=== PATIENT | male | born 1930 | race Caucasian/White ===

== ENCOUNTER 2020-09-17 17:59 | Inpatient (IN) ==
--- NOTE | 2020-09-17 18:24 | Emergency Department Note ---
History of Present Illness General Chief complaint: Fall Stated complaint: hip dislocation Time Seen by Provider: 09/17/20 18:06 Source: patient, EMS, RN notes reviewed and old records reviewed Mode of arrival: ambulatory Limitations: no limitations History of Present Illness Maximum Pain Intensity: 2 This patient is an 89-year-old male who was brought in by EMS after apparently falling. He tells me he said he thinks he slipped on slippery floor as he turned too fast. He hit his head and his left hip pain he denies any syncope or loss of conscious. He has mild headache only. No change in vision. Denies ne ck pain chest pain shortness of breath or abdominal pain. He does not believe he is on any blood thinners. His left hip hurts with any movement. He has not had any surgery in the left hip before. No focal numbness or weakness besides limitation of the left leg/hip secondary to pain/deformity. No recent illness. Home Medications Medication Instructions Recorded Confirmed Type acetaminophen 500 mg tablet 1,000 mg PO Q6H PRN MDD 4g 09/17/20 09/17/20 History aspirin 81 mg tablet,delayed 81 mg PO DAILY 09/17/20 09/17/20 History release (Aspirin Low Dose) atorvastatin 20 mg tablet 20 mg PO DAILY 09/17/20 09/17/20 History cholecalciferol (vitamin D3) 25 25 mcg PO DAILY 09/17/20 09/17/20 History mcg (1,000 unit) tablet (Vitamin D3) docusate sodium 100 mg capsule 100 mg PO BID 09/17/20 09/17/20 History famotidine 20 mg tablet 20 mg PO BID 09/17/20 09/17/20 History melatonin 1 mg tablet 1 mg PO HS 09/17/20 09/17/20 History Allergies Allergy/AdvReac Type Severity Reaction Status Date / Time No Known Allergies Allergy Mild Verified 09/17/20 19:28 Past Med/Surg History Social History Smoking Status: Never smoker Preferred Language: Yoruba Feels Safe at Home: Yes Immunizations: Past medical historyhe denies. I did review the medication list is sent from [place] and he is on very few medications given his age Social historyhe lives at [place] Review of Systems A total of 10 systems reviewed and were otherwise negative Physical Exam Vital Signs Vital Signs - 24 hr 09/17/20 18:07 09/17/20 18:10 09/17/20 18:16 Temperature 36.8 C Temperature Source Oral Pulse Rate 90 84 Pulse Rate from SpO2 Sensor 86 Pulse Rhythm Regular Pulse Strength Normal Respiratory Rate 23 20 Respiratory Effort / Characteristics Non-Labored Spontaneous Respiratory Depth Normal Respiratory Pattern Regular Blood Pressure 195/112 H 195/112 H Blood Pressure Mean 139 139 Blood Pressure Position Sitting Pulse Oximetry 94 97 100 Oxygen Delivery Method Room Air Room Air Sepsis Recent Fever Within 48 Hours No Sepsis New/Unexplained Change in Mental Status No Sepsis Action Taken by Nursing No Action Required 09/17/20 18:30 09/17/20 19:00 Temperature Temperature Source Pulse Rate 94 H 97 H Pulse Rate from SpO2 Sensor 93 H 99 H Pulse Rhythm Pulse Strength Respiratory Rate 41 H 29 H Respiratory Effort / Characteristics Respiratory Depth Respiratory Pattern Blood Pressure 177/100 H 174/100 H Blood Pressure Mean 125 124 Blood Pressure Position Pulse Oximetry 100 95 Oxygen Delivery Method Sepsis Recent Fever Within 48 Hours Sepsis New/Unexplained Change in Mental Status Sepsis Action Taken by Nursing General: Well developed well nourished older male who in no acute distress, breathing comfortably on room air. Normal speech HEENT: Normal cephalic atraumatic with exception of some dried blood in the posterior scalp. There is a small abrasion but nothing amenable to suturing/magalis.. Pupils are equal round and reactive to light. Extraocular movements are intact. Oropharynx is pink with moist mucous membranes. No swelling of the mouth lips or tongue. Neck: Supple with a midline trachea. No meningeal signs or stiffness, no JVD or bruits. No Stridor. Chest: Clear to auscultation bilaterally. No wheezes or rhonchi. No increased work of breathing. Heart: Regular rate and rhythm without murmurs or gallops. Abdomen: Soft nontender, nondistended without rebound guarding or rigidity. Extremities: No cyanosis clubbing or edema. No calf tenderness or assymetry. Left lower extremity is shortened compared to the right and is tender and swollen along the left lateral hip. He is able to wiggle the toes is good capillary refill and sensation. He does have a distal pulse. There is no laceration or skin break. There is no surgical incisions along the hip. Spine/Back. Non tender to palpation. No CVA tenderness Skin: Good turgor without rashes. Neurologic exam: Cranial nerves two through 12 are intact. Motor and sensation are intact and symmetrical throughout. Course Administered Medications Discontinued Medications Morphine Sulfate (Morphine Sulfate 2 Mg/Ml Carp) 2 mg IV NOW STA Stop: 09/17/20 18:59 Last Admin: 09/17/20 19:03 Dose: 2 mg Documented by: [id number] Ondansetron HCl (Ondansetron Inj 2 Mg/Ml 2 Ml Vial) 4 mg IV NOW STA Stop: 09/17/20 18:59 Last Admin: 09/17/20 19:03 Dose: 4 mg Documented by: [id number] Medical Decision Making Differential Diagnosis Hip fracture, hip dislocation, trauma, head injury, cervical spine injury, intracranial hemorrhage, syncope, electrolyte or metabolic abnormality, Covid Medical Records Attestation: I reviewed the patient's medical records. Home Medications Current Medication List: was personally reviewed by me Laboratory Data Attestation: I reviewed the patient's lab results. Result diagrams: 09/17/20 18:15 09/17/20 18:15 Lab Results 09/17/20 09/17/20 09/17/20 Range/Units 18:15 18:15 18:15 WBC 8.33 (4.8-10.8) K/uL RBC 4.61 L (4.7-6.1) M/uL Hgb 15.2 (14.0-18.0) g/dL Hct 44.3 (42-52) % MCV 96.1 (80-100) fL MCH 33.0 (25-34) pg MCHC 34.3 (32-36) g/dL RDW Std Deviation 43.9 (36.4-46.3) fL RDW Coeff of Tri 12.5 (11.5-14.5) % Plt Count 221 (130-400) K/uL MPV 9.0 (7.4-10.4) fL Immature Gran % (Auto) 0.1 % Neut % (Auto) 53.0 % Lymph % (Auto) 35.9 % [place] % (Auto) 9.1 % Eos % (Auto) 1.7 % Baso % (Auto) 0.2 % Neut # (Auto) 4.41 (1.4-6.5) K/uL Lymph # (Auto) 2.99 (1.2-3.4) K/uL [place] # (Auto) 0.76 H (0.11-0.59) K/uL Eos # (Auto) 0.14 (0-0.5) K/uL Baso # (Auto) 0.02 (0-0.2) K/uL Immature Gran # (Auto) 0.01 (0.00-0.02) K/uL PT 9.4 (9.0-12.0) Seconds INR 0.9 (0.9-1.1) APTT 24.2 (21.0-31.0) Seconds PTT Ratio 0.9 Sodium 139 (136-145) mmol/L Potassium 4.0 (3.5-5.1) mmol/L Chloride 108 H (98-107) mmol/L Carbon Dioxide 24 (21-32) mmol/L Anion Gap 7.0 (3-11) BUN 20 H (7-18) mg/dl Creatinine 1.15 (0.6-1.4) mg/dl Est Cr Clr Drug Dosing 45.8 ml/min Est GFR ( Amer) 65.5 ml/min Est GFR (Non-Af Amer) 56.5 ml/min BUN/Creatinine Ratio 17.4 (10-20) Glucose 98 (70-99) mg/dl Calcium 9.4 (8.5-10.1) mg/dl Magnesium 2.1 (1.8-2.4) mg/dl Total Bilirubin 0.3 (0.2-1) mg/dl AST 24 (15-37) U/L ALT 22 (12-78) U/L Alkaline Phosphatase 116 (45-117) U/L Total Protein 7.7 (6.4-8.2) gm/dl Albumin 3.7 (3.4-5.0) gm/dl Globulin 4.0 (2.5-4.0) gm/dl Albumin/Globulin Ratio 0.9 (0.9-2) TSH 3.300 (0.300-4.500) uIu/ml Specimen Hemolysis COVID-19 Eval Order 09/17/20 Range/Units 19:42 WBC (4.8-10.8) K/uL RBC (4.7-6.1) M/uL Hgb (14.0-18.0) g/dL Hct (42-52) % MCV (80-100) fL MCH (25-34) pg MCHC (32-36) g/dL RDW Std Deviation (36.4-46.3) fL RDW Coeff of Tri (11.5-14.5) % Plt Count (130-400) K/uL MPV (7.4-10.4) fL Immature Gran % (Auto) % Neut % (Auto) % Lymph % (Auto) % [place] % (Auto) % Eos % (Auto) % Baso % (Auto) % Neut # (Auto) (1.4-6.5) K/uL Lymph # (Auto) (1.2-3.4) K/uL [place] # (Auto) (0.11-0.59) K/uL Eos # (Auto) (0-0.5) K/uL Baso # (Auto) (0-0.2) K/uL Immature Gran # (Auto) (0.00-0.02) K/uL PT (9.0-12.0) Seconds INR (0.9-1.1) APTT (21.0-31.0) Seconds PTT Ratio Sodium (136-145) mmol/L Potassium (3.5-5.1) mmol/L Chloride (98-107) mmol/L Carbon Dioxide (21-32) mmol/L Anion Gap (3-11) BUN (7-18) mg/dl Creatinine (0.6-1.4) mg/dl Est Cr Clr Drug Dosing ml/min Est GFR ( Amer) ml/min Est GFR (Non-Af Amer) ml/min BUN/Creatinine Ratio (10-20) Glucose (70-99) mg/dl Calcium (8.5-10.1) mg/dl Magnesium (1.8-2.4) mg/dl Total Bilirubin (0.2-1) mg/dl AST (15-37) U/L ALT (12-78) U/L Alkaline Phosphatase (45-117) U/L Total Protein (6.4-8.2) gm/dl Albumin (3.4-5.0) gm/dl Globulin (2.5-4.0) gm/dl Albumin/Globulin Ratio (0.9-2) TSH (0.300-4.500) uIu/ml Specimen Hemolysis COVID-19 Eval Order Covid19 at [facility] Imaging Data My Impression: X-ray of left hip/pelvis: There was a comminuted left femur fracture that was intertrochanteric with some angulation. Radiologist's Impression: Hip/Pelvis X-Ray 09/17/20 18:16 XR hip LT 2V w pelvis HISTORY: 89 years-old Male left hip pain, fall acute left hip pain status post fall COMPARISON: CT abdomen and pelvis 02/18/2007 TECHNIQUE: AP view of the pelvis with 2 views of the left hip FINDINGS: Mild to moderate osteoarthritis of the there is an acute comminuted intertrochanteric fracture of the left femur with mild impaction and mild apex superior lateral angulation. The greater trochanteric fracture fragment is displaced laterally 2.5 cm. The lesser trochanteric fracture fragment is displaced a few millimeters medially. Moderate adjacent soft tissue swelling. IMPRESSION: Acute comminuted intertrochanteric fracture of the left femur with mild impaction, angulation and displacement. ACT 112: Negative or not required by law. The above report was generated using voice recognition software. It may contain grammatical, syntax or spelling errors. Electronically signed by: Samuel Wayne M.D. 09/17/2020 6:50 PM Chest X-Ray 09/17/20 18:17 XR chest 1V portable HISTORY: 89 years-old Male fall acute chest trauma status post fall COMPARISON: Acute abdominal series radiographs 02/18/2007 TECHNIQUE: Portable supine AP view of the chest FINDINGS: Cardiomediastinal and hilar silhouettes are within normal limits. Unchanged blunting of the left costophrenic angle. Unchanged calcified granuloma of the left lung base. Degenerative changes of the shoulders and spine. Hiatal hernia. IMPRESSION: No acute process. ACT 112: Negative or not required by law. The above report was generated using voice recognition software. It may contain grammatical, syntax or spelling errors. Electronically signed by: Samuel Wayne M.D. 09/17/2020 6:[address] 09/17/20 18:41 CT cervical spine wo con CLINICAL HISTORY: 89 years-old Male with fall. Acute neck pain status post fall COMPARISON: Head CT of same day TECHNIQUE: Multiple axial CT images of the cervical spine were obtained without contrast. A dose lowering technique was utilized adhering to the principles of ALARA. FINDINGS: Severe degeneration at C1-C2. Mild multilevel intervertebral disc space narrowing with moderate spondylitic spurring and moderate to severe facet arthrosis. No acute fracture or subluxation. No endplate erosions. Evaluation of the central canal and neuroforamina is better assessed by MRI. Multilevel neural foraminal narrowing is noted. Mastoid air cells are clear. Pleural parenchymal scarring of the lung apices. No prevertebral edema. Calcified plaque of the carotid bulbs. IMPRESSION: No acute fracture or subluxation. ACT 112: Negative or not required by law. The above report was generated using voice recognition software. It may contain grammatical, syntax or spelling errors. Electronically signed by: Samuel Wayne M.D. 09/17/2020 7:[address] 09/17/20 18:41 CT head/brain wo con CLINICAL HISTORY: 89 years-old Male with fall. Acute head and neck injury status post fall TECHNIQUE: Multiple axial CT images of the head were obtained without contrast. A dose lowering technique was utilized adhering to the principles of ALARA. CT DOSE: 994.22 mGy.cm COMPARISON: CT cervical spine of same day FINDINGS: Motion degraded exam. No acute intracranial hemorrhage, midline shift, intracranial mass, hydrocephalus, territorial ischemia or abnormal extra-axial collection. Age-related involutional changes. White matter hypodensities suggestive of chronic microvascular ischemic disease. Cerebral vascular calcifications. The calvarium is intact. Prior bilateral lens repair. The paranasal sinuses, mastoid air cells, and middle ear cavities are clear. IMPRESSION: No acute intracranial abnormality. ACT 112: Negative or not required by law. The above report was generated using voice recognition software. It may contain grammatical, syntax or spelling errors. Electronically signed by: Samuel Wayne M.D. 09/17/2020 7:46 PM Abdomen/Pelvis CT 09/17/20 19:[address] WITHOUT CONTRAST CT DOSE: 270.56 mGy.cm HISTORY: Acute generalized abdominal pain status post fall fall TECHNIQUE: Multiaxial CT images of the abdomen and pelvis were performed without contrast. A dose lowering technique was utilized adhering to the principles of ALARA. COMPARISON STUDY: CT abdomen pelvis 02/18/2007. FINDINGS: Trace left pleural effusion. There is associated pleural thickening, new from 2006. Mild left lung base atelectasis/scarring. The right lung base is clear. No pneumatosis or pneumoperitoneum. Coronary artery calcifications. The unenhanced spleen, pancreas and adrenal glands are unremarkable. Cholecystectomy. Unremarkable liver. Mild nonspecific bilateral perinephric stranding. No hydronephrosis. Prostamegaly. Unremarkable urinary bladder. Calcified plaque the abdominal aorta without aneurysm. No adenopathy. Small to moderate hiatal hernia. Moderate sized diverticulum involves the third portion the duodenum. No bowel obstruction or bowel wall thickening. Colonic diverticulosis. No CT evidence of acute diverticulitis. Small fat and small bowel-containing right inguinal hernia without obstruction. There is an acute comminuted mildly displaced, impacted and related fracture of the left intertrochanteric femur. Mild deep tissue edema. Demineralized appearance of the bones. Chronic appearing left-sided rib fractures. IMPRESSION: 1. Acute mildly impacted, comminuted, displaced and angulated intratrochanteric fracture of the left femur. 2. No acute intra-abdominal or intrapelvic abnormality. 3. Trace left pleural effusion with left lung base pleural thickening. 4. Small to moderate hiatal hernia. 5. Small fat and small bowel containing right inguinal hernia. No bowel obstruction. 6. Additional findings as above. ACT 112: Negative or not required by law. The above report was generated using voice recognition software. It may contain grammatical, syntax or spelling errors. Electronically signed by: Samuel Wayne M.D. 09/17/2020 8:13 PM ECG Data Attestation: I personally reviewed and interpreted this ECG as follows: Indication: + weakness Rate (beats per minute): 100 Rhythm: + sinus with SA ECG Intervals/blocks: + Normal QRS, + Normal QT and + Normal IA ECG [place]: + Normal ECG Findings: no PACs or no PVCs Comparison ECG Date: from (02/18/07) Change: no significant change MDM Narrative This patient comes in as described above. He was placed on a college advisor room C7. He suffered what sounds like a mechanical fall he hit his head and his hip. His hip is obviously rotated and shortened concern for fracture and/or dislocation. In light of this, I did order a x-ray of the hip and pelvis initially as well as a chest x-ray. I called the charge nurse to try to expedite this. Blood work was obtained. EKG was obtained which does not show any definite ischemic changes or significant arrhythmia. X-rays of the hip shows a comminuted fracture without dislocation. There is no pelvic fracture. He was hemodynamically stable and sent over to CAT scan. CAT scan of his head and neck were unremarkable as well as the pelvis besides the hip fracture. There are no other acute findings. He has a small abrasion to the posterior scalp which does not require any suturing or stapling. He believes he is up-to-date on his tetanus booster. He has nursing of electrolyte or metabolic abnormalities. He was also Covid tested and was negative. Due to his hip fracture, he will need to be admitted for further treatment and evaluation. I have consulted Dr. Lozada who will see him in ER for these measures. Continuous cardiac monitoring: Due to the patient's symptoms, he was placed on a college advisor and orders placed in EMR. He was noted to be in normal sinus rhythm with a rate of 95 upon my interpretation. Impression & Plan Hip fracture, Fall, Closed head injury, Up to date with [id number] vaccination, Acute hip pain Discharge Plan Visit Data Chief Complaint: Fall Stated Complaint: hip dislocation ED Provider: Adarsh Ferreira Discharge Problem: Hip fracture, Fall, Closed head injury, Up to date with [id number] vaccination, Acute hip pain Forms Stand Alone Forms: My [facility] Prescriptions Prescriptions: No Action atorvastatin 20 mg tablet 20 mg PO DAILY RF: 0 aspirin [Aspirin Low Dose] 81 mg Tablet,Delayed Release (Dr/Ec) 81 mg PO DAILY RF: 0 famotidine 20 mg tablet 20 mg PO BID RF: 0 docusate sodium 100 mg Capsule 100 mg PO BID RF: 0 melatonin 1 mg Tablet 1 mg PO HS RF: 0 cholecalciferol (vitamin D3) [Vitamin D3] 25 mcg (1,000 unit) Tablet 25 mcg PO DAILY RF: 0 acetaminophen 500 mg Tablet 1,000 mg PO Q6H MDD 4g PRN (Reason: Fever Or Pain) RF: 0 Referrals Referrals: [facility] [Primary Care Provider] - Discharge Problem: Hip fracture Qualifiers: Encounter type: initial encounter Fracture type: closed Laterality: left Qualified Code(s): S72.002A - Fracture of unspecified part of neck of left femur, initial encounter for closed fracture Fall Qualifiers: Encounter type: initial encounter Qualified Code(s): W19.XXXA - Unspecified fall, initial encounter Closed head injury Qualifiers: Encounter type: initial encounter Qualified Code(s): S09.90XA - Unspecified injury of head, initial encounter Acute hip pain Qualifiers: Laterality: left Qualified Code(s): M25.552 - Pain in left hip
[2020-09-17 18:28] LABS: Basophils # (auto) 0.02 K/uL (0-0.2); Basophils % (auto) 0.2 %; Eosinophils # (auto) 0.14 K/uL (0-0.5); Eosinophils % (auto) 1.7 %; Hematocrit (blood only) 44.3 % (42-52); Hemoglobin 15.2 g/dL (14.0-18.0); Immature Granulocytes # (auto) 0.01 K/uL (0.00-0.02); Immature Granulocytes % (auto) 0.1 %; Lymphocytes # (auto) 2.99 K/uL (1.2-3.4); Lymphocytes % (auto) 35.9 %; Mean Corpuscular Hgb Conc 34.3 g/dL (32-36); Mean Corpuscular Volume 96.1 fL (80-100); Monocytes # (auto) 0.76 K/uL (0.11-0.59); Monocytes % (auto) 9.1 %; Neutrophils # (auto) 4.41 K/uL (1.4-6.5); Platelet Count 221 K/uL (130-400); RDW Coefficient of Variation 12.5 % (11.5-14.5); RDW Standard Deviation 43.9 fL (36.4-46.3); Red Blood Count 4.61 M/uL (4.7-6.1); White Blood Count 8.33 K/uL (4.8-10.8)
[2020-09-17 18:41] LABS: INR 0.9 (0.9-1.1); Partial Thromboplastin Ratio 0.9; Partial Thromboplastin Time 24.2 Seconds (21.0-31.0); Prothrombin Time 9.4 Seconds (9.0-12.0)
[2020-09-17 18:46] LABS: Albumin Level 3.7 gm/dl (3.4-5.0); BUN Creatinine Ratio 17.4 (10-20); Calcium 9.4 mg/dl (8.5-10.1); Creatinine Clr Calc Pharmacy 45.8 ml/min; Est GFR (African American) 65.5 ml/min; Est GFR (Non-African American) 56.5 ml/min; Magnesium 2.1 mg/dl (1.8-2.4)
--- NOTE | 2020-09-17 18:52 | XRay Report ---
XR hip LT 2V w pelvis HISTORY: 89 years-old Male left hip pain, fall acute left hip pain status post fall COMPARISON: CT abdomen and pelvis 02/18/2007 TECHNIQUE: AP view of the pelvis with 2 views of the left hip FINDINGS: Mild to moderate osteoarthritis of the there is an acute comminuted intertrochanteric fracture of the left femur with mild impaction and mild apex superior lateral angulation. The greater trochanteric f racture fragment is displaced laterally 2.5 cm. The lesser trochanteric fracture fragment is displace d a few millimeters medially. Moderate adjacent soft tissue swelling. IMPRESSION: Acute comminuted intertrochanteric fracture of the left femur with mild impaction, angula tion and displacement. ACT 112: Negative or not required by law. The above report was generated using voice recognition software. It may contain grammatical, syntax o r spelling errors. Electronically signed by: Samuel Wayne M.D. 09/17/2020 6:50 PM
--- NOTE | 2020-09-17 18:54 | XRay Report ---
XR chest 1V portable HISTORY: 89 years-old Male fall acute chest trauma status post fall COMPARISON: Acute abdominal series radiographs 02/18/2007 TECHNIQUE: Portable supine AP view of the chest FINDINGS: Cardiomediastinal and hilar silhouettes are within normal limits. Unchanged blunting of the left cost ophrenic angle. Unchanged calcified granuloma of the left lung base. Degenerative changes of the shou lders and spine. Hiatal hernia. IMPRESSION: No acute process. ACT 112: Negative or not required by law. The above report was generated using voice recognition software. It may contain grammatical, syntax o r spelling errors. Electronically signed by: Samuel Wayne M.D. 09/17/2020 6:52 PM
[2020-09-17 18:58] LABS: Albumin Globulin Ratio 0.9 (0.9-2); Bilirubin,Total 0.3 mg/dl (0.2-1); Thyroid Stimulating Hormone 3.3 uIu/ml (0.300-4.500); Total Protein 7.7 gm/dl (6.4-8.2)
[2020-09-17] MEDS ORDERED: MoRPHine SULFATE 2 MG/ML CARP IV STA (18:58)
[2020-09-17] MEDS ORDERED: ONDANSETRON INJ 2 MG/ML 2 ML VIAL IV STA (18:58)
--- NOTE | 2020-09-17 19:47 | CT Scan Report ---
CT head/brain wo con CLINICAL HISTORY: 89 years-old Male with fall. Acute head and neck injury status post fall TECHNIQUE: Multiple axial CT images of the head were obtained without contrast. A dose lowering tech nique was utilized adhering to the principles of ALARA. CT DOSE: 994.22 mGy.cm COMPARISON: CT cervical spine of same day FINDINGS: Motion degraded exam. No acute intracranial hemorrhage, midline shift, intracranial mass, hydrocephal us, territorial ischemia or abnormal extra-axial collection. Age-related involutional changes. White matter hypodensities suggestive of chronic microvascular ischemic disease. Cerebral vascular calcific ations. The calvarium is intact. Prior bilateral lens repair. The paranasal sinuses, mastoid air cells, and m iddle ear cavities are clear. IMPRESSION: No acute intracranial abnormality. ACT 112: Negative or not required by law. The above report was generated using voice recognition software. It may contain grammatical, syntax o r spelling errors. Electronically signed by: Samuel Wayne M.D. 09/17/2020 7:46 PM
--- NOTE | 2020-09-17 19:53 | CT Scan Report ---
CT cervical spine wo con CLINICAL HISTORY: 89 years-old Male with fall. Acute neck pain status post fall COMPARISON: Head CT of same day TECHNIQUE: Multiple axial CT images of the cervical spine were obtained without contrast. A dose low ering technique was utilized adhering to the principles of ALARA. FINDINGS: Severe degeneration at C1-C2. Mild multilevel intervertebral disc space narrowing with mode rate spondylitic spurring and moderate to severe facet arthrosis. No acute fracture or subluxation. N o endplate erosions. Evaluation of the central canal and neuroforamina is better assessed by MRI. Mul tilevel neural foraminal narrowing is noted. Mastoid air cells are clear. Pleural parenchymal scarring of the lung apices. No prevertebral edema. Calcified plaque of the carot id bulbs. IMPRESSION: No acute fracture or subluxation. ACT 112: Negative or not required by law. The above report was generated using voice recognition software. It may contain grammatical, syntax o r spelling errors. Electronically signed by: Samuel Wayne M.D. 09/17/2020 7:52 PM
--- NOTE | 2020-09-17 20:15 | CT Scan Report ---
ABDOMEN AND PELVIS CT WITHOUT CONTRAST CT DOSE: 270.56 mGy.cm HISTORY: Acute generalized abdominal pain status post fall fall TECHNIQUE: Multiaxial CT images of the abdomen and pelvis were performed without contrast. A dose lo wering technique was utilized adhering to the principles of ALARA. COMPARISON STUDY: CT abdomen pelvis 02/18/2007. FINDINGS: Trace left pleural effusion. There is associated pleural thickening, new from 2006. Mild le ft lung base atelectasis/scarring. The right lung base is clear. No pneumatosis or pneumoperitoneum. Coronary artery calcifications. The unenhanced spleen, pancreas and adrenal glands are unremarkable. Cholecystectomy. Unremarkable li anthony. Mild nonspecific bilateral perinephric stranding. No hydronephrosis. Prostamegaly. Unremarkable urinary bladder. Calcified plaque the abdominal aorta without aneurysm. No adenopathy. Small to moderate hiatal hernia. Moderate sized diverticulum involves the third portion the duodenum. No bowel obstruction or bowel wall thickening. Colonic diverticulosis. No CT evidence of acute diver ticulitis. Small fat and small bowel-containing right inguinal hernia without obstruction. There is a n acute comminuted mildly displaced, impacted and related fracture of the left intertrochanteric femu r. Mild deep tissue edema. Demineralized appearance of the bones. Chronic appearing left-sided rib fr actures. IMPRESSION: 1. Acute mildly impacted, comminuted, displaced and angulated intratrochanteric fracture of the left femur. 2. No acute intra-abdominal or intrapelvic abnormality. 3. Trace left pleural effusion with left lung base pleural thickening. 4. Small to moderate hiatal hernia. 5. Small fat and small bowel containing right inguinal hernia. No bowel obstruction. 6. Additional findings as above. ACT 112: Negative or not required by law. The above report was generated using voice recognition software. It may contain grammatical, syntax o r spelling errors. Electronically signed by: Samuel Wayne M.D. 09/17/2020 8:13 PM
--- NOTE | 2020-09-17 20:51 | History & Physical Report ---
Date of Service September 17, 2020 Assessment & Plan (1) Closed left hip fracture: Plan: N.p.o. after midnight Admit to [facility] 5/325, 1 p.o. every 6 hours as needed moderate pain, 2 p.o. every 6 hours as needed severe pain Dilaudid 0.25 mg IV every 3 hours as needed moderate pain Dilaudid 0.5 mg IV every 3 hours as needed severe pain NSS + KCl 20 mEq at 100 mils per hour Famotidine 20 mg IV every 12 hours Zofran 4 mg IV every 6 hours as needed Consult orthopedic surgery (2) Fall: Plan: Status post mechanical fall (3) Hyperlipidemia: Plan: Resume atorvastatin 20 mg daily after surgery (4) GERD (gastroesophageal reflux disease): Plan: Change famotidine to IV as noted (5) Insomnia: Plan: Melatonin 1 mg p.o. at bedtime as needed (6) Closed head injury: Plan: CT of head and cervical spine negative History of Present Illness Chief Complaint: The patient presents to the emergency department after a mechanical fall at his residence at [facility], where he fell on his left hip, and sustained immediate pain and inability to ambulate Primary Care Provider: [facility] The patient is a 89-year-old male with a past medical history including hype rlipidemia, GERD, insomnia, and vitamin D deficiency, who presents with symptoms as noted above. Work-up in the emergency department included x-ray of pelvis and hip, which showed a closed left hip fracture. CT scan of head, cervical spine and abdomen pelvis were all normal. COVID-19 test was negative Allergies Allergy/AdvReac Type Severity Reaction Status Date / Time No Known Allergies Allergy Mild Verified 09/17/20 19:28 Home Medications Medication Instructions Recorded Confirmed Type acetaminophen 500 mg tablet 1,000 mg PO Q6H PRN MDD 4g 09/17/20 09/17/20 History aspirin 81 mg tablet,delayed 81 mg PO DAILY 09/17/20 09/17/20 History release (Aspirin Low Dose) atorvastatin 20 mg tablet 20 mg PO DAILY 09/17/20 09/17/20 History cholecalciferol (vitamin D3) 25 25 mcg PO DAILY 09/17/20 09/17/20 History mcg (1,000 unit) tablet (Vitamin D3) docusate sodium 100 mg capsule 100 mg PO BID 09/17/20 09/17/20 History famotidine 20 mg tablet 20 mg PO BID 09/17/20 09/17/20 History melatonin 1 mg tablet 1 mg PO HS 09/17/20 09/17/20 History Past Med/Surg History Medical History (Updated 09/18/20 @ 03:24 by Chaka Casillas MD) GERD (gastroesophageal reflux disease) Hyperlipidemia Insomnia Social History Smoking Status: Never smoker Hx Alcohol Use: No Hx Substance Use: No Preferred Language: Belarusian Communication Ability: Effective Candle Maker Required: No Beliefs That Will Affect Care: None Current Living Situation: Spouse Other Information That Helps Us Care for You: No Feels Safe at Home: Yes Safety Concerns: Feels Safe At This Time Assistive Devices: Glasses Review of Systems Review of Systems: The patient denies chest pain, palpitations, shortness of breath, dyspnea on exertion, cough, lower extremity swelling, sore throat, fevers, chills, sweats, weight change, fatigue, nausea, vomiting, diarrhea , constipation, abdominal pain, pelvic pain, blood in urine or stool, dysuria, urinary frequency or urgency, lightheadedness, dizziness, headache, memory loss, loss of consciousness, rash, abnormal bruising or bleeding, focal or generalized weakness, numbness or tingling in arms, generalized arthralgias or myalgias, back or neck pain, or night sweats. The review of systems is otherwise negative other than for that already noted above, and at least 10 systems have been reviewed. Physical Exam Physical Exam: The patient is awake, alert and oriented 3, well developed and well nourished, normocephalic and atraumatic, lying in bed and in no acute distress. HEENT--PERRL, EOMI, mucous membranes and oropharynx dry. Neck--supple. No JVD. No bruits. Thyroid normal, trachea midline, no adenopathy. Heart--normal S1 and S2. No murmurs, rubs or gallops. Lungs--clear bilaterally, no respiratory distress, no accessory muscle use. Abdomen--normal bowel sounds and soft. Nontender. Nondistended, no hernias or masses, no organomegaly. Extremities--no cyanosis or clubbing. No edema. There are good distal pulses b/l. Dermatologic--normal skin turgor, normal color, no abnormal lymph nodes, no rash. Neurologic--cranial nerves II through XII grossly intact. Rheumatologic--normal range of motion. Psychiatric--normal affect. Results & Data Results & Data ([facility]) Vital Signs (Past 12 Hours) Vital Signs Temp Pulse Resp BP Pulse Ox 09/17/20 19:00 97 H 29 H 174/100 H 95 09/17/20 18:30 94 H 41 H 177/100 H 100 09/17/20 18:16 100 09/17/20 18:10 98.2 F 84 20 195/112 H 97 09/17/20 18:07 90 23 195/112 H 94 Laboratory Results Laboratory Results WBC 8.33 K/uL (4.8-10.8) 09/17/20 18:15 RBC 4.61 M/uL (4.7-6.1) L 09/17/20 18:15 Hgb 15.2 g/dL (14.0-18.0) 09/17/20 18:15 Hct 44.3 % (42-52) 09/17/20 18:15 MCV 96.1 fL (80-100) 09/17/20 18:15 MCH 33.0 pg (25-34) 09/17/20 18:15 MCHC 34.3 g/dL (32-36) 09/17/20 18:15 RDW Std Deviation 43.9 fL (36.4-46.3) 09/17/20 18:15 RDW Coeff of Tri 12.5 % (11.5-14.5) 09/17/20 18:15 Plt Count 221 K/uL (130-400) 09/17/20 18:15 MPV 9.0 fL (7.4-10.4) 09/17/20 18:15 Immature Gran % (Auto) 0.1 % 09/17/20 18:15 Neut % (Auto) 53.0 % 09/17/20 18:15 Lymph % (Auto) 35.9 % 09/17/20 18:15 [place] % (Auto) 9.1 % 09/17/20 18:15 Eos % (Auto) 1.7 % 09/17/20 18:15 Baso % (Auto) 0.2 % 09/17/20 18:15 Neut # (Auto) 4.41 K/uL (1.4-6.5) 09/17/20 18:15 Lymph # (Auto) 2.99 K/uL (1.2-3.4) 09/17/20 18:15 [place] # (Auto) 0.76 K/uL (0.11-0.59) H 09/17/20 18:15 Eos # (Auto) 0.14 K/uL (0-0.5) 09/17/20 18:15 Baso # (Auto) 0.02 K/uL (0-0.2) 09/17/20 18:15 Immature Gran # (Auto) 0.01 K/uL (0.00-0.02) 09/17/20 18:15 PT 9.4 Seconds (9.0-12.0) 09/17/20 18:15 INR 0.9 (0.9-1.1) 09/17/20 18:15 APTT 24.2 Seconds (21.0-31.0) 09/17/20 18:15 PTT Ratio 0.9 09/17/20 18:15 Sodium 139 mmol/L (136-145) 09/17/20 18:15 Potassium 4.0 mmol/L (3.5-5.1) 09/17/20 18:15 Chloride 108 mmol/L (98-107) H 09/17/20 18:15 Carbon Dioxide 24 mmol/L (21-32) 09/17/20 18:15 Anion Gap 7.0 (3-11) 09/17/20 18:15 BUN 20 mg/dl (7-18) H 09/17/20 18:15 Creatinine 1.15 mg/dl (0.6-1.4) 09/17/20 18:15 Est Cr Clr Drug Dosing 45.8 ml/min 09/17/20 18:15 Est GFR ( Amer) 65.5 ml/min 09/17/20 18:15 Est GFR (Non-Af Amer) 56.5 ml/min 09/17/20 18:15 BUN/Creatinine Ratio 17.4 (10-20) 09/17/20 18:15 Glucose 98 mg/dl (70-99) 09/17/20 18:15 Calcium 9.4 mg/dl (8.5-10.1) 09/17/20 18:15 Magnesium 2.1 mg/dl (1.8-2.4) 09/17/20 18:15 Total Bilirubin 0.3 mg/dl (0.2-1) 09/17/20 18:15 AST 24 U/L (15-37) 09/17/20 18:15 ALT 22 U/L (12-78) 09/17/20 18:15 Alkaline Phosphatase 116 U/L (45-117) 09/17/20 18:15 Total Protein 7.7 gm/dl (6.4-8.2) 09/17/20 18:15 Albumin 3.7 gm/dl (3.4-5.0) 09/17/20 18:15 Globulin 4.0 gm/dl (2.5-4.0) 09/17/20 18:15 Albumin/Globulin Ratio 0.9 (0.9-2) 09/17/20 18:15 TSH 3.300 uIu/ml (0.300-4.500) 09/17/20 18:15 Specimen Hemolysis 09/17/20 18:15 COVID-19 Eval Order Covid19 at [facility] 09/17/20 19:42 SARS-CoV-2 (PCR) NEGATIVE (Negative) 09/17/20 19:42 Blood Type O Positive 09/17/20 22:28 Antibody Screen NEGATIVE 09/17/20 22:28 Impressions Hip/Pelvis X-Ray 09/17/20 18:16 XR hip LT 2V w pelvis HISTORY: 89 years-old Male left hip pain, fall acute left hip pain status post fall COMPARISON: CT abdomen and pelvis 02/18/2007 TECHNIQUE: AP view of the pelvis with 2 views of the left hip FINDINGS: Mild to moderate osteoarthritis of the there is an acute comminuted intertrochanteric fracture of the left femur with mild impaction and mild apex superior lateral angulation. The greater trochanteric fracture fragment is displaced laterally 2.5 cm. The lesser trochanteric fracture fragment is displaced a few millimeters medially. Moderate adjacent soft tissue swelling. IMPRESSION: Acute comminuted intertrochanteric fracture of the left femur with mild impaction, angulation and displacement. ACT 112: Negative or not required by law. The above report was generated using voice recognition software. It may contain grammatical, syntax or spelling errors. Electronically signed by: Samuel Wayne M.D. 09/17/2020 6:50 PM Chest X-Ray 09/17/20 18:17 XR chest 1V portable HISTORY: 89 years-old Male fall acute chest trauma status post fall COMPARISON: Acute abdominal series radiographs 02/18/2007 TECHNIQUE: Portable supine AP view of the chest FINDINGS: Cardiomediastinal and hilar silhouettes are within normal limits. Unchanged blunting of the left costophrenic angle. Unchanged calcified granuloma of the left lung base. Degenerative changes of the shoulders and spine. Hiatal hernia. IMPRESSION: No acute process. ACT 112: Negative or not required by law. The above report was generated using voice recognition software. It may contain grammatical, syntax or spelling errors. Electronically signed by: Samuel Wayne M.D. 09/17/2020 6:[address] 09/17/20 18:41 CT cervical spine wo con CLINICAL HISTORY: 89 years-old Male with fall. Acute neck pain status post fall COMPARISON: Head CT of same day TECHNIQUE: Multiple axial CT images of the cervical spine were obtained without contrast. A dose lowering technique was utilized adhering to the principles of ALARA. FINDINGS: Severe degeneration at C1-C2. Mild multilevel intervertebral disc space narrowing with moderate spondylitic spurring and moderate to severe facet arthrosis. No acute fracture or subluxation. No endplate erosions. Evaluation of the central canal and neuroforamina is better assessed by MRI. Multilevel neural foraminal narrowing is noted. Mastoid air cells are clear. Pleural parenchymal scarring of the lung apices. No prevertebral edema. Calcified plaque of the carotid bulbs. IMPRESSION: No acute fracture or subluxation. ACT 112: Negative or not required by law. The above report was generated using voice recognition software. It may contain grammatical, syntax or spelling errors. Electronically signed by: Samuel Wayne M.D. 09/17/2020 7:[address] 09/17/20 18:41 CT head/brain wo con CLINICAL HISTORY: 89 years-old Male with fall. Acute head and neck injury status post fall TECHNIQUE: Multiple axial CT images of the head were obtained without contrast. A dose lowering technique was utilized adhering to the principles of ALARA. CT DOSE: 994.22 mGy.cm COMPARISON: CT cervical spine of same day FINDINGS: Motion degraded exam. No acute intracranial hemorrhage, midline shift, intracranial mass, hydrocephalus, territorial ischemia or abnormal extra-axial collection. Age-related involutional changes. White matter hypodensities suggestive of chronic microvascular ischemic disease. Cerebral vascular calcifications. The calvarium is intact. Prior bilateral lens repair. The paranasal sinuses, mastoid air cells, and middle ear cavities are clear. IMPRESSION: No acute intracranial abnormality. ACT 112: Negative or not required by law. The above report was generated using voice recognition software. It may contain grammatical, syntax or spelling errors. Electronically signed by: Samuel Wayne M.D. 09/17/2020 7:46 PM Abdomen/Pelvis CT 09/17/20 19:[address] WITHOUT CONTRAST CT DOSE: 270.56 mGy.cm HISTORY: Acute generalized abdominal pain status post fall fall TECHNIQUE: Multiaxial CT images of the abdomen and pelvis were performed without contrast. A dose lowering technique was utilized adhering to the principles of ALARA. COMPARISON STUDY: CT abdomen pelvis 02/18/2007. FINDINGS: Trace left pleural effusion. There is associated pleural thickening, new from 2006. Mild left lung base atelectasis/scarring. The right lung base is clear. No pneumatosis or pneumoperitoneum. Coronary artery calcifications. The unenhanced spleen, pancreas and adrenal glands are unremarkable. Cholecyst ectomy. Unremarkable liver. Mild nonspecific bilateral perinephric stranding. No hydronephrosis. Prostamegaly. Unremarkable urinary bladder. Calcified plaque the abdominal aorta without aneurysm. No adenopathy. Small to moderate hiatal hernia. Moderate sized diverticulum involves the third portion the duodenum. No bowel obstruction or bowel wall thickening. Colonic diverticulosis. No CT evidence of acute diverticulitis. Small fat and small bowel-containing right inguinal hernia without obstruction. There is an acute comminuted mildly displaced, impacted and related fracture of the left inter trochanteric femur. Mild deep tissue edema. Demineralized appearance of the bones. Chronic appearing left-sided rib fractures. IMPRESSION: 1. Acute mildly impacted, comminuted, displaced and angulated intratrochanteric fracture of the left femur. 2. No acute intra-abdominal or intrapelvic abnormality. 3. Trace left pleural effusion with left lung base pleural thickening. 4. Small to moderate hiatal hernia. 5. Small fat and small bowel containing right inguinal hernia. No bowel obstruction. 6. Additional findings as above. ACT 112: Negative or not required by law. The above report was generated using voice recognition software. It may contain grammatical, syntax or spelling errors. Electronically signed by: Samuel Wayne M.D. 09/17/2020 8:13 PM Code Status & VTE Plan VTE Prophylaxis Plan VTE Prophylaxis will be ordered: Yes PG Care Time/CCT Total # of Minutes Spent Total Time Spent with Patient: Total time spent is greater than 50% in coordination of care (as documented) at patient's floor/unit and/or counseling patient: Coding Level of Care Code 25518 Initial Inpt Care Lvl 2 Diagnoses Closed left hip fracture S72.002A Fall W19.XXXA Encounter type: initial encounter Hyperlipidemia E78.5 GERD (gastroesophageal reflux disease) K21.9 Insomnia G47.00 Closed head injury S09.90XA Encounter type: initial encounter (1) Fall Encounter type: initial encounter Qualified Code(s): W19.XXXA - Unspecified fall, initial encounter (2) Closed head injury Encounter type: initial encounter Qualified Code(s): S09.90XA - Unspecified injury of head, initial encounter
[2020-09-17] MEDS ORDERED: HYDROCODONE/ACETAMOPHEN 5/325MG TAB PO ONE (21:38)
[2020-09-17] MEDS ORDERED: HYDROmorphone INJ 0.5 MG/0.5 ML SYR IV PRN (22:13)
[2020-09-17] MEDS ORDERED: bisacodyL 10 MG SUPP PR PRN (22:13)
[2020-09-17] MEDS ORDERED: HYDROCODONE/ACETAMOPHEN 5/325MG TAB PO PRN (22:13)
[2020-09-17] MEDS ORDERED: MAGNESIUM HYDROXIDE SUSP 30 ML UDC PO PRN (22:13)
[2020-09-17] MEDS ORDERED: NALOXONE HCL 0.4 MG/1 ML VIAL/CARP IV PRN (22:13)
[2020-09-17] MEDS: LACTATED RINGER'S 1,000 ML IV SCH (22:48)
[2020-09-17] MEDS: DOCUSATE SODIUM/SENNA 50/8.6MG TAB PO SCH (22:49)
[2020-09-18] MEDS: FAMOTIDINE 20 MG in SYRINGE 3 ML IV SCH ×2 (03:48→21:21)
--- NOTE | 2020-09-18 06:32 | Orthopedic Consultation ---
Date of Service September 18, 2020 Assessment & Plan (1) Hip fracture: Displaced peritrochanteric femur fracture. Recommend surgical stabilization with long cephalomedullary nail (TFN) as soon as medically cleared - will add on for surgery this afternoon. - NPO - Will discuss with family - Expect at least 3-day hospital stay postoperatively for PT/OT. - Plan for DVT prophylaxis for least 6 weeks. -The risks and benefits of surgical stabilization of this hip fracture was discussed with the patient this morning. The risks we discussed included but not limited to infection, neurovascular injury, arthrofibrosis of the hip, heterotopic ossification, nonunion/malunion, symptomatic or problematic implants requiring secondary surgery, pain syndromes, blood clots, and complications related to anesthesia. He asked appropriate questions, demonstrated good understanding, and elected to proceed with surgical fixation of his hip fracture. We discussed other family members and he stated there was a cousin that he would like me to talk to. That contact that was not available in the chart this morning. We will need to clarify. He states that he usually makes his own medical decisions. History of Present Illness Reason for Consultation: Left peritrochanteric hip fracture. Requesting Physician: . Attending Physician: Chaka Casillas MD 89-year-old male who primarily uses a walker for balance prior to a fall was admitted to the emergency room and subsequently to the hospital for a left peritrochanteric fracture. He reports he [facility] when he [facility]. His 1 foot hit the other and he fell directly onto the left hip. Immediate pain and inability to weight-bear. He was brought by EMS to the emergency room. He denied previous hip pain or issues or surgeries to that hip. He denies any other site of injury. Allergies Allergy/AdvReac Type Severity Reaction Status Date / Time No Known Allergies Allergy Mild Verified 09/17/20 19:28 Home Medications Medication Instructions Recorded Confirmed Type acetaminophen 500 mg tablet 1,000 mg PO Q6H PRN MDD 4g 09/17/20 09/17/20 History aspirin 81 mg tablet,delayed 81 mg PO DAILY 09/17/20 09/17/20 History release (Aspirin Low Dose) atorvastatin 20 mg tablet 20 mg PO DAILY 09/17/20 09/17/20 History cholecalciferol (vitamin D3) 25 25 mcg PO DAILY 09/17/20 09/17/20 History mcg (1,000 unit) tablet (Vitamin D3) docusate sodium 100 mg capsule 100 mg PO BID 09/17/20 09/17/20 History famotidine 20 mg tablet 20 mg PO BID 09/17/20 09/17/20 History melatonin 1 mg tablet 1 mg PO HS 09/17/20 09/17/20 History Past Med/Surg History Medical History (Updated 09/18/20 @ 08:47 by Haroon Gary MD) Anemia GERD (gastroesophageal reflux disease) Hyperlipidemia Insomnia Social History Smoking Status: Never smoker Hx Alcohol Use: No Hx Substance Use: No Preferred Language: Bermudian Communication Ability: Effective Wired Music Operator Required: No Beliefs That Will Affect Care: None Current Living Situation: Spouse Other Information That Helps Us Care for You: No Feels Safe at Home: Yes Safety Concerns: Feels Safe At This Time Assistive Devices: Glasses Review of Systems All systems reviewed & are unremarkable except as noted in HPI & below. Physical Exam LLE: The skin overlying the hip was without contusion or other compromise. He is nontender along his femur. He had tenderness by the greater trochanter. Is nontender along the tibia and had full motion through the ankle. He is neurovascular intact distally. The remainder his bilateral upper and right lower extremities were without evidence of trauma. Constitutional well developed and well nourished; no acute distress and not intoxicated appearing ENMT external ear and nose normal, oropharynx normal Respiratory normal respiratory effort; no respiratory distress Cardiovascular Extremities: normal capillary refill; no edema Skin no rashes, warm and dry Psychiatric A+Ox3, euthymic affect Results & Data Results & Data Laboratory Results . Laboratory Tests 09/17/20 09/17/20 09/17/20 18:15 18:15 19:42 WBC 8.33 Hgb 15.2 Hct 44.3 Creatinine 1.15 SARS-CoV-2 (PCR) NEGATIVE Diagnostic Findings Radiographs show a displaced peritrochanteric femur fracture. PG Care Time/CCT Total # of Minutes Spent Total Time Spent with Patient: Total time spent is greater than 50% in coordination of care (as documented) at patient's floor/unit and/or counseling patient: Coding Level of Care Code 11607 Inpt Consult Level 4 (57 - DECISION FOR SURGERY) Diagnoses Hip fracture S72.002A Encounter type: initial encounter Fracture type: closed Laterality: left (1) Hip fracture Encounter type: initial encounter Fracture type: closed Laterality: left Qualified Code(s): S72.002A - Fracture of unspecified part of neck of left femur, initial encounter for closed fracture
[2020-09-18 06:35] LABS: Basophils # (auto) 0.01 K/uL (0-0.2); Basophils % (auto) 0.1 %; Hematocrit (blood only) 38.1 % (42-52); Hemoglobin 12.9 g/dL (14.0-18.0); Immature Granulocytes # (auto) 0.03 K/uL (0.00-0.02); Immature Granulocytes % (auto) 0.3 %; Lymphocytes # (auto) 1.78 K/uL (1.2-3.4); Lymphocytes % (auto) 15.6 %; Mean Corpuscular Hemoglobin 32.6 pg (25-34); Mean Corpuscular Hgb Conc 33.9 g/dL (32-36); Mean Corpuscular Volume 96.2 fL (80-100); Monocytes # (auto) 1.09 K/uL (0.11-0.59); Monocytes % (auto) 9.6 %; Neutrophils % (auto) 74.4 %; Platelet Count 212 K/uL (130-400); RDW Coefficient of Variation 12.7 % (11.5-14.5); RDW Standard Deviation 44.6 fL (36.4-46.3); Red Blood Count 3.96 M/uL (4.7-6.1); White Blood Count 11.41 K/uL (4.8-10.8)
[2020-09-18 07:20] LABS: Albumin Level 3.2 gm/dl (3.4-5.0); BUN Creatinine Ratio 20.8 (10-20); Bilirubin,Total 0.7 mg/dl (0.2-1); Calcium 8.6 mg/dl (8.5-10.1); Creatinine Clr Calc Pharmacy 48.6 ml/min; Est GFR (African American) 75.7 ml/min; Est GFR (Non-African American) 65.3 ml/min; Globulin 3.1 gm/dl (2.5-4.0); Potassium 4.7 mmol/L (3.5-5.1); Total Protein 6.3 gm/dl (6.4-8.2)
[2020-09-18 07:20] LABS: Appearance Urine Clear (Clear); Bacteria Urine Automated Negative (Negative); Bilirubin Urine Negative (Negative); Blood Urine Negative (Negative); Color Urine Dark Yellow; Glucose Urine UA Negative (Negative); Ketones Urine 1+ (Negative); Leukocyte Esterase Urine Negative (Negative); Nitrite Urine Negative (Negative); Protein Urine Trace (Negative); RBC Urine Automated 0-4 /hpf (0-4); Specific Gravity Urine 1.028 (1.000-1.030); Urobilinogen Urine Negative (Negative); pH Urine 5.5 (4.5-7.5)
[2020-09-18 07:38] LABS: Mucus Urine Present (None Prsent)
[2020-09-18] MEDS ORDERED: PNEUMOCOCCAL POLYSACCHARIDES 25 MCG/0.5 ML VIAL/SYR IM ONE (08:00)
--- NOTE | 2020-09-18 08:30 | Electrocardiogram Report ---
Test Reason : Blood Pressure : / mmHG Vent. Rate : 081 BPM Atrial Rate : 081 BPM P-R Int : 162 ms QRS Dur : 068 ms QT Int : 352 ms P-R-T Axes : 063 047 061 degrees QTc Int : 408 ms Poor data quality, interpretation may be adversely affected Sinus rhythm with 1.2 second pause (?blocked PAC) Nonspecific ST abnormality Abnormal ECG When compared with ECG of 18-FEB-2007 17:52, HR has decreased by 21 bpm Brief pause now present Confirmed by Mitesh Monterroso ([id number]) on 09/18/2020 8:30:18 AM Referred By: REFERRED SELF Confirmed By:Mitesh Monterroso
--- NOTE | 2020-09-18 09:36 | Hospitalist Progress Note ---
Date of Service September 18, 2020 Assessment & Plan (1) Closed left hip fracture: Plan: Admit to [facility] NPO for OR today [place] 5/325, 1 p.o. every 6 hours as needed moderate pain, 2 p.o. every 6 hours as needed severe pain Dilaudid 0.25 mg IV every 3 hours as needed moderate pain Dilaudid 0.5 mg IV every 3 hours as needed severe pain LR @ 80cc/hr whie NPO Famotidine 20 mg IV every 12 hours Zofran 4 mg IV every 6 hours as needed Consult orthopedic surgery Plans for surgery this afternoon with Dr Lujan CXR without acute process, UA not convincing for any infection PT/OT post-op DVT prophylaxis per ortho post-op Labs in AM Of note, patient from memory unit at [place]. Niesha BLACK [id number] [phone] cell, home (2) Fall: Plan: Status post mechanical fall with closed head injury CT head negative. No focal deficit. Some confusion as to where he is --> frequent reorientation Can add seroquel or other if needed for -->from [facility] (3) Hyperlipidemia: Plan: Resume atorvastatin 20 mg daily after surgery (4) GERD (gastroesophageal reflux disease): Plan: Change famotidine to IV as noted (5) Insomnia: Plan: Melatonin 1 mg p.o. at bedtime as needed (6) Closed head injury: Plan: CT of head and cervical spine negative Some confusion regarding where he is at but quickly reoriented --> CT head negative on admission. Chronic microvascular changes. Continue ASA 81mg daily Plan: Dispo: NPO for OR for L troch nailing this afternoon with Dr. Lujan Admission and Anticipated Discharge Date Admission Date: September 17, 2020 Subjective Patient evaluated this morning. Pain controlled when laying still but increased with movement. Morris catheter inserted this morning and UA sent. Patient with mild confusion. Able to give year/month but thought he was in the basement of [facility]. CT of head on admission negative for CVA and no focal deficit. CXR clear. No fever, chills, visual changes, headache, chest pain, palpitations, shortness of breath, abdominal pain, nausea or vomiting. Plans for surgery later this afternoon with orthopedics. Review of Systems Review of Systems: All systems reviewed & are unremarkable except as noted in HPI & below Physical Exam Physical Exam: The patient is awake, alert and oriented (at times, not oriented to place/time during encounter but from Memory Unit [place]), well developed and well nourished, normocephalic and atraumatic, lying in bed and in no acute distress. HEENT--PERRL, EOMI, mucous membranes and oropharynx dry. Neck--supple. No JVD. No bruits. Thyroid normal, trachea midline, no adenopathy. Heart--tachycardic, normal S1 and S2. No murmurs, rubs or gallops. Lungs--clear bilaterally, no respiratory distress, no accessory muscle use. Abdomen--normal bowel sounds and soft. Nontender. Nondistended, no hernias or masses, no organomegaly. Extremities--no cyanosis or clubbing. No edema. There are good distal pulses b/l. LLE shortened and externally rotated. NVI Dermatologic--normal skin turgor, normal color, no abnormal lymph nodes, no rash. Neurologic--cranial nerves II through XII grossly intact. Urologic-- morris catheter draining yellow urine Rheumatologic--normal range of motion. Psychiatric--normal affect. Results & Data Results & Data ([facility]) Vital Signs (Past 12 Hours) Vital Signs Temp Pulse Resp BP Pulse Ox 09/18/20 07:24 37.0 C 113 H 16 128/71 95 09/17/20 22:13 37.3 C 112 H 30 H 176/93 H 97 Laboratory Results 09/18/20 09/18/20 09/18/20 Range/Units Unknown 06:04 06:04 WBC 11.41 H (4.8-10.8) K/uL RBC 3.96 L (4.7-6.1) M/uL Hgb 12.9 L (14.0-18.0) g/dL Hct 38.1 L (42-52) % MCV 96.2 (80-100) fL MCH 32.6 (25-34) pg MCHC 33.9 (32-36) g/dL RDW Std Deviation 44.6 (36.4-46.3) fL RDW Coeff of Tri 12.7 (11.5-14.5) % Plt Count 212 (130-400) K/uL MPV 9.0 (7.4-10.4) fL Immature Gran % (Auto) 0.3 % Neut % (Auto) 74.4 % Lymph % (Auto) 15.6 % Chambers % (Auto) 9.6 % Eos % (Auto) 0.0 % Baso % (Auto) 0.1 % Neut # (Auto) 8.50 H (1.4-6.5) K/uL Lymph # (Auto) 1.78 (1.2-3.4) K/uL Chambers # (Auto) 1.09 H (0.11-0.59) K/uL Eos # (Auto) 0.00 (0-0.5) K/uL Baso # (Auto) 0.01 (0-0.2) K/uL Immature Gran # (Auto) 0.03 H (0.00-0.02) K/uL PT (9.0-12.0) Seconds INR (0.9-1.1) APTT (21.0-31.0) Seconds PTT Ratio Sodium 139 (136-145) mmol/L Potassium 4.7 D (3.5-5.1) mmol/L Chloride 108 H (98-107) mmol/L Carbon Dioxide 26 (21-32) mmol/L Anion Gap 5.0 (3-11) BUN 21 H (7-18) mg/dl Creatinine 1.02 (0.6-1.4) mg/dl Est Cr Clr Drug Dosing 48.6 ml/min Est GFR ( Amer) 75.7 ml/min Est GFR (Non-Af Amer) 65.3 ml/min BUN/Creatinine Ratio 20.8 H (10-20) Glucose 124 H (70-99) mg/dl Calcium 8.6 (8.5-10.1) mg/dl Magnesium (1.8-2.4) mg/dl Total Bilirubin 0.7 (0.2-1) mg/dl AST 21 (15-37) U/L ALT 18 (12-78) U/L Alkaline Phosphatase 83 (45-117) U/L Total Protein 6.3 L (6.4-8.2) gm/dl Albumin 3.2 L (3.4-5.0) gm/dl Globulin 3.1 (2.5-4.0) gm/dl Albumin/Globulin Ratio 1.0 (0.9-2) TSH (0.300-4.500) uIu/ml Specimen Hemolysis Urine Color Dark Yellow Urine Appearance Clear (Clear) Urine pH 5.5 (4.5-7.5) Ur Specific [place] 1.028 (1.000-1.030) Urine Protein Trace H (Negative) Urine Glucose (UA) Negative (Negative) Urine Ketones 1+ H (Negative) Urine Blood Negative (Negative) Urine Nitrite Negative (Negative) Urine Bilirubin Negative (Negative) Urine Urobilinogen Negative (Negative) Ur Leukocyte Esterase Negative (Negative) Urine WBC (Auto) 5-10 H (0-5) /hpf Urine RBC (Auto) 0-4 (0-4) /hpf U Hyaline Cast (Auto) 1-5 (0-5) /lpf U Epithel Cells (Auto) 10-20 H (0-5) /lpf Urine Bacteria (Auto) Negative (Negative) Ur Renal Epithelial Cell Not Reportable Urine Mucus Present A (None Prsent) COVID-19 Eval Order SARS-CoV-2 (PCR) (Negative) Blood Type Antibody Screen 09/17/20 09/17/20 09/17/20 Range/Units 22:28 19:42 19:42 WBC (4.8-10.8) K/uL RBC (4.7-6.1) M/uL Hgb (14.0-18.0) g/dL Hct (42-52) % MCV (80-100) fL MCH (25-34) pg MCHC (32-36) g/dL RDW Std Deviation (36.4-46.3) fL RDW Coeff of Tri (11.5-14.5) % Plt Count (130-400) K/uL MPV (7.4-10.4) fL Immature Gran % (Auto) % Neut % (Auto) % Lymph % (Auto) % Chambers % (Auto) % Eos % (Auto) % Baso % (Auto) % Neut # (Auto) (1.4-6.5) K/uL Lymph # (Auto) (1.2-3.4) K/uL Chambers # (Auto) (0.11-0.59) K/uL Eos # (Auto) (0-0.5) K/uL Baso # (Auto) (0-0.2) K/uL Immature Gran # (Auto) (0.00-0.02) K/uL PT (9.0-12.0) Seconds INR (0.9-1.1) APTT (21.0-31.0) Seconds PTT Ratio Sodium (136-145) mmol/L Potassium (3.5-5.1) mmol/L Chloride (98-107) mmol/L Carbon Dioxide (21-32) mmol/L Anion Gap (3-11) BUN (7-18) mg/dl Creatinine (0.6-1.4) mg/dl Est Cr Clr Drug Dosing ml/min Est GFR ( Amer) ml/min Est GFR (Non-Af Amer) ml/min BUN/Creatinine Ratio (10-20) Glucose (70-99) mg/dl Calcium (8.5-10.1) mg/dl Magnesium (1.8-2.4) mg/dl Total Bilirubin (0.2-1) mg/dl AST (15-37) U/L ALT (12-78) U/L Alkaline Phosphatase (45-117) U/L Total Protein (6.4-8.2) gm/dl Albumin (3.4-5.0) gm/dl Globulin (2.5-4.0) gm/dl Albumin/Globulin Ratio (0.9-2) TSH (0.300-4.500) uIu/ml Specimen Hemolysis Urine Color Urine Appearance (Clear) Urine pH (4.5-7.5) Ur Specific [place] (1.000-1.030) Urine Protein (Negative) Urine Glucose (UA) (Negative) Urine Ketones (Negative) Urine Blood (Negative) Urine Nitrite (Negative) Urine Bilirubin (Negative) Urine Urobilinogen (Negative) Ur Leukocyte Esterase (Negative) Urine WBC (Auto) (0-5) /hpf Urine RBC (Auto) (0-4) /hpf U Hyaline Cast (Auto) (0-5) /lpf U Epithel Cells (Auto) (0-5) /lpf Urine Bacteria (Auto) (Negative) Ur Renal Epithelial Cell Urine Mucus (None Prsent) COVID-19 Eval Order Covid19 at [facility] SARS-CoV-2 (PCR) NEGATIVE (Negative) Blood Type O Positive Antibody Screen NEGATIVE 09/17/20 09/17/20 09/17/20 Range/Units 18:15 18:15 18:15 WBC 8.33 (4.8-10.8) K/uL RBC 4.61 L (4.7-6.1) M/uL Hgb 15.2 (14.0-18.0) g/dL Hct 44.3 (42-52) % MCV 96.1 (80-100) fL MCH 33.0 (25-34) pg MCHC 34.3 (32-36) g/dL RDW Std Deviation 43.9 (36.4-46.3) fL RDW Coeff of Tri 12.5 (11.5-14.5) % Plt Count 221 (130-400) K/uL MPV 9.0 (7.4-10.4) fL Immature Gran % (Auto) 0.1 % Neut % (Auto) 53.0 % Lymph % (Auto) 35.9 % Chambers % (Auto) 9.1 % Eos % (Auto) 1.7 % Baso % (Auto) 0.2 % Neut # (Auto) 4.41 (1.4-6.5) K/uL Lymph # (Auto) 2.99 (1.2-3.4) K/uL Chambers # (Auto) 0.76 H (0.11-0.59) K/uL Eos # (Auto) 0.14 (0-0.5) K/uL Baso # (Auto) 0.02 (0-0.2) K/uL Immature Gran # (Auto) 0.01 (0.00-0.02) K/uL PT 9.4 (9.0-12.0) Seconds INR 0.9 (0.9-1.1) APTT 24.2 (21.0-31.0) Seconds PTT Ratio 0.9 Sodium 139 (136-145) mmol/L Potassium 4.0 (3.5-5.1) mmol/L Chloride 108 H (98-107) mmol/L Carbon Dioxide 24 (21-32) mmol/L Anion Gap 7.0 (3-11) BUN 20 H (7-18) mg/dl Creatinine 1.15 (0.6-1.4) mg/dl Est Cr Clr Drug Dosing 45.8 ml/min Est GFR ( Amer) 65.5 ml/min Est GFR (Non-Af Amer) 56.5 ml/min BUN/Creatinine Ratio 17.4 (10-20) Glucose 98 (70-99) mg/dl Calcium 9.4 (8.5-10.1) mg/dl Magnesium 2.1 (1.8-2.4) mg/dl Total Bilirubin 0.3 (0.2-1) mg/dl AST 24 (15-37) U/L ALT 22 (12-78) U/L Alkaline Phosphatase 116 (45-117) U/L Total Protein 7.7 (6.4-8.2) gm/dl Albumin 3.7 (3.4-5.0) gm/dl Globulin 4.0 (2.5-4.0) gm/dl Albumin/Globulin Ratio 0.9 (0.9-2) TSH 3.300 (0.300-4.500) uIu/ml Specimen Hemolysis Urine Color Urine Appearance (Clear) Urine pH (4.5-7.5) Ur Specific [place] (1.000-1.030) Urine Protein (Negative) Urine Glucose (UA) (Negative) Urine Ketones (Negative) Urine Blood (Negative) Urine Nitrite (Negative) Urine Bilirubin (Negative) Urine Urobilinogen (Negative) Ur Leukocyte Esterase (Negative) Urine WBC (Auto) (0-5) /hpf Urine RBC (Auto) (0-4) /hpf U Hyaline Cast (Auto) (0-5) /lpf U Epithel Cells (Auto) (0-5) /lpf Urine Bacteria (Auto) (Negative) Ur Renal Epithelial Cell Urine Mucus (None Prsent) COVID-19 Eval Order SARS-CoV-2 (PCR) (Negative) Blood Type Antibody Screen Diagnostic Findings Hip/Pelvis X-Ray 09/17/20 18:16 XR hip LT 2V w pelvis HISTORY: 89 years-old Male left hip pain, fall acute left hip pain status post fall COMPARISON: CT abdomen and pelvis 02/18/2007 TECHNIQUE: AP view of the pelvis with 2 views of the left hip FINDINGS: Mild to moderate osteoarthritis of the there is an acute comminuted intertrochanteric fracture of the left femur with mild impaction and mild apex superior lateral angulation. The greater trochanteric fracture fragment is displaced laterally 2.5 cm. The lesser trochanteric fracture fragment is displaced a few millimeters medially. Moderate adjacent soft tissue swelling. IMPRESSION: Acute comminuted intertrochanteric fracture of the left femur with mild impaction, angulation and displacement. ACT 112: Negative or not required by law. The above report was generated using voice recognition software. It may contain grammatical, syntax or spelling errors. Electronically signed by: Samuel Wayne M.D. 09/17/2020 6:50 PM Chest X-Ray 09/17/20 18:17 XR chest 1V portable HISTORY: 89 years-old Male fall acute chest trauma status post fall COMPARISON: Acute abdominal series radiographs 02/18/2007 TECHNIQUE: Portable supine AP view of the chest FINDINGS: Cardiomediastinal and hilar silhouettes are within normal limits. Unchanged blunting of the left costophrenic angle. Unchanged calcified granuloma of the left lung base. Degenerative changes of the shoulders and spine. Hiatal hernia. IMPRESSION: No acute process. ACT 112: Negative or not required by law. The above report was generated using voice recognition software. It may contain grammatical, syntax or spelling errors. Electronically signed by: Samuel Wayne M.D. 09/17/2020 6:[address] 09/17/20 18:41 CT cervical spine wo con CLINICAL HISTORY: 89 years-old Male with fall. Acute neck pain status post fall COMPARISON: Head CT of same day TECHNIQUE: Multiple axial CT images of the cervical spine were obtained without contrast. A dose lowering technique was utilized adhering to the principles of ALARA. FINDINGS: Severe degeneration at C1-C2. Mild multilevel intervertebral disc space narrowing with moderate spondylitic spurring and moderate to severe facet arthrosis. No acute fracture or subluxation. No endplate erosions. Evaluation of the central canal and neuroforamina is better assessed by MRI. Multilevel neural foraminal narrowing is noted. Mastoid air cells are clear. Pleural parenchymal scarring of the lung apices. No prevertebral edema. Calcified plaque of the carotid bulbs. IMPRESSION: No acute fracture or subluxation. ACT 112: Negative or not required by law. The above report was generated using voice recognition software. It may contain grammatical, syntax or spelling errors. Electronically signed by: Samuel Wayne M.D. 09/17/2020 7:[address] 09/17/20 18:41 CT head/brain wo con CLINICAL HISTORY: 89 years-old Male with fall. Acute head and neck injury status post fall TECHNIQUE: Multiple axial CT images of the head were obtained without contrast. A dose lowering technique was utilized adhering to the principles of ALARA. CT DOSE: 994.22 mGy.cm COMPARISON: CT cervical spine of same day FINDINGS: Motion degraded exam. No acute intracranial hemorrhage, midline shift, intracranial mass, hydrocephalus, territorial ischemia or abnormal extra-axial collection. Age-related involutional changes. White matter hypodensities suggestive of chronic microvascular ischemic disease. Cerebral vascular calcifications. The calvarium is intact. Prior bilateral lens repair. The paranasal sinuses, mastoid air cells, and middle ear cavities are clear. IMPRESSION: No acute intracranial abnormality. ACT 112: Negative or not required by law. The above report was generated using voice recognition software. It may contain grammatical, syntax or spelling errors. Electronically signed by: Samuel Wayne M.D. 09/17/2020 7:46 PM Abdomen/Pelvis CT 09/17/20 19:[address] WITHOUT CONTRAST CT DOSE: 270.56 mGy.cm HISTORY: Acute generalized abdominal pain status post fall fall TECHNIQUE: Multiaxial CT images of the abdomen and pelvis were performed without contrast. A dose lowering technique was utilized adhering to the principles of ALARA. COMPARISON STUDY: CT abdomen pelvis 02/18/2007. FINDINGS: Trace left pleural effusion. There is associated pleural thickening, new from 2006. Mild left lung base atelectasis/scarring. The right lung base is clear. No pneumatosis or pneumoperitoneum. Coronary artery calcifications. The unenhanced spleen, pancreas and adrenal glands are unremarkable. Cholecystec lee. Unremarkable liver. Mild nonspecific bilateral perinephric stranding. No hydronephrosis. Prostamegaly. Unremarkable urinary bladder. Calcified plaque the abdominal aorta without aneurysm. No adenopathy. Small to moderate hiatal hernia. Moderate sized diverticulum involves the third portion the duodenum. No bowel obstruction or bowel wall thickening. Colonic diverticulosis. No CT evidence of acute diverticulitis. Small fat and small bowel-containing right inguinal hernia without obstruction. There is an acute comminuted mildly displaced, impacted and related fracture of the left intertr ochanteric femur. Mild deep tissue edema. Demineralized appearance of the bones. Chronic appearing left-sided rib fractures. IMPRESSION: 1. Acute mildly impacted, comminuted, displaced and angulated intratrochanteric fracture of the left femur. 2. No acute intra-abdominal or intrapelvic abnormality. 3. Trace left pleural effusion with left lung base pleural thickening. 4. Small to moderate hiatal hernia. 5. Small fat and small bowel containing right inguinal hernia. No bowel obstruction. 6. Additional findings as above. ACT 112: Negative or not required by law. The above report was generated using voice recognition software. It may contain grammatical, syntax or spelling errors. Electronically signed by: Samuel Wayne M.D. 09/17/2020 8:13 PM PG Care Time/CCT Total # of Minutes Spent Total Time Spent with Patient: Total time spent is greater than 50% in coordination of care (as documented) at patient's floor/unit and/or counseling patient: Coding Level of Care Code 71794 Subseq Hosp Care Lvl 2 Diagnoses Closed left hip fracture S72.002A Fall W19.XXXA Encounter type: initial encounter Hyperlipidemia E78.5 GERD (gastroesophageal reflux disease) K21.9 Insomnia G47.00 Closed head injury S09.90XA Encounter type: initial encounter (1) Closed head injury Encounter type: initial encounter Qualified Code(s): S09.90XA - Unspecified injury of head, initial encounter (2) Fall Encounter type: initial encounter Qualified Code(s): W19.XXXA - Unspecified fall, initial encounter
[2020-09-18] MEDS: LACTATED RINGER'S 1,000 ML IV SCH ×2 (09:44→22:12)
[2020-09-18] MEDS ORDERED: SUCCINYLCHOLINE CHLORIDE 20 MG/ML 10 ML VIAL IV ONE (12:15)
[2020-09-18] MEDS ORDERED: DEXAMETHASONE SOD INJ 4 MG/ML VIAL ONE (12:15)
[2020-09-18] MEDS ORDERED: ONDANSETRON INJ 2 MG/ML 2 ML VIAL ONE (12:15)
[2020-09-18] MEDS ORDERED: fentaNYL citrate 100 MCG/2 ML VIAL ONE ×3 (12:15→17:28)
[2020-09-18] MEDS ORDERED: PROPOFOL IV EMULSION 10 MG/ML 20 ML VIAL IV ONE (12:15)
[2020-09-18 13:09] LABS: Lyme Ab IgG w/WB Rflx Negative (Negative); Lyme Ab IgM w/WB Rflx Negative (Negative)
--- NOTE | 2020-09-18 14:46 | Anesthesiology Consultation ---
Date of Service September 18, 2020 Assessment & Plan Chart Review Chart Review: Acceptable Risk for Surgery and Patient NOT seen in Pre Admission Testing Consults Requested none ASA ASA4 Proposed Anesthesia Anesthesia Type: General History Surgery Operation Date: 09/18/20 08:40 Proposed Procedures p Left Long Troch Nail - Vlad Lujan MD Height/Weight Height: 5 ft 10 in Weight: 68.7 kg Allergies Allergy/AdvReac Type Severity Reaction Status Date / Time No Known Allergies Allergy Mild Verified 09/18/20 14:38 Medications Home Medications Medication Instructions Recorded Confirmed Last Taken acetaminophen 500 mg tablet 1,000 mg PO Q6H PRN MDD 4g 09/17/20 09/17/20 Unknown aspirin 81 mg tablet,delayed 81 mg PO DAILY 09/17/20 09/17/20 09/17/20 08:00 release (Aspirin Low Dose) atorvastatin 20 mg tablet 20 mg PO DAILY 09/17/20 09/17/20 09/17/20 08:00 cholecalciferol (vitamin D3) 25 25 mcg PO DAILY 09/17/20 09/17/20 09/17/20 08:00 mcg (1,000 unit) tablet (Vitamin D3) docusate sodium 100 mg capsule 100 mg PO BID 09/17/20 09/17/20 09/17/20 08:00 famotidine 20 mg tablet 20 mg PO BID 09/17/20 09/17/20 09/17/20 08:00 melatonin 1 mg tablet 1 mg PO HS 09/17/20 09/17/20 09/16/20 18:00 Active Medications Generic Name Dose Route Start Last Admin Trade Name Yris PRN Reason Stop Dose Admin Lactated Ringer's 1,000 mls @ 80 mls/hr 09/17/20 22:13 09/18/20 09:44 Lr IV 10/17/20 22:12 80 mls/hr .[id number] PAULA Administration Famotidine 20 mg/ Syringe 5 mls @ 2.5 mls/min 09/18/20 04:00 09/18/20 03:48 IV 10/18/20 03:59 2.5 mls/min BID PAULA Administration Senna/Docusate Sodium 2 tab 09/17/20 22:13 09/17/20 22:49 Docusate Sodium/Senna 50/8.6mg Tab PO 10/17/20 22:12 2 tab HS PAULA Administration NPO Date Last Intake of Fluids: 09/18/20 Time Last Intake of Fluids: 00:00 Date Last Intake of Solids: 09/18/20 Time Last Intake of Solids: 23:00 Past Medical History Medical History Anemia GERD (gastroesophageal reflux disease) Hyperlipidemia Insomnia Exercise / Class Metabolic Activity III < 4 Walking/Shop/Light housework Past Anesthesia History No Hx of Anesthesia Complications and No Family Hx of Anesthesia Complications History of PONV No Hx of PONV and No Hx of Motion Sickness Social History Smoking Status: Never smoker Hx Alcohol Use: No Hx Substance Use: No Physical Exam Vital Signs Last Vital Signs Temp 37.0 C 09/18/20 07:24 Pulse 113 H 09/18/20 07:24 Resp 16 09/18/20 07:24 BP 128/71 09/18/20 07:24 Pulse Ox 95 09/18/20 07:24 Testing Laboratory Results 09/18/20 06:04 09/18/20 06:04 PT 9.4 Seconds (9.0-12.0) 09/17/20 18:15 INR 0.9 (0.9-1.1) 09/17/20 18:15 APTT 24.2 Seconds (21.0-31.0) 09/17/20 18:15 Urine Color Dark Yellow 09/18/20 Unknown Urine Appearance Clear (Clear) 09/18/20 Unknown Urine pH 5.5 (4.5-7.5) 09/18/20 Unknown Ur Specific [place] 1.028 (1.000-1.030) 09/18/20 Unknown Urine Protein Trace (Negative) H 09/18/20 Unknown Urine Glucose (UA) Negative (Negative) 09/18/20 Unknown Urine Ketones 1+ (Negative) H 09/18/20 Unknown Urine Nitrite Negative (Negative) 09/18/20 Unknown Ur Leukocyte Esterase Negative (Negative) 09/18/20 Unknown Urine WBC (Auto) 5-10 /hpf (0-5) H 09/18/20 Unknown Urine RBC (Auto) 0-4 /hpf (0-4) 09/18/20 Unknown U Hyaline Cast (Auto) 1-5 /lpf (0-5) 09/18/20 Unknown U Epithel Cells (Auto) 10-20 /lpf (0-5) H 09/18/20 Unknown Urine Bacteria (Auto) Negative (Negative) 09/18/20 Unknown Blood Type O Positive 09/17/20 22:28 Antibody Screen NEGATIVE 09/17/20 22:28 Electrocardiogram Date: 09/18/20 Findings: + NSST changes and + ST @ (at 110) Chest X-Ray Date: 09/17/20 Findings: + NAD Other Testing carotid U/S(10/26/2020)no H/D sig. stenosis;minimal atherosclerotic plaque
[2020-09-18] MEDS ORDERED: BUPIVACAINE/EPINEPHRINE 0.5% MPF 1:200,000 30 ML VIAL ONE ×2 (15:08→17:07)
[2020-09-18] MEDS ORDERED: ceFAZolin 2000MG 2,000 MG/15 ML SYR IV ONE (15:12)
[2020-09-18] MEDS ORDERED: ceFAZolin 2,000 MG/15 ML IV PUSH IV ONE (15:15)
--- NOTE | 2020-09-18 15:18 | History & Physical Bridge Note ---
Date of Service September 18, 2020 History & Physical Bridge Note I have examined the patient, reviewed the History & Physical and in the interval since the performance of the History & Physical I have noted the following changes of clinical significance: no changes noted. Patient is aware of COVID-19 risks. Patient is asymptomatic for COVID-19. Patient has been tested for COVID-19 - [NEGATIVE].
[2020-09-18] MEDS ORDERED: ePHEDrine sulfate 50 MG/ML AMP IV PRN (15:28)
[2020-09-18] MEDS ORDERED: ONDANSETRON INJ 2 MG/ML 2 ML VIAL IV PRN (15:28)
[2020-09-18] MEDS ORDERED: HYDROmorphone INJ 1 MG/ML SYRINGE IV PRN (15:28)
[2020-09-18] MEDS ORDERED: fentaNYL citrate 100 MCG/2 ML VIAL IV PRN (15:28)
[2020-09-18] MEDS ORDERED: ATROPINE SULFATE 0.1 MG/ML 10ML SYR IV PRN (15:28)
[2020-09-18] MEDS ORDERED: ROCURONIUM BROMIDE 10 MG/ML 5 ML VIAL IV ONE (16:19)
[2020-09-18] MEDS ORDERED: NEOSTIGMINE METHYLSULFATE 1 MG/ML 10ML VIAL ONE (16:19)
[2020-09-18] MEDS ORDERED: GLYCOPYRROLATE 0.2 MG/ML VIAL ONE (16:19)
--- NOTE | 2020-09-18 17:40 | Operative Report ---
PG Post Operative Report Pre & Post Diagnosis Operation Date: 09/18/20 08:40 Pre-Op Diagnosis: Closed left hip fracture Post-Op Diagnosis: Closed left peritrochanteric hip fracture I identified the patient and participated in the time-out.: Yes Procedure Operation Date: 09/18/20 08:40 Actual Procedures p Left Hip Fracture Closed Reduction Internal Fixation with long cephalomedullary nail (Left) - Vlad Lujan MD Surgeon Vlad Lujan MD Physician Practice Consultant Roman Mederos Estimated Blood Loss 100 Findings See Below All Synthes implants: 11 mm/130 degree titanium cannulated trochanteric fixation nail of 400 mm length. 11.0 mm titanium helical blade of 95 mm length. Distal interlock screw measuring 50 mm. Specimens none Anesthesia Type General Complications none Disposition Accompanied Patient To Recovery: No Disposition: Recovery Room Indications 89-year-old male sustained fall down at [facility] resulting immediate pain in his left hip and inability bear weight. Examined radiographs demonstrate a peritrochanteric hip fracture. Power of attorney law clerk was contacted and our recommendation was for surgical stabilization. Informed consent was obtained in the preop area. Description of Procedure On the day of surgery should be was greeted in the preoperative holding area and the informed consent was reviewed and confirmed. The surgical site was then identified by the patient and signed by myself. The patient was taken to the operating placed by the OR table and anesthesia was induced. The patient is then positioned on the fracture table. All fior prominences were well padded. The operative foot was placed in the fracture boot with abundant padding. The well leg was secured. We then positioned the lower extremities in a scissor fashion with a non-op leg flexed down to allow visualization with fluoroscopy which was confirmed before we prepped and draped. Surgical timeout was called and verified by all present. Antibiotics were infused, and equipment was available and functional. The procedure was initiated with a closed reduction maneuvers. Gentle in-line traction pulled the fracture out to length. The limb was then internally rotated to reduce the proximal femur. Flexion and adduction were used to adjust the reduction and allow access to the greater trochanter. We had adequate reduction prior to prepping and draping. The leg was then prepped and draped in usual sterile fashion. Surgical timeout was reconfirmed. We initiated the surgical internal fixation portion with finding the start point with the tip of the greater trochanter. Fluoroscopic guidance was used and a small poke hole was established. The start point was confirmed on fluoroscopy in AP and lateral planes and the pin was advanced using a mallet. An incision was made about the pin to allow access for the reamers. The pin was then advanced past the lesser trochanter, and its position was co nfirmed using AP and lateral fluoroscopy. Using the protective sleeve, the [opening reamer] was advanced under power with fluoroscopic guidance over the guidepin. It was advanced slowly and we did ream out some lateral bone of the trochanter. The reduction wire was then advanced down the distal femur to the level of the superior pole of the patella. Measurement was taken from the tip of the trochanter down to the end of the guidewire, and the [nail length] was selected. We then began sequential reaming. We used a 12.5 mm reamer based on his initial canal measurement. An [11] mm nail was loaded onto the jig and advanced manually down the canal, while ensuring maintenance of the reduction on fluoroscopy. We then tapped it down into place until we achieve the good position for our cephalo-medullary screw. The cannula was placed on the jig to allow positioning of the cephalo-medullary screw. The skin incision was made in the appropriate spot. The jig cannulas were then placed against the lateral cortex. The cephalo-medullary screw guidepin was advanced towards the femoral head. The center-center position was confirmed on fluoroscopy in AP and lateral planes. The length of the screw was measured off the guide. The helical blade screw was then opened on the back table and prepared on the screwdriver. The lateral cortical opening drill, followed by the triple drill reamer for the helical blade was advanced under fluoroscopic guidance. The helical blade was advanced over the guidepin to appropriate position. The helical blade was locked in rotation and then the traction was taken off. Fluoroscopy confirmed maintenance of reduction and adequate position of the implant. [The compression sleeve was then advanced against the lateral femur to improve the trochanteric-shaft reduction and compress the intertrochanteric region fracture.] [Attention was then directed distally to perform the interlock screws in using perfect lower sioux technique. 1 interlock screw was placed with a 5 mm diameter. The length was measured using a depth gauge, with fluoroscopic guidance. This completed the fixation.] This completed the fixation of the fracture. Fluoroscopy was used in both AP and lateral planes to evaluate the entirety of the fracture and implant. Reduction and implant positions were acceptable. The wounds were then thoroughly irrigated with bulb syringe and normal saline. The deep fascial layer was approximated with 0 Vicryl suture. The dermal layer was approximated using 2-0 Vicryl suture. The final skin closure was completed with magalis. Wounds were dressed with sterile Xeroform, sterile gauze, and [foam tape] over ABDs. The patient tolerated procedure well, awoke from anesthesia without complication, was extubated in the operating room, and transferred to the PACU in stable condition. Disposition: The patient be weightbearing as tolerated. I recommended routine DVT prophylaxis consisting of low molecular weight heparin while an inpatient and transition to oral [aspirin], if tolerable, as the patient transitions out of the hospital. DVT prophylaxis should last 6 weeks. 24 hours of antibiotic prophylaxis should be continued. Physician assistant grocery store manager attestation: Jose Mederos PA-C was present and scrubbed for the duration of the case. He was essential to prepping/draping, patient positioning, retraction, and assistance with wound closure. I attest to the content of the Intraoperative Record and any orders documented therein. Any exceptions are noted below.
--- NOTE | 2020-09-18 18:03 | Fluoroscopy Report ---
FL hip LT 2-3V CLINICAL HISTORY: LT LONG TROCH NAIL. Left hip internal fixation COMPARISON STUDY: None. FLUOROSCOPY TIME: 1 minute and 42 seconds. FINDINGS: 5 fluoroscopic spot images of the left hip demonstrate a left femoral intramedullary emory wi thin interlocking femoral neck pin traversing the femoral fracture. The alignment is near-anatomic. T he hardware appears intact. IMPRESSION: Fluoroscopy provided for internal fixation of a left femoral fracture. ACT 112: Negative or not required by law. Electronically signed by: Haroon Escalante M.D. 09/18/2020 6:01 PM
[2020-09-18] MEDS ORDERED: NALOXONE HCL 0.4 MG/1 ML VIAL/CARP IV PRN (18:08)
[2020-09-18] MEDS ORDERED: LABETALOL HCL IV 5 MG/ML 20ML IV ONE (18:22)
[2020-09-18] MEDS ORDERED: LABETALOL HCL IV 5 MG/ML 20ML IV PRN (18:24)
--- NOTE | 2020-09-18 18:29 | XRay Report ---
XR femur LT 2V routine CLINICAL HISTORY: Post-Operative implant position. Left femur fracture. COMPARISON STUDY: Pelvis and left hip 09/17/2020. FINDINGS: Status post internal fixation of the left femoral intertrochanteric fracture with intramedu llary emory and interlocking femoral neck pin. The hardware appears intact. There is improved anatomic alignment. Skin magalis are in place. IMPRESSION: Status post internal fixation of a left femoral intertrochanteric fracture. The hardware appears intact. ACT 112: Negative or not required by law. Electronically signed by: Haroon Escalante M.D. 09/18/2020 6:27 PM
--- NOTE | 2020-09-18 18:45 | Anesthesiology Progress Note ---
Date of Service September 18, 2020 Anesthesia Post Procedure Vital Signs Vital Signs: Temp Pulse Pulse Pulse Resp BP BP 09/18/20 18:30 93 H 21 123/87 09/18/20 18:20 117 H 20 151/87 H 09/18/20 18:10 120 H 18 162/87 H 09/18/20 18:00 111 H 21 146/99 H 09/18/20 17:50 114 H 21 168/112 H 09/18/20 17:42 37.6 C H 115 H 20 150/109 H 09/18/20 14:39 36.5 C 103 H 20 150/69 H 09/18/20 07:24 37.0 C 113 H 16 128/71 09/17/20 22:13 37.3 C 112 H 30 H 176/93 H 09/17/20 21:30 112 H 37 H 156/87 H 09/17/20 21:00 115 H 31 H 161/99 H 09/17/20 20:30 118 H 23 141/116 H 09/17/20 20:00 107 H 37 H 163/92 H 09/17/20 19:00 97 H 29 H 174/100 H Pulse Ox 09/18/20 18:30 100 09/18/20 18:20 98 09/18/20 18:10 98 09/18/20 18:00 100 09/18/20 17:50 100 09/18/20 17:42 100 09/18/20 14:39 98 09/18/20 07:24 95 09/17/20 22:13 97 09/17/20 21:30 98 09/17/20 21:00 99 09/17/20 20:30 99 09/17/20 20:00 100 09/17/20 19:00 95 Pain Intensity Left Hip: Pain Intensity: 4 Transfer of Care Handoff Completed per policy Notes Mental Status: alert / awake / arousable and participated in evaluation Patient Amnestic to Procedure: Yes Nausea / Vomiting: adequately controlled Pain: adequately controlled Airway Patency, RR, SpO2: stable & adequate BP & HR: stable & adequate Hydration State: stable & adequate Anesthetic Complications: no major complications apparent and Pt Satisfied with anesthetic care Notes: Pt back to preoperative mental status in PACU.
--- NOTE | 2020-09-18 19:25 | Electrocardiogram Report ---
Test Reason : Blood Pressure : / mmHG Vent. Rate : 110 BPM Atrial Rate : 110 BPM P-R Int : 174 ms QRS Dur : 068 ms QT Int : 330 ms P-R-T Axes : 063 043 062 degrees QTc Int : 446 ms Sinus tachycardia Diffuse Minor Nonspecific ST abnormality Abnormal ECG When compared with ECG of 17-SEP-2020 18:44, No pauses Confirmed by Mitesh Monterroso ([id number]) on 09/18/2020 7:25:38 PM Referred By: REFERRED SELF Confirmed By:Mitesh Monterroso
[2020-09-18] MEDS: ENOXAPARIN INJ 40 MG/0.4 ML SYR SQ SCH (21:21)
[2020-09-18] MEDS: MELATONIN 3 MG TAB PO SCH (21:21)
[2020-09-18] MEDS: DOCUSATE SODIUM/SENNA 50/8.6MG TAB PO SCH (21:22)
[2020-09-18] MEDS: DOCUSATE SODIUM 100 MG CAP PO SCH (21:22)
[2020-09-18] MEDS: HYDROmorphone INJ 0.5 MG/0.5 ML SYR IV PRN (21:23)
[2020-09-18] MEDS: ceFAZolin 2000MG 2,000 MG/15 ML SYR IV SCH (23:45)
[2020-09-19] MEDS: HYDROmorphone INJ 0.5 MG/0.5 ML SYR IV PRN ×2 (00:03→07:19)
[2020-09-19] MEDS ORDERED: amLODIPine BESYLATE 5 MG TAB PO ONE (06:26)
[2020-09-19] MEDS: LACTATED RINGER'S 1,000 ML IV SCH (07:20)
[2020-09-19] MEDS: ceFAZolin 2000MG 2,000 MG/15 ML SYR IV SCH (07:28)
[2020-09-19] MEDS: FAMOTIDINE 20 MG in SYRINGE 3 ML IV SCH (07:28)
[2020-09-19] MEDS: ASPIRIN 81 MG ECTAB PO SCH (07:38)
[2020-09-19] MEDS: CHOLECALCIFEROL 1,000 UNITS 25 MCG TAB PO SCH (07:38)
[2020-09-19] MEDS: ATORVASTATIN 20 MG TAB PO SCH (07:39)
[2020-09-19] MEDS: DOCUSATE SODIUM 100 MG CAP PO SCH ×2 (07:39→20:04)
[2020-09-19 08:05] LABS: Basophils # (auto) 0.01 K/uL (0-0.2); Basophils % (auto) 0.1 %; Hematocrit (blood only) 28.7 % (42-52); Hemoglobin 9.6 g/dL (14.0-18.0); Immature Granulocytes # (auto) 0.04 K/uL (0.00-0.02); Immature Granulocytes % (auto) 0.2 %; Lymphocytes % (auto) 8.8 %; Mean Corpuscular Hemoglobin 32.4 pg (25-34); Mean Corpuscular Hgb Conc 33.4 g/dL (32-36); Mean Platelet Volume 8.8 fL (7.4-10.4); Monocytes # (auto) 1.71 K/uL (0.11-0.59); Neutrophils # (auto) 13.85 K/uL (1.4-6.5); Neutrophils % (auto) 80.9 %; Platelet Count 197 K/uL (130-400); RDW Coefficient of Variation 12.9 % (11.5-14.5); RDW Standard Deviation 45.4 fL (36.4-46.3); Red Blood Count 2.96 M/uL (4.7-6.1); White Blood Count 17.11 K/uL (4.8-10.8)
[2020-09-19 08:10] LABS: Albumin Level 2.6 gm/dl (3.4-5.0); BUN Creatinine Ratio 18.8 (10-20); Calcium 8.1 mg/dl (8.5-10.1); Creatinine Clr Calc Pharmacy 55.7 ml/min; Est GFR (African American) 88.5 ml/min; Est GFR (Non-African American) 76.3 ml/min; Potassium 4.5 mmol/L (3.5-5.1)
[2020-09-19 08:13] LABS: Albumin Globulin Ratio 0.9 (0.9-2); Bilirubin,Total 0.7 mg/dl (0.2-1); Globulin 2.9 gm/dl (2.5-4.0); Total Protein 5.5 gm/dl (6.4-8.2)
--- NOTE | 2020-09-19 08:46 | Hospitalist Progress Note ---
Date of Service September 19, 2020 Assessment & Plan (1) Closed left hip fracture: Plan: Mechanical fall. CXR without acute process. UA without evidence of infection POD# 1 Left Hip Fracture Closed Reduction Internal Fixation with long cephalomedullary nail (Left) - Vlad Lujan MD EBL 100cc H/h 15 on admission, dropped to 12 prior to surgery (dilutional and acute blood loss from fx) Post-op hgb dropped to 9.6 -- of note, patient with large amount of blood in be d from dressing this morning and this could have contributed. Minimal hematoma to L thigh -- elevate/ice/monitor No further IVF Repeat CBC in AM or sooner if symptoms-- denied CP/SOB Low dose CBB for what appears to be chronic sinus tach, but will obtain ECHO to ensure to valvular issues. Can continue if remains tachycardic. Not hypotensive, no shortness of breath. No hypoxia to suggest PE Avoiding further Dilaudid, utilize PO pain medications when appropriate Eating/drinking -- No further IVF Encouraged use of incentive spirometer -- has been utilizing today (was 90% on RA this morning) WBC up but did get dexamethasone operatively, afebrile Pain control -- attempt to utilize more PO. Will d/c IV Dilaudid Bowel regimen --> senna, docusate. added miralax, dulcolax pr if needed. Can give dose of mag citrate if needed PT/OT evals pending DVT proph while inpatient with Lovenox, then can transition to ASA at discharge for at least 6 weeks Of note, patient from memory unit at [facility]. Niesha Riggins POA [id number] [phone] cell, home Updated evening 09/18 post-operatively (2) Fall: Plan: Status post mechanical fall with closed head injury CT head negative. No focal deficit. Some confusion as to where he is --> frequent reorientation Can add seroquel or other if needed for ing -->from [facility] memory care (3) Hyperlipidemia: Plan: Atorvastatin 20 mg daily resumed (4) GERD (gastroesophageal reflux disease): Plan: Change famotidine to IV as noted --> will change back to PO today (5) Insomnia: Plan: Melatonin 1 mg p.o. at bedtime as needed (6) Closed head injury: Plan: CT of head and cervical spine negative Some confusion regarding where he is at but quickly reoriented --> CT head negative on admission. Chronic microvascular changes. Continue ASA 81mg daily --> plans for BID at d/c for DVT proph for 6 weeks as above Plan: Dispo: continued inpatient stay Patient resident from [facility]. CM following. PT/OT thang pending Admission and Anticipated Discharge Date Admission Date: September 17, 2020 Subjective Patient evaluated this afternoon. Pain controlled. With some confusion on location but discussed room change -- he states he thought he had a dream he was facing the other direction yesterday and states "thank you for clarifying". He knows he had surgery on his hip but can't recall the actual events. Per RN, when patient being turned in bed this morning, large amount of blood from dressing on bed. Dressing changed and re-enforced and looks good. Ate breakfast without issues and has even been using his incentive spirometer. Was up in chair. Passing gas but no BM. Adding miralax. Dulcolax pr available as well and can also add other medications. No fever, chills chest pain shortness of breath, abdominal pain (although feels bloated), nausea, vomiting at this time. Physical Exam Physical Exam: The patient is awake, alert and oriented to person (at times, not oriented to place/time during encounter but from [facility]), well developed and well nourished, normocephalic and atraumatic, lying in bed and in no acute distress. HEENT--PERRL, EOMI, mucous membranes and oropharynx slightly dry. Neck--supple. No JVD. No bruits. Thyroid normal, trachea midline, no adenopathy. Heart--tachycardic (110bpm), normal S1 and S2. No murmurs, rubs or gallops. Lungs--clear bilaterally, no respiratory distress, no accessory muscle use. Abdomen--+BS, slightly hypoactive, distended, non-tender. no hernias or masses, no organomegaly. Extremities--no cyanosis or clubbing. No edema. There are good distal pulses B/L dressing to L hip c/d/i. tender to palpation. Dermatologic--normal skin turgor, normal color Neurologic--cranial nerves II through XII grossly intact. Urologic-- morris catheter draining yellow urine Rheumatologic--normal range of motion. Psychiatric--alert and oriented to person only, normal affect. Results & Data Results & Data ([facility]) Vital Signs (Past 12 Hours) Vital Signs Temp Pulse Resp BP Pulse Ox Pulse Ox 09/19/20 06:53 36.7 C 118 H 16 112/68 90 09/19/20 06:00 93 09/19/20 05:03 113 H 18 93 09/19/20 03:48 37.0 C 131 H 20 117/66 94 09/18/20 23:52 36.9 C 117 H 18 128/73 96 09/18/20 22:00 95 09/18/20 21:32 36.8 C 107 H 18 115/74 99 Laboratory Results 09/19/20 09/19/20 09/18/20 Range/Units 06:58 06:58 18:07 WBC 17.11 H (4.8-10.8) K/uL RBC 2.96 L (4.7-6.1) M/uL Hgb 9.6 L D (14.0-18.0) g/dL Hct 28.7 L (42-52) % MCV 97.0 (80-100) fL MCH 32.4 (25-34) pg MCHC 33.4 (32-36) g/dL RDW Std Deviation 45.4 (36.4-46.3) fL RDW Coeff of Tri 12.9 (11.5-14.5) % Plt Count 197 (130-400) K/uL MPV 8.8 (7.4-10.4) fL Immature Gran % (Auto) 0.2 % Neut % (Auto) 80.9 % Lymph % (Auto) 8.8 % [place] % (Auto) 10.0 % Eos % (Auto) 0.0 % Baso % (Auto) 0.1 % Neut # (Auto) 13.85 H (1.4-6.5) K/uL Lymph # (Auto) 1.50 (1.2-3.4) K/uL [place] # (Auto) 1.71 H (0.11-0.59) K/uL Eos # (Auto) 0.00 (0-0.5) K/uL Baso # (Auto) 0.01 (0-0.2) K/uL Immature Gran # (Auto) 0.04 H (0.00-0.02) K/uL Sodium 139 (136-145) mmol/L Potassium 4.5 (3.5-5.1) mmol/L Chloride 108 H (98-107) mmol/L Carbon Dioxide 27 (21-32) mmol/L Anion Gap 4.0 (3-11) BUN 17 (7-18) mg/dl Creatinine 0.89 (0.6-1.4) mg/dl Est Cr Clr Drug Dosing 55.7 ml/min Est GFR ( Amer) 88.5 ml/min Est GFR (Non-Af Amer) 76.3 ml/min BUN/Creatinine Ratio 18.8 (10-20) Glucose 106 H (70-99) mg/dl Calcium 8.1 L (8.5-10.1) mg/dl Total Bilirubin 0.7 (0.2-1) mg/dl AST 49 H (15-37) U/L ALT 18 (12-78) U/L Alkaline Phosphatase 60 (45-117) U/L Troponin I < 0.015 (0-0.045) ng/ml Total Protein 5.5 L (6.4-8.2) gm/dl Albumin 2.6 L (3.4-5.0) gm/dl Globulin 2.9 (2.5-4.0) gm/dl Albumin/Globulin Ratio 0.9 (0.9-2) Lyme Disease IgG Ab (Negative) Lyme Disease IgM Ab (Negative) 09/18/20 09/18/20 Range/Units 11:44 06:04 WBC (4.8-10.8) K/uL RBC (4.7-6.1) M/uL Hgb (14.0-18.0) g/dL Hct (42-52) % MCV (80-100) fL MCH (25-34) pg MCHC (32-36) g/dL RDW Std Deviation (36.4-46.3) fL RDW Coeff of Tri (11.5-14.5) % Plt Count (130-400) K/uL MPV (7.4-10.4) fL Immature Gran % (Auto) % Neut % (Auto) % Lymph % (Auto) % [place] % (Auto) % Eos % (Auto) % Baso % (Auto) % Neut # (Auto) (1.4-6.5) K/uL Lymph # (Auto) (1.2-3.4) K/uL [place] # (Auto) (0.11-0.59) K/uL Eos # (Auto) (0-0.5) K/uL Baso # (Auto) (0-0.2) K/uL Immature Gran # (Auto) (0.00-0.02) K/uL Sodium (136-145) mmol/L Potassium (3.5-5.1) mmol/L Chloride (98-107) mmol/L Carbon Dioxide (21-32) mmol/L Anion Gap (3-11) BUN (7-18) mg/dl Creatinine (0.6-1.4) mg/dl Est Cr Clr Drug Dosing ml/min Est GFR ( Amer) ml/min Est GFR (Non-Af Amer) ml/min BUN/Creatinine Ratio (10-20) Glucose (70-99) mg/dl Calcium (8.5-10.1) mg/dl Total Bilirubin (0.2-1) mg/dl AST (15-37) U/L ALT (12-78) U/L Alkaline Phosphatase (45-117) U/L Troponin I 0.035 (0-0.045) ng/ml Total Protein (6.4-8.2) gm/dl Albumin (3.4-5.0) gm/dl Globulin (2.5-4.0) gm/dl Albumin/Globulin Ratio (0.9-2) Lyme Disease IgG Ab Negative (Negative) Lyme Disease IgM Ab Negative (Negative) Diagnostic Findings Hip X-Ray 09/18/20 14:30 FL hip LT 2-3V CLINICAL HISTORY: LT LONG TROCH NAIL. Left hip internal fixation COMPARISON STUDY: None. FLUOROSCOPY TIME: 1 minute and 42 seconds. FINDINGS: 5 fluoroscopic spot images of the left hip demonstrate a left femoral intramedullary emory within interlocking femoral neck pin traversing the femoral fracture. The alignment is near-anatomic. The hardware appears intact. IMPRESSION: Fluoroscopy provided for internal fixation of a left femoral fracture. ACT 112: Negative or not required by law. Electronically signed by: Haroon Escalante M.D. 09/18/2020 6:01 PM Femur X-Ray 09/18/20 17:52 XR femur LT 2V routine CLINICAL HISTORY: Post-Operative implant position. Left femur fracture. COMPARISON STUDY: Pelvis and left hip 09/17/2020. FINDINGS: Status post internal fixation of the left femoral intertrochanteric fr acture with intramedullary emory and interlocking femoral neck pin. The hardware appears intact. There is improved anatomic alignment. Skin magalis are in place. IMPRESSION: Status post internal fixation of a left femoral intertrochanteric fracture. The hardware appears intact. ACT 112: Negative or not required by law. Electronically signed by: Haroon Escalante M.D. 09/18/2020 6:27 PM Chest X-Ray 09/19/20 08:44 XR chest 1V portable HISTORY: 89 years-old Male leukocytosis, assess volume overload acute shortness breath with volume overload COMPARISON: Chest radiograph 09/17/2020 TECHNIQUE: Portable AP view of the chest FINDINGS: The cardiac silhouette is upper limits of normal in size, unchanged. Unchanged small left pleural effusion. Calcified granuloma of the left lung base again noted. Mild chronic interstitial coarsening. No pneumothorax or overt pulmonary edema. No airspace consolidation typical for pneumonia. Degenerative changes of the shoulders and spine. Hiatal hernia. IMPRESSION: No acute process. ACT 112: Negative or not required by law. The above report was generated using voice recognition software. It may contain grammatical, syntax or spelling errors. Electronically signed by: Samuel Wayne M.D. 09/19/2020 10:14 AM PG Care Time/CCT Total # of Minutes Spent Total Time Spent with Patient: Total time spent is greater than 50% in coordination of care (as documented) at patient's floor/unit and/or counseling patient: Coding Level of Care Code 32355 Subseq Hosp Care Lvl 3 Diagnoses Closed left hip fracture S72.002A Fall W19.XXXA Encounter type: initial encounter Hyperlipidemia E78.5 GERD (gastroesophageal reflux disease) K21.9 Insomnia G47.00 Closed head injury S09.90XA Encounter type: initial encounter (1) Fall Encounter type: initial encounter Qualified Code(s): W19.XXXA - Unspecified fall, initial encounter (2) Closed head injury Encounter type: initial encounter Qualified Code(s): S09.90XA - Unspecified injury of head, initial encounter
[2020-09-19 10:08] LABS: C Reactive Protein 11.3 mg/dl (0-0.29); Ferritin 138.8 ng/ml (8-388)
--- NOTE | 2020-09-19 10:15 | XRay Report ---
XR chest 1V portable HISTORY: 89 years-old Male leukocytosis, assess volume overload acute shortness breath with volume o verload COMPARISON: Chest radiograph 09/17/2020 TECHNIQUE: Portable AP view of the chest FINDINGS: The cardiac silhouette is upper limits of normal in size, unchanged. Unchanged small left pleural eff usion. Calcified granuloma of the left lung base again noted. Mild chronic interstitial coarsening. N o pneumothorax or overt pulmonary edema. No airspace consolidation typical for pneumonia. Degenerativ e changes of the shoulders and spine. Hiatal hernia. IMPRESSION: No acute process. ACT 112: Negative or not required by law. The above report was generated using voice recognition software. It may contain grammatical, syntax o r spelling errors. Electronically signed by: Samuel Wayne M.D. 09/19/2020 10:14 AM
[2020-09-19 10:34] LABS: Folate (Folic Acid) 7.2 ng/ml (>5.38)
[2020-09-19] MEDS: POLYETHYLENE (MIRALAX) 17 GM PACK PO SCH (13:28)
[2020-09-19] MEDS: HYDROCODONE/ACETAMOPHEN 5/325MG TAB PO PRN (13:29)
[2020-09-19] MEDS ORDERED: IRON SUCROSE 300 MG in SODIUM CHLORIDE 0.9% 250 ML IV ONE (13:30)
[2020-09-19] MEDS ORDERED: ACETAMINOPHEN 325 MG TAB PO PRN (15:27)
[2020-09-19 16:24] LABS: Appearance Urine Clear (Clear); Bacteria Urine Automated Negative (Negative); Bilirubin Urine Negative (Negative); Blood Urine 2+ (Negative); Color Urine Orange; Epithelial Cell Urine Auto 20-30 /lpf (0-5); Glucose Urine UA Negative (Negative); Ketones Urine Trace (Negative); Leukocyte Esterase Urine 1+ (Negative); Nitrite Urine Negative (Negative); Protein Urine 1+ (Negative); Specific Gravity Urine 1.036 (1.000-1.030); Urobilinogen Urine Negative (Negative); pH Urine 5.5 (4.5-7.5)
[2020-09-19 16:25] LABS: Hematocrit (blood only) 27.4 % (42-52); Hemoglobin 9.1 g/dL (14.0-18.0); Mean Corpuscular Hemoglobin 32.5 pg (25-34); Mean Corpuscular Hgb Conc 33.2 g/dL (32-36); Mean Corpuscular Volume 97.9 fL (80-100); Mean Platelet Volume 8.8 fL (7.4-10.4); Platelet Count 193 K/uL (130-400); RDW Coefficient of Variation 12.8 % (11.5-14.5); White Blood Count 15.06 K/uL (4.8-10.8)
[2020-09-19 16:36] LABS: Mucus Urine Present (None Prsent)
[2020-09-19] MEDS ORDERED: CYANOCOBALAMIN 30 MCG in SYRINGE 0.97 ML IM ONE (16:44)
[2020-09-19] MEDS ORDERED: SODIUM CHLORIDE 0.9% 1000ML 1,000 ML IV SCH (16:45)
--- NOTE | 2020-09-19 16:51 | XCELERA ---
[id number]
[2020-09-19] MEDS: cefTRIAXone SODIUM 1,000 MG in DEXTROSE 5% 50 ML IV SCH (17:46)
[2020-09-19] MEDS ORDERED: CYANOCOBALAMIN 1000 MCG/ML VIAL IM ONE (19:00)
[2020-09-19] MEDS: FAMOTIDINE 20 MG TAB PO SCH (20:03)
[2020-09-19] MEDS: DOCUSATE SODIUM/SENNA 50/8.6MG TAB PO SCH (20:04)
[2020-09-19] MEDS: ENOXAPARIN INJ 40 MG/0.4 ML SYR SQ SCH (20:04)
[2020-09-19] MEDS: MELATONIN 3 MG TAB PO SCH (20:04)
[2020-09-20] MEDS ORDERED: MAGNESIUM CITRATE 296 ML/BTL PO STA (07:29)
[2020-09-20] MEDS: POLYETHYLENE (MIRALAX) 17 GM PACK PO SCH (07:36)
[2020-09-20] MEDS: ASPIRIN 81 MG ECTAB PO SCH (07:38)
[2020-09-20 07:39] LABS: Basophils # (auto) 0.01 K/uL (0-0.2); Basophils % (auto) 0.1 %; Eosinophils # (auto) 0.04 K/uL (0-0.5); Eosinophils % (auto) 0.4 %; Hemoglobin 8.8 g/dL (14.0-18.0); Immature Granulocytes # (auto) 0.05 K/uL (0.00-0.02); Immature Granulocytes % (auto) 0.5 %; Lymphocytes # (auto) 1.34 K/uL (1.2-3.4); Lymphocytes % (auto) 12.9 %; Mean Corpuscular Hemoglobin 31.9 pg (25-34); Mean Corpuscular Hgb Conc 32.6 g/dL (32-36); Mean Corpuscular Volume 97.8 fL (80-100); Mean Platelet Volume 8.9 fL (7.4-10.4); Monocytes # (auto) 1.25 K/uL (0.11-0.59); Neutrophils # (auto) 7.71 K/uL (1.4-6.5); Neutrophils % (auto) 74.1 %; Platelet Count 194 K/uL (130-400); RDW Standard Deviation 46.7 fL (36.4-46.3); Red Blood Count 2.76 M/uL (4.7-6.1)
[2020-09-20] MEDS: CHOLECALCIFEROL 1,000 UNITS 25 MCG TAB PO SCH (07:39)
[2020-09-20] MEDS: ATORVASTATIN 20 MG TAB PO SCH (07:39)
[2020-09-20] MEDS: FAMOTIDINE 20 MG TAB PO SCH ×2 (07:39→20:00)
[2020-09-20] MEDS: CYANOCOBALAMIN 500 MCG TABLET (VITAMIN B-12) PO SCH (07:39)
[2020-09-20] MEDS ORDERED: IRON SUCROSE 300 MG in SODIUM CHLORIDE 0.9% 250 ML IV ONE (08:00)
[2020-09-20 08:01] LABS: Albumin Level 2.4 gm/dl (3.4-5.0); BUN Creatinine Ratio 20.6 (10-20); Calcium 8.1 mg/dl (8.5-10.1); Creatinine Clr Calc Pharmacy 59.1 ml/min; Est GFR (African American) 90.6 ml/min; Est GFR (Non-African American) 78.2 ml/min; Potassium 4.3 mmol/L (3.5-5.1)
[2020-09-20 08:04] LABS: Albumin Globulin Ratio 0.8 (0.9-2); Bilirubin,Total 0.6 mg/dl (0.2-1); Globulin 3.2 gm/dl (2.5-4.0); Total Protein 5.6 gm/dl (6.4-8.2)
[2020-09-20] MEDS: DOCUSATE SODIUM 100 MG CAP PO SCH ×2 (08:07→20:00)
--- NOTE | 2020-09-20 08:50 | Hospitalist Progress Note ---
Date of Service September 20, 2020 Assessment & Plan (1) Closed left hip fracture: Plan: Mechanical fall. CXR without acute process. UA without evidence of infection POD# 2 Left Hip Fracture Closed Reduction Internal Fixation with long cephalomedullary nail (Left) - Vlad Lujan MD EBL 100cc H/h 15 on admission (but suspect some hemoconcentration), was 12 prior to surgery (dilutional and acute blood loss from fx) hgb dropped to 8.8 today -- acute blood loss anemia from surgery, but had gotten 1L IVF for some dehydration so some dilutional effect. of note, patient with large amount of blood in bed from dressing morning of 09/19 and this morning dressing completely saturated. decreased this afternoon denied CP/SOb but is tachycardic. Got 2 doses IV Venofer for low iron and will repeat in AM. Also with low B12 levels and given IM on 09/19 and continued on ora ls Eating/drinking Hypoactive BS this afternoon with urinary retention. KUB obtained with moderate stool -- got Miralax/milk of mag/mag citrate this AM and asked RN to give [place] dulcolax. Of note, does have possible post-op ileus. No pain on exam but is distended -- if symptoms would make NPO and allow bowel rest. Ambulation with 2 person assist and attempting again this afternoon Started on Rocephin 09/19 for pus around Morris inserted pre-op. Culture pending but would treat given improvement in cognition although suspect some aspect of delirium compounded in patient with dementia. (Of note, pt received abx operative period and cx may be negative) Morris was discontinued. Patient has required st cath x 1. Bladder scan this afternoon and repeat if needed. [facility] and looking at other options DVT proph with Lovenox and plans for ASA at discharge for at least 6 weeks Of note, patient from memory unit at [facility]. Niesha BLACK [id number] [phone] cell, home Updated evening 09/18 post-operatively (2) Urinary retention: Plan: likely secondary to constipation/possible UTI as above Bladder scan St cath if >200cc Working on bowel regimen Rocephin as above and monitor Urine c/s - see above (3) Constipation: Plan: No BM since admission Hypoactive BS Bowel regimen -- got MOM, Miralax, senna. Mag citrate today KUB obtained -- moderate stool. notes possible post-op ileus Patient non-tender but distended. Hypoactive BS. Will have RN administer [place] dulcolax If developed n/v/abd pain, make NPO/bowel rest and repeat KUB in AM (4) Acute blood loss anemia: Plan: see above per ortho, nailing with signif bleeding -- also with bleeding in bed yesterday and saturated dressing today has gotten IVF so suspect some dilutional, however did check iron stores which were low (2nd dose Venofer today and repeat again tomorrow) B12 also low normal -- given IM yesterday and continued on oral supplementation CBC in AM (5) Fall: Plan: Status post mechanical fall with closed head injury CT head negative. No focal deficit. Some confusion as to where he is --> frequent reorientation- - IMPROVED Can add seroquel or other if needed for -->from [facility] care (6) Hyperlipidemia: Plan: Atorvastatin 20 mg daily (7) GERD (gastroesophageal reflux disease): Plan: PPI (8) Insomnia: Plan: Melatonin 1 mg p.o. at bedtime as needed (9) Closed head injury: Plan: CT of head and cervical spine negative Some confusion regarding where he is at but quickly reoriented --> CT head negative on admission. Chronic microvascular changes. Continue ASA 81mg daily --> plans for BID at d/c for DVT proph for 6 weeks as above Plan: Dispo: continued inpatient stay PT/OT thang -- Patient unable to return to [facility] (from Memory Unit) and looking at other SNF for rehab prior to return to [facility]. CM following. Admission and Anticipated Discharge Date Admission Date: September 17, 2020 Subjective Patient evaluated this morning. Much more alert and oriented today. Difficulty with the year but ultimately stated 2019 but stated month August/. Pain controlled with ordered medications. Dressing changed at bedside with nursing -- blood soaked dressing but no expressible drainage on examination. Had not voided since morris removed and was st cath for ~600cc urine. Condom cath placed. Thigh warm but not erythematous. Denied fever, chills, chest pain, shortness of breath, palpitations, abdominal pain, nausea or vomiting. Passing gas but no BM yet -- working on bowel regimen currently. Review of Systems Review of Systems: All systems reviewed & are unremarkable except as noted in HPI & below Physical Exam Physical Exam: The patient is awake, alert and oriented to person (at time, did know in hospital, that he had surgery, year incorrect 2019 but did state August as month -- from [facility]), well developed and well nourished, normocephalic and atraumatic, lying in bed and in no acute distress. HEENT--PERRL, EOMI, mucous membranes and oropharynx slightly moist. Neck--supple. No JVD. No bruits. Thyroid normal, trachea midline, no adenopathy. Heart--tachycardic (102bpm), normal S1 and S2. No murmurs, rubs or gallops. Lungs--clear bilaterally, no respiratory distress, no accessory muscle use. Abdomen--+BS, slightly hypoactive, distended, non-tender. no hernias or masses, no organomegaly. Extremities--no cyanosis or clubbing. Edema to left thigh from surgery as expec elan, saturated dressing (removed by nursing during encounter). magalis intact. no surrounding erythema or purulent drainage. There are good distal pulses B/L. NVI Dermatologic--normal skin turgor, normal color Neurologic--cranial nerves II through XII grossly intact. Urologic--condom cath without urine Rheumatologic--normal range of motion. Psychiatric--alert and oriented to person only, normal affect. Results & Data Results & Data ([facility]) Vital Signs (Past 12 Hours) Vital Signs Temp Pulse Pulse Resp BP Pulse Ox 09/20/20 07:08 36.9 C 117 H 18 115/73 95 09/19/20 23:13 36.9 C 112 H 18 122/69 97 Laboratory Results 09/20/20 09/20/20 09/19/20 Range/Units 06:53 06:53 Unknown WBC 10.40 (4.8-10.8) K/uL RBC 2.76 L (4.7-6.1) M/uL Hgb 8.8 L (14.0-18.0) g/dL Hct 27.0 L (42-52) % MCV 97.8 (80-100) fL MCH 31.9 (25-34) pg MCHC 32.6 (32-36) g/dL RDW Std Deviation 46.7 H (36.4-46.3) fL RDW Coeff of Tri 13.0 (11.5-14.5) % Plt Count 194 (130-400) K/uL MPV 8.9 (7.4-10.4) fL Immature Gran % (Auto) 0.5 % Neut % (Auto) 74.1 % Lymph % (Auto) 12.9 % [place] % (Auto) 12.0 % Eos % (Auto) 0.4 % Baso % (Auto) 0.1 % Neut # (Auto) 7.71 H (1.4-6.5) K/uL Lymph # (Auto) 1.34 (1.2-3.4) K/uL [place] # (Auto) 1.25 H (0.11-0.59) K/uL Eos # (Auto) 0.04 (0-0.5) K/uL Baso # (Auto) 0.01 (0-0.2) K/uL Immature Gran # (Auto) 0.05 H (0.00-0.02) K/uL ESR (0-20) mm/hr Sodium 139 (136-145) mmol/L Potassium 4.3 (3.5-5.1) mmol/L Chloride 107 (98-107) mmol/L Carbon Dioxide 27 (21-32) mmol/L Anion Gap 4.0 (3-11) BUN 17 (7-18) mg/dl Creatinine 0.84 (0.6-1.4) mg/dl Est Cr Clr Drug Dosing 59.1 ml/min Est GFR ( Amer) 90.6 ml/min Est GFR (Non-Af Amer) 78.2 ml/min BUN/Creatinine Ratio 20.6 H (10-20) Glucose 96 (70-99) mg/dl POC Glucose (70-99) mg/dl Calcium 8.1 L (8.5-10.1) mg/dl Iron (35-175) mcg/dl TIBC (250-450) mcg/dl Transferrin (200-360) mg/dl Transferrin % Sat (20-50) % Ferritin (8-388) ng/ml Total Bilirubin 0.6 (0.2-1) mg/dl AST 68 H (15-37) U/L ALT 20 (12-78) U/L Alkaline Phosphatase 60 (45-117) U/L C-Reactive Protein (0-0.29) mg/dl Total Protein 5.6 L (6.4-8.2) gm/dl Albumin 2.4 L (3.4-5.0) gm/dl Globulin 3.2 (2.5-4.0) gm/dl Albumin/Globulin Ratio 0.8 L (0.9-2) Vitamin B12 (193-986) pg/ml Folate (>5.38) ng/ml Urine Color Knott Urine Appearance Clear (Clear) Urine pH 5.5 (4.5-7.5) Ur Specific [place] 1.036 H (1.000-1.030) Urine Protein 1+ H (Negative) Urine Glucose (UA) Negative (Negative) Urine Ketones Trace H (Negative) Urine Blood 2+ H (Negative) Urine Nitrite Negative (Negative) Urine Bilirubin Negative (Negative) Urine Urobilinogen Negative (Negative) Ur Leukocyte Esterase 1+ H (Negative) Urine WBC (Auto) 10-30 H (0-5) /hpf Urine RBC (Auto) 5-10 H (0-4) /hpf U Hyaline Cast (Auto) 10-30 H (0-5) /lpf U Epithel Cells (Auto) 20-30 H (0-5) /lpf Urine Bacteria (Auto) Negative (Negative) Urine Mucus Present A (None Prsent) Urine Yeast Not Reportable 09/19/20 09/19/20 09/19/20 Range/Units 20:26 16:58 15:54 WBC 15.06 H (4.8-10.8) K/uL RBC 2.80 L (4.7-6.1) M/uL Hgb 9.1 L (14.0-18.0) g/dL Hct 27.4 L (42-52) % MCV 97.9 (80-100) fL MCH 32.5 (25-34) pg MCHC 33.2 (32-36) g/dL RDW Std Deviation 46.0 (36.4-46.3) fL RDW Coeff of Tri 12.8 (11.5-14.5) % Plt Count 193 (130-400) K/uL MPV 8.8 (7.4-10.4) fL Immature Gran % (Auto) % Neut % (Auto) % Lymph % (Auto) % [place] % (Auto) % Eos % (Auto) % Baso % (Auto) % Neut # (Auto) (1.4-6.5) K/uL Lymph # (Auto) (1.2-3.4) K/uL [place] # (Auto) (0.11-0.59) K/uL Eos # (Auto) (0-0.5) K/uL Baso # (Auto) (0-0.2) K/uL Immature Gran # (Auto) (0.00-0.02) K/uL ESR (0-20) mm/hr Sodium (136-145) mmol/L Potassium (3.5-5.1) mmol/L Chloride (98-107) mmol/L Carbon Dioxide (21-32) mmol/L Anion Gap (3-11) BUN (7-18) mg/dl Creatinine (0.6-1.4) mg/dl Est Cr Clr Drug Dosing ml/min Est GFR ( Amer) ml/min Est GFR (Non-Af Amer) ml/min BUN/Creatinine Ratio (10-20) Glucose (70-99) mg/dl POC Glucose 113 H 117 H (70-99) mg/dl Calcium (8.5-10.1) mg/dl Iron (35-175) mcg/dl TIBC (250-450) mcg/dl Transferrin (200-360) mg/dl Transferrin % Sat (20-50) % Ferritin (8-388) ng/ml Total Bilirubin (0.2-1) mg/dl AST (15-37) U/L ALT (12-78) U/L Alkaline Phosphatase (45-117) U/L C-Reactive Protein (0-0.29) mg/dl Total Protein (6.4-8.2) gm/dl Albumin (3.4-5.0) gm/dl Globulin (2.5-4.0) gm/dl Albumin/Globulin Ratio (0.9-2) Vitamin B12 (193-986) pg/ml Folate (>5.38) ng/ml Urine Color Urine Appearance (Clear) Urine pH (4.5-7.5) Ur Specific [place] (1.000-1.030) Urine Protein (Negative) Urine Glucose (UA) (Negative) Urine Ketones (Negative) Urine Blood (Negative) Urine Nitrite (Negative) Urine Bilirubin (Negative) Urine Urobilinogen (Negative) Ur Leukocyte Esterase (Negative) Urine WBC (Auto) (0-5) /hpf Urine RBC (Auto) (0-4) /hpf U Hyaline Cast (Auto) (0-5) /lpf U Epithel Cells (Auto) (0-5) /lpf Urine Bacteria (Auto) (Negative) Urine Mucus (None Prsent) Urine Yeast 09/19/20 09/19/20 09/19/20 Range/Units 08:55 08:55 08:49 WBC (4.8-10.8) K/uL RBC (4.7-6.1) M/uL Hgb (14.0-18.0) g/dL Hct (42-52) % MCV (80-100) fL MCH (25-34) pg MCHC (32-36) g/dL RDW Std Deviation (36.4-46.3) fL RDW Coeff of Tri (11.5-14.5) % Plt Count (130-400) K/uL MPV (7.4-10.4) fL Immature Gran % (Auto) % Neut % (Auto) % Lymph % (Auto) % [place] % (Auto) % Eos % (Auto) % Baso % (Auto) % Neut # (Auto) (1.4-6.5) K/uL Lymph # (Auto) (1.2-3.4) K/uL [place] # (Auto) (0.11-0.59) K/uL Eos # (Auto) (0-0.5) K/uL Baso # (Auto) (0-0.2) K/uL Immature Gran # (Auto) (0.00-0.02) K/uL ESR 18 (0-20) mm/hr Sodium (136-145) mmol/L Potassium (3.5-5.1) mmol/L Chloride (98-107) mmol/L Carbon Dioxide (21-32) mmol/L Anion Gap (3-11) BUN (7-18) mg/dl Creatinine (0.6-1.4) mg/dl Est Cr Clr Drug Dosing ml/min Est GFR ( Amer) ml/min Est GFR (Non-Af Amer) ml/min BUN/Creatinine Ratio (10-20) Glucose (70-99) mg/dl POC Glucose (70-99) mg/dl Calcium (8.5-10.1) mg/dl Iron 20 L (35-175) mcg/dl TIBC 181 L (250-450) mcg/dl Transferrin 141 L (200-360) mg/dl Transferrin % Sat 10 L (20-50) % Ferritin 138.8 (8-388) ng/ml Total Bilirubin (0.2-1) mg/dl AST (15-37) U/L ALT (12-78) U/L Alkaline Phosphatase (45-117) U/L C-Reactive Protein 11.30 H (0-0.29) mg/dl Total Protein (6.4-8.2) gm/dl Albumin (3.4-5.0) gm/dl Globulin (2.5-4.0) gm/dl Albumin/Globulin Ratio (0.9-2) Vitamin B12 255 (193-986) pg/ml Folate 7.20 (>5.38) ng/ml Urine Color Urine Appearance (Clear) Urine pH (4.5-7.5) Ur Specific [place] (1.000-1.030) Urine Protein (Negative) Urine Glucose (UA) (Negative) Urine Ketones (Negative) Urine Blood (Negative) Urine Nitrite (Negative) Urine Bilirubin (Negative) Urine Urobilinogen (Negative) Ur Leukocyte Esterase (Negative) Urine WBC (Auto) (0-5) /hpf Urine RBC (Auto) (0-4) /hpf U Hyaline Cast (Auto) (0-5) /lpf U Epithel Cells (Auto) (0-5) /lpf Urine Bacteria (Auto) (Negative) Urine Mucus (None Prsent) Urine Yeast Diagnostic Findings KUB X-Ray 09/20/20 13:33 KUB HISTORY: constipation COMPARISON: Chest and abdominal series 02/18/2007. Abdomen and pelvis CT 09/17/2020. FINDINGS: Status post internal fixation of a left femoral intertrochanteric fracture. The visualized hardware appears intact. There are skin magalis overlying the left hip. Prior cholecystectomy. No renal or ureteral calculi. No dilated loops of bowel to suggest an obstruction. There is moderate well-formed stool seen within the gas-filled borderline dilated colon measuring up to 6 cm. This could represent a mild ileus. No pneumoperitoneum or pneumatosis. IMPRESSION: 1. Moderate well-formed stool within the colon. The colon is borderline distended and gas-filled raising the possibility of a postoperative ileus. 2. Status post internal fixation of a left femoral intertrochanteric fracture. ACT 112: Negative or not required by law. Electronically signed by: Haroon Escalante M.D. 09/20/2020 3:24 PM PG Care Time/CCT Total # of Minutes Spent Total Time Spent with Patient: Total time spent is greater than 50% in coordination of care (as documented) at patient's floor/unit and/or counseling patient: Coding Level of Care Code 66280 Subseq Hosp Care Lvl 3 Diagnoses Closed left hip fracture S72.002A Fall W19.XXXA Encounter type: initial encounter Hyperlipidemia E78.5 GERD (gastroesophageal reflux disease) K21.9 Insomnia G47.00 Closed head injury S09.90XA Encounter type: initial encounter Urinary retention R33.9 Constipation K59.00 Acute blood loss anemia D62 (1) Fall Encounter type: initial encounter Qualified Code(s): W19.XXXA - Unspecified fall, initial encounter (2) Closed head injury Encounter type: initial encounter Qualified Code(s): S09.90XA - Unspecified injury of head, initial encounter
--- NOTE | 2020-09-20 09:06 | Orthopedic Progress Note ---
Date of Service September 20, 2020 Assessment & Plan (1) Closed left hip fracture: p Left Hip Fracture Closed Reduction Internal Fixation with long cephalomedullary nail (Left) - Vlad Lujan MD -Doing well post operatively. -Continue PT/OT. WBAT to LLE w/ crutches or walker. -DVT ppx w/ Lovenox while inpatient, transition to ASA as outpatient for 6 weeks. -Hgb slightly down trending, likely dilutional/equilibrating at this point. Asymptomatic from anemia standpoint. Continue IV iron sucrose. -Completed 24 hr post op abx -Consult discharge planning for inpatient rehab placement. Subjective Doing well this morning. Minimal pain. Denies any additional symptoms. Review of Systems All systems reviewed & are unremarkable except as noted in HPI & below. Physical Exam General: Pleasant, elderly male resting in bed in no acute distress LLE: Dressing with some small amount of old blood in superior portion of incision, otherwise clean/dry/intact. No surrounding edema/ecchymosis. Pain w/ PROM of LLE. Distal pulse and sensation intact. Results & Data Results & Data Laboratory Results . Laboratory Tests 09/20/20 09/20/20 06:53 06:53 WBC 10.40 Hgb 8.8 L Hct 27.0 L Plt Count 194 Sodium 139 Potassium 4.3 BUN 17 Creatinine 0.84 Diagnostic Findings Reviewed . PG Care Time/CCT Total # of Minutes Spent Total Time Spent with Patient: Total time spent is greater than 50% in coordination of care (as documented) at patient's floor/unit and/or counseling patient: Coding Level of Care Code 21899 Subseq Hosp Care Lvl 2 Diagnoses Closed left hip fracture S72.002A
[2020-09-20] MEDS: HYDROCODONE/ACETAMOPHEN 5/325MG TAB PO PRN (14:17)
[2020-09-20] MEDS: PANTOprazole 40 MG TAB PO SCH (15:02)
--- NOTE | 2020-09-20 15:26 | XRay Report ---
KUB HISTORY: constipation COMPARISON: Chest and abdominal series 02/18/2007. Abdomen and pelvis CT 09/17/2020. FINDINGS: Status post internal fixation of a left femoral intertrochanteric fracture. The visualized hardware appears intact. There are skin magalis overlying the left hip. Prior cholecystectomy. No re nal or ureteral calculi. No dilated loops of bowel to suggest an obstruction. There is moderate well- formed stool seen within the gas-filled borderline dilated colon measuring up to 6 cm. This could rep resent a mild ileus. No pneumoperitoneum or pneumatosis. IMPRESSION: 1. Moderate well-formed stool within the colon. The colon is borderline distended and gas-filled rais ing the possibility of a postoperative ileus. 2. Status post internal fixation of a left femoral intertrochanteric fracture. ACT 112: Negative or not required by law. Electronically signed by: Haroon Escalante M.D. 09/20/2020 3:24 PM
[2020-09-20] MEDS: cefTRIAXone SODIUM 1,000 MG in DEXTROSE 5% 50 ML IV SCH (17:29)
[2020-09-20] MEDS: ENOXAPARIN INJ 40 MG/0.4 ML SYR SQ SCH (20:00)
[2020-09-20] MEDS: MELATONIN 3 MG TAB PO SCH (20:00)
[2020-09-20] MEDS: DOCUSATE SODIUM/SENNA 50/8.6MG TAB PO SCH (20:00)
[2020-09-21] MEDS ORDERED: IRON SUCROSE 300 MG in SODIUM CHLORIDE 0.9% 250 ML IV ONE (08:00)
[2020-09-21 08:31] LABS: Basophils # (auto) 0.02 K/uL (0-0.2); Basophils % (auto) 0.2 %; Eosinophils # (auto) 0.05 K/uL (0-0.5); Eosinophils % (auto) 0.5 %; Hematocrit (blood only) 25.6 % (42-52); Hemoglobin 8.5 g/dL (14.0-18.0); Immature Granulocytes # (auto) 0.07 K/uL (0.00-0.02); Immature Granulocytes % (auto) 0.7 %; Lymphocytes # (auto) 1.28 K/uL (1.2-3.4); Lymphocytes % (auto) 12.1 %; Mean Corpuscular Hemoglobin 32.3 pg (25-34); Mean Corpuscular Hgb Conc 33.2 g/dL (32-36); Mean Corpuscular Volume 97.3 fL (80-100); Mean Platelet Volume 8.8 fL (7.4-10.4); Monocytes # (auto) 1.24 K/uL (0.11-0.59); Monocytes % (auto) 11.7 %; Neutrophils # (auto) 7.92 K/uL (1.4-6.5); Neutrophils % (auto) 74.8 %; Nucleated RBC # (auto) 0.03 K/uL (0-0); Nucleated RBC % (auto) 0.3 %; Platelet Count 206 K/uL (130-400); RDW Coefficient of Variation 12.9 % (11.5-14.5); RDW Standard Deviation 45.1 fL (36.4-46.3); Red Blood Count 2.63 M/uL (4.7-6.1); White Blood Count 10.58 K/uL (4.8-10.8)
--- NOTE | 2020-09-21 08:46 | Hospitalist Progress Note ---
Date of Service September 21, 2020 Assessment & Plan (1) Closed left hip fracture: Plan: Mechanical fall. CXR without acute process. UA without evidence of infection POD# 2 Left Hip Fracture Closed Reduction Internal Fixation with long cephalomedullary nail (Left) - Vlad Lujan MD EBL 100cc H/h 15 on admission (but suspect some hemoconcentration), was 12 prior to surgery (dilutional and acute blood loss from fx) hgb dropped to 8.5 today -- acute blood loss anemia from surgery, but had gotten 1L IVF for some dehydration so some dilutional effect. (could also be from IV abx, and plans to switch to PO keflex tomorrow as outlined below) of note, patient with large amount of blood in bed from dressing morning of 09/19 and this morning dressing completely saturated. decreased by afternoon and dressing looked good today denied CP/SOb but is tachycardic. Got 2 doses IV Venofer for low iron repeated this morning for 3rd dose. Also with low B12 levels and given IM on 09/19 and continued on orals Bowel regimen --> KUB obtained with moderate stool --> suppository yesterday with small BM and repeated today after repeat KUB with another small BM. Less distended and will continue daily. --> No pain on exam but is distended -- if symptoms would make NPO and allow bowel rest. Ambulation with 2 person assist and attempting again this afternoon Tx for UTI as below WBC wnl, afebrile DVT proph with Lovenox and plans for ASA at discharge for at least 6 weeks (2) Urinary retention: Plan: likely secondary to constipation/possible UTI (Working on bowel regimen -- BM x 2) +Rocephin 09/19 for pus around Llamas inserted pre-op. Culture pending but would treat given improvement in cognition although suspect some aspect of delirium compounded in patient with dementia. (Of note, pt received abx operative period and cx may be negative) Cx with pin-point growth, re-incubating Llamas was discontinued, required st cath x 1. Has been voiding since without need for additional st cath Bladder scan as needed Suspect constipation playing role in retention Will give third dose of Rocephin today and place on keflex to complete 5 days course. (3) Constipation: Plan: No BM since admission prior to 09/20 Hypoactive BS, less today Bowel regimen -- got MOM, Miralax, senna, Mag citrate KUB obtained -- moderate stool, possible ileus Non-tender on exam today, + BS --> BM following fleet enema and will order dulcolax supp tonight and daily If developed n/v/abd pain, make NPO/bowel rest and repeat KUB in AM (4) Acute blood loss anemia: Plan: see above per ortho, nailing with signif bleeding -- also with bleeding in bed yesterday and saturated dressing today has gotten IVF so suspect some dilutional, however did check iron stores which were low --> received 3 doses IV venofer while inpatient B12 also low normal -- given IM x1 and continued on oral supplementation Hgb 8.5 today -- less bleeding, and hopefully levels out and improves over next day or two No need for transfusion just yet but if developed CP/SOB would order 1 unit if needed CBC in AM (5) Fall: Plan: Status post mechanical fall with closed head injury CT head negative. No focal deficit. Some confusion as to where he is --> frequent reorientation- - IMPROVED and appears at baseline per conversation with SHANATL on phone during her visits Can add seroquel or other if needed for -->from [facility] (6) Hyperlipidemia: Plan: Atorvastatin 20 mg daily (7) GERD (gastroesophageal reflux disease): Plan: PPI (8) Insomnia: Plan: Melatonin 1 mg p.o. at bedtime as needed (9) Closed head injury: Plan: CT of head and cervical spine negative Some confusion regarding where he is at but quickly reoriented --> CT head negative on admission. Chronic microvascular changes. Continue ASA 81mg daily --> plans for BID at d/c for DVT proph for 6 weeks as above Plan: Continue to monitor blood counts, bowel regimen. CM following and ref sent to SNF -- likely [place] until [place] [facility] [place] at this [place] due to level of care. also resides in memory unit Niesha BLACK [id number] [phone] cell, home --> Updated evening 09/21 Dispo: continued inpatient stay Admission and Anticipated Discharge Date Admission Date: September 17, 2020 Subjective Patient evaluated this morning. Feeling well. Pain controlled. Difficulty with ambulation and requiring assist of 3. Got enema with small BM this morning and less distention. Making urine without need for st cath. No fever, chills, chest pain, shortness of breath, nausea vomiting, abdominal pain reported. He states he is ready to be back with his (also resident of Memory Unit). Review of Systems Review of Systems: All systems reviewed & are unremarkable except as noted in HPI & below Physical Exam Physical Exam: The patient is awake, alert and oriented to person (at time, did know in hospital, that he had surgery, year incorrect 2019 but did state August as month -- from [facility]), well developed and well nourished, normocephalic and atraumatic, lying in bed and in no acute distress. HEENT--PERRL, EOMI, mucous membranes and oropharynx slightly moist. Neck--supple. No JVD. No bruits. Thyroid normal, trachea midline, no adenopathy. Heart--tachycardic (102bpm), normal S1 and S2. No murmurs, rubs or gallops. Lungs--clear bilaterally, no respiratory distress, no accessory muscle use. Abdomen--+BS, slightly hypoactive but present, distended (less), non-tender. no hernias or masses, no organomegaly. Extremities--no cyanosis or clubbing. Edema to left thigh from surgery as expected (decreased today), dressing c/d/i, more mobile. magalis intact. no surrounding erythema or purulent drainage. There are good distal pulses B/L. NVI Dermatologic--normal skin turgor, normal color Neurologic--cranial nerves II through XII grossly intact Urologic--condom cath without urine Rheumatologic--normal range of motion. Psychiatric--alert and oriented to person only, normal affect Results & Data Results & Data ([facility]) Vital Signs (Past 12 Hours) Vital Signs Temp Pulse Resp BP Pulse Ox 09/21/20 07:30 36.6 C 101 H 18 111/69 97 09/20/20 22:54 36.8 C 83 18 116/60 95 Laboratory Results 09/21/20 09/21/20 Range/Units 07:58 07:58 WBC 10.58 (4.8-10.8) K/uL RBC 2.63 L (4.7-6.1) M/uL Hgb 8.5 L (14.0-18.0) g/dL Hct 25.6 L (42-52) % MCV 97.3 (80-100) fL MCH 32.3 (25-34) pg MCHC 33.2 (32-36) g/dL RDW Std Deviation 45.1 (36.4-46.3) fL RDW Coeff of Tri 12.9 (11.5-14.5) % Plt Count 206 (130-400) K/uL MPV 8.8 (7.4-10.4) fL Immature Gran % (Auto) 0.7 % Neut % (Auto) 74.8 % Lymph % (Auto) 12.1 % Traill % (Auto) 11.7 % Eos % (Auto) 0.5 % Baso % (Auto) 0.2 % Neut # (Auto) 7.92 H (1.4-6.5) K/uL Lymph # (Auto) 1.28 (1.2-3.4) K/uL Traill # (Auto) 1.24 H (0.11-0.59) K/uL Eos # (Auto) 0.05 (0-0.5) K/uL Baso # (Auto) 0.02 (0-0.2) K/uL Immature Gran # (Auto) 0.07 H (0.00-0.02) K/uL Absolute Nucleated RBC 0.03 H (0-0) K/uL Nucleated RBC % (auto) 0.3 % Sodium Pending Potassium Pending Chloride Pending Carbon Dioxide Pending Anion Gap Pending BUN Pending Creatinine Pending Est Cr Clr Drug Dosing Pending Est GFR ( Amer) Pending Est GFR (Non-Af Amer) Pending BUN/Creatinine Ratio Pending Glucose Pending Calcium Pending PG Care Time/CCT Total # of Minutes Spent Total Time Spent with Patient: Total time spent is greater than 50% in coordination of care (as documented) at patient's floor/unit and/or counseling patient: Coding Level of Care Code 76936 Subseq Hosp Care Lvl 3 Diagnoses Closed left hip fracture S72.002A Urinary retention R33.9 Constipation K59.00 Acute blood loss anemia D62 Fall W19.XXXA Encounter type: initial encounter Hyperlipidemia E78.5 GERD (gastroesophageal reflux disease) K21.9 Insomnia G47.00 Closed head injury S09.90XA Encounter type: initial encounter (1) Closed head injury Encounter type: initial encounter Qualified Code(s): S09.90XA - Unspecified injury of head, initial encounter (2) Fall Encounter type: initial encounter Qualified Code(s): W19.XXXA - Unspecified fall, initial encounter
[2020-09-21] MEDS: CYANOCOBALAMIN 500 MCG TABLET (VITAMIN B-12) PO SCH (08:56)
[2020-09-21] MEDS: ATORVASTATIN 20 MG TAB PO SCH (08:57)
[2020-09-21] MEDS: ASPIRIN 81 MG ECTAB PO SCH (08:57)
[2020-09-21] MEDS: FAMOTIDINE 20 MG TAB PO SCH ×2 (08:57→20:08)
[2020-09-21] MEDS: CHOLECALCIFEROL 1,000 UNITS 25 MCG TAB PO SCH (08:58)
[2020-09-21] MEDS: PANTOprazole 40 MG TAB PO SCH (08:58)
[2020-09-21] MEDS: DOCUSATE SODIUM 100 MG CAP PO SCH ×2 (08:58→20:12)
[2020-09-21] MEDS: POLYETHYLENE (MIRALAX) 17 GM PACK PO SCH (08:59)
[2020-09-21 09:11] LABS: BUN Creatinine Ratio 24.5 (10-20); Creatinine Clr Calc Pharmacy 60.5 ml/min; Est GFR (African American) 91.5 ml/min; Potassium 4.4 mmol/L (3.5-5.1)
--- NOTE | 2020-09-21 11:47 | XRay Report ---
KUB HISTORY: Recent hip surgery. f/u constipation COMPARISON: KUB 09/20/2020. FINDINGS: Borderline dilated gas and stool-filled colon remains unchanged. No dilated loops of small bowel identified. Prior cholecystectomy. Left hip postoperative changes are again noted. No renal ca lculi. No ureteral calculi. No pneumoperitoneum or pneumatosis. IMPRESSION: No change in the borderline dilated gas and stool-filled colon. ACT 112: Negative or not required by law. Electronically signed by: Haroon Escalante M.D. 09/21/2020 11:46 AM
[2020-09-21] MEDS ORDERED: SOD PHOSPHATE/SOD BIPHOSPHATE ENEMA 132 ML BTL PR STA (13:00)
--- NOTE | 2020-09-21 17:38 | Orthopedic Progress Note ---
Date of Service September 21, 2020 Assessment & Plan (1) Closed left hip fracture: Postop day 3 s/p left cephalomedullary nail for peritrochanteric fracture. Making expected progress Continue plan of care. Weightbearing as tolerated and range of motion as tolerated, continue gait training VTE prophylaxis per primary team at this point Dispo: Will need orthopedic follow-up in 2-3 weeks for wound check, staple removal, and repeat x-rays. Stable for transition next level of care from an orthopedic perspective. Please contact with further questions Subjective Seen on morning rounds. He denies any new pain or symptoms. Review of Systems All systems reviewed & are unremarkable except as noted in HPI & below. Physical Exam Left lower extremity: Lying supine. Dressing was clean dry and intact from yesterday. Thigh compartments full but soft and minimally tender. No knee effusion. Distally neurovascularly intact. Constitutional WD/WN, vitals as above no acute distress and not intoxicated appearing Respiratory normal respiratory effort; no labored breathing Cardiovascular Extremities: normal capillary refill Results & Data Results & Data Laboratory Results . H & H 09/17/20 09/17/20 09/17/20 Range/Units 18:15 18:15 18:15 WBC 8.33 (4.8-10.8) K/uL RBC 4.61 L (4.7-6.1) M/uL Hgb 15.2 (14.0-18.0) g/dL Hct 44.3 (42-52) % MCV 96.1 (80-100) fL MCH 33.0 (25-34) pg MCHC 34.3 (32-36) g/dL RDW Std Deviation 43.9 (36.4-46.3) fL RDW Coeff of Tri 12.5 (11.5-14.5) % Plt Count 221 (130-400) K/uL MPV 9.0 (7.4-10.4) fL Immature Gran % (Auto) 0.1 % Neut % (Auto) 53.0 % Lymph % (Auto) 35.9 % [place] % (Auto) 9.1 % Eos % (Auto) 1.7 % Baso % (Auto) 0.2 % Neut # (Auto) 4.41 (1.4-6.5) K/uL Lymph # (Auto) 2.99 (1.2-3.4) K/uL [place] # (Auto) 0.76 H (0.11-0.59) K/uL Eos # (Auto) 0.14 (0-0.5) K/uL Baso # (Auto) 0.02 (0-0.2) K/uL Immature Gran # (Auto) 0.01 (0.00-0.02) K/uL Absolute Nucleated RBC (0-0) K/uL Nucleated RBC % (auto) % ESR (0-20) mm/hr PT 9.4 (9.0-12.0) Seconds INR 0.9 (0.9-1.1) APTT 24.2 (21.0-31.0) Seconds PTT Ratio 0.9 Sodium 139 (136-145) mmol/L Potassium 4.0 (3.5-5.1) mmol/L Chloride 108 H (98-107) mmol/L Carbon Dioxide 24 (21-32) mmol/L Anion Gap 7.0 (3-11) BUN 20 H (7-18) mg/dl Creatinine 1.15 (0.6-1.4) mg/dl Est Cr Clr Drug Dosing 45.8 ml/min Est GFR ( Amer) 65.5 ml/min Est GFR (Non-Af Amer) 56.5 ml/min BUN/Creatinine Ratio 17.4 (10-20) Glucose 98 (70-99) mg/dl POC Glucose (70-99) mg/dl Calcium 9.4 (8.5-10.1) mg/dl Magnesium 2.1 (1.8-2.4) mg/dl Iron (35-175) mcg/dl TIBC (250-450) mcg/dl Transferrin (200-360) mg/dl Transferrin % Sat (20-50) % Ferritin (8-388) ng/ml Total Bilirubin 0.3 (0.2-1) mg/dl AST 24 (15-37) U/L ALT 22 (12-78) U/L Alkaline Phosphatase 116 (45-117) U/L Troponin I (0-0.045) ng/ml C-Reactive Protein (0-0.29) mg/dl Total Protein 7.7 (6.4-8.2) gm/dl Albumin 3.7 (3.4-5.0) gm/dl Globulin 4.0 (2.5-4.0) gm/dl Albumin/Globulin Ratio 0.9 (0.9-2) Vitamin B12 (193-986) pg/ml 25-OH Vitamin D Total (30-100) ng/ml Folate (>5.38) ng/ml TSH 3.300 (0.300-4.500) uIu/ml Specimen Hemolysis Urine Color Urine Appearance (Clear) Urine pH (4.5-7.5) Ur Specific [place] (1.000-1.030) Urine Protein (Negative) Urine Glucose (UA) (Negative) Urine Ketones (Negative) Urine Blood (Negative) Urine Nitrite (Negative) Urine Bilirubin (Negative) Urine Urobilinogen (Negative) Ur Leukocyte Esterase (Negative) Urine WBC (Auto) (0-5) /hpf Urine RBC (Auto) (0-4) /hpf U Hyaline Cast (Auto) (0-5) /lpf U Epithel Cells (Auto) (0-5) /lpf Urine Bacteria (Auto) (Negative) Ur Renal Epithelial Cell Urine Mucus (None Prsent) Urine Yeast Lyme Disease IgG Ab (Negative) Lyme Disease IgM Ab (Negative) COVID-19 Eval Order SARS-CoV-2 (PCR) (Negative) Blood Type Antibody Screen 09/17/20 09/17/20 09/17/20 Range/Units 19:42 19:42 22:28 WBC (4.8-10.8) K/uL RBC (4.7-6.1) M/uL Hgb (14.0-18.0) g/dL Hct (42-52) % MCV (80-100) fL MCH (25-34) pg MCHC (32-36) g/dL RDW Std Deviation (36.4-46.3) fL RDW Coeff of Tri (11.5-14.5) % Plt Count (130-400) K/uL MPV (7.4-10.4) fL Immature Gran % (Auto) % Neut % (Auto) % Lymph % (Auto) % [place] % (Auto) % Eos % (Auto) % Baso % (Auto) % Neut # (Auto) (1.4-6.5) K/uL Lymph # (Auto) (1.2-3.4) K/uL [place] # (Auto) (0.11-0.59) K/uL Eos # (Auto) (0-0.5) K/uL Baso # (Auto) (0-0.2) K/uL Immature Gran # (Auto) (0.00-0.02) K/uL Absolute Nucleated RBC (0-0) K/uL Nucleated RBC % (auto) % ESR (0-20) mm/hr PT (9.0-12.0) Seconds INR (0.9-1.1) APTT (21.0-31.0) Seconds PTT Ratio Sodium (136-145) mmol/L Potassium (3.5-5.1) mmol/L Chloride (98-107) mmol/L Carbon Dioxide (21-32) mmol/L Anion Gap (3-11) BUN (7-18) mg/dl Creatinine (0.6-1.4) mg/dl Est Cr Clr Drug Dosing ml/min Est GFR ( Amer) ml/min Est GFR (Non-Af Amer) ml/min BUN/Creatinine Ratio (10-20) Glucose (70-99) mg/dl POC Glucose (70-99) mg/dl Calcium (8.5-10.1) mg/dl Magnesium (1.8-2.4) mg/dl Iron (35-175) mcg/dl TIBC (250-450) mcg/dl Transferrin (200-360) mg/dl Transferrin % Sat (20-50) % Ferritin (8-388) ng/ml Total Bilirubin (0.2-1) mg/dl AST (15-37) U/L ALT (12-78) U/L Alkaline Phosphatase (45-117) U/L Troponin I (0-0.045) ng/ml C-Reactive Protein (0-0.29) mg/dl Total Protein (6.4-8.2) gm/dl Albumin (3.4-5.0) gm/dl Globulin (2.5-4.0) gm/dl Albumin/Globulin Ratio (0.9-2) Vitamin B12 (193-986) pg/ml 25-OH Vitamin D Total (30-100) ng/ml Folate (>5.38) ng/ml TSH (0.300-4.500) uIu/ml Specimen Hemolysis Urine Color Urine Appearance (Clear) Urine pH (4.5-7.5) Ur Specific [place] (1.000-1.030) Urine Protein (Negative) Urine Glucose (UA) (Negative) Urine Ketones (Negative) Urine Blood (Negative) Urine Nitrite (Negative) Urine Bilirubin (Negative) Urine Urobilinogen (Negative) Ur Leukocyte Esterase (Negative) Urine WBC (Auto) (0-5) /hpf Urine RBC (Auto) (0-4) /hpf U Hyaline Cast (Auto) (0-5) /lpf U Epithel Cells (Auto) (0-5) /lpf Urine Bacteria (Auto) (Negative) Ur Renal Epithelial Cell Urine Mucus (None Prsent) Urine Yeast Lyme Disease IgG Ab (Negative) Lyme Disease IgM Ab (Negative) COVID-19 Eval Order Covid19 at [facility] SARS-CoV-2 (PCR) NEGATIVE (Negative) Blood Type O Positive Antibody Screen NEGATIVE 09/18/20 09/18/20 09/18/20 Range/Units 06:04 06:04 06:04 WBC 11.41 H (4.8-10.8) K/uL RBC 3.96 L (4.7-6.1) M/uL Hgb 12.9 L (14.0-18.0) g/dL Hct 38.1 L (42-52) % MCV 96.2 (80-100) fL MCH 32.6 (25-34) pg MCHC 33.9 (32-36) g/dL RDW Std Deviation 44.6 (36.4-46.3) fL RDW Coeff of Tri 12.7 (11.5-14.5) % Plt Count 212 (130-400) K/uL MPV 9.0 (7.4-10.4) fL Immature Gran % (Auto) 0.3 % Neut % (Auto) 74.4 % Lymph % (Auto) 15.6 % [place] % (Auto) 9.6 % Eos % (Auto) 0.0 % Baso % (Auto) 0.1 % Neut # (Auto) 8.50 H (1.4-6.5) K/uL Lymph # (Auto) 1.78 (1.2-3.4) K/uL [place] # (Auto) 1.09 H (0.11-0.59) K/uL Eos # (Auto) 0.00 (0-0.5) K/uL Baso # (Auto) 0.01 (0-0.2) K/uL Immature Gran # (Auto) 0.03 H (0.00-0.02) K/uL Absolute Nucleated RBC (0-0) K/uL Nucleated RBC % (auto) % ESR (0-20) mm/hr PT (9.0-12.0) Seconds INR (0.9-1.1) APTT (21.0-31.0) Seconds PTT Ratio Sodium 139 (136-145) mmol/L Potassium 4.7 D (3.5-5.1) mmol/L Chloride 108 H (98-107) mmol/L Carbon Dioxide 26 (21-32) mmol/L Anion Gap 5.0 (3-11) BUN 21 H (7-18) mg/dl Creatinine 1.02 (0.6-1.4) mg/dl Est Cr Clr Drug Dosing 48.6 ml/min Est GFR ( Amer) 75.7 ml/min Est GFR (Non-Af Amer) 65.3 ml/min BUN/Creatinine Ratio 20.8 H (10-20) Glucose 124 H (70-99) mg/dl POC Glucose (70-99) mg/dl Calcium 8.6 (8.5-10.1) mg/dl Magnesium (1.8-2.4) mg/dl Iron (35-175) mcg/dl TIBC (250-450) mcg/dl Transferrin (200-360) mg/dl Transferrin % Sat (20-50) % Ferritin (8-388) ng/ml Total Bilirubin 0.7 (0.2-1) mg/dl AST 21 (15-37) U/L ALT 18 (12-78) U/L Alkaline Phosphatase 83 (45-117) U/L Troponin I 0.035 (0-0.045) ng/ml C-Reactive Protein (0-0.29) mg/dl Total Protein 6.3 L (6.4-8.2) gm/dl Albumin 3.2 L (3.4-5.0) gm/dl Globulin 3.1 (2.5-4.0) gm/dl Albumin/Globulin Ratio 1.0 (0.9-2) Vitamin B12 (193-986) pg/ml 25-OH Vitamin D Total (30-100) ng/ml Folate (>5.38) ng/ml TSH (0.300-4.500) uIu/ml Specimen Hemolysis Urine Color Urine Appearance (Clear) Urine pH (4.5-7.5) Ur Specific [place] (1.000-1.030) Urine Protein (Negative) Urine Glucose (UA) (Negative) Urine Ketones (Negative) Urine Blood (Negative) Urine Nitrite (Negative) Urine Bilirubin (Negative) Urine Urobilinogen (Negative) Ur Leukocyte Esterase (Negative) Urine WBC (Auto) (0-5) /hpf Urine RBC (Auto) (0-4) /hpf U Hyaline Cast (Auto) (0-5) /lpf U Epithel Cells (Auto) (0-5) /lpf Urine Bacteria (Auto) (Negative) Ur Renal Epithelial Cell Urine Mucus (None Prsent) Urine Yeast Lyme Disease IgG Ab (Negative) Lyme Disease IgM Ab (Negative) COVID-19 Eval Order SARS-CoV-2 (PCR) (Negative) Blood Type Antibody Screen 09/18/20 09/18/20 09/18/20 Range/Units 11:44 18:07 Unknown WBC (4.8-10.8) K/uL RBC (4.7-6.1) M/uL Hgb (14.0-18.0) g/dL Hct (42-52) % MCV (80-100) fL MCH (25-34) pg MCHC (32-36) g/dL RDW Std Deviation (36.4-46.3) fL RDW Coeff of Tri (11.5-14.5) % Plt Count (130-400) K/uL MPV (7.4-10.4) fL Immature Gran % (Auto) % Neut % (Auto) % Lymph % (Auto) % [place] % (Auto) % Eos % (Auto) % Baso % (Auto) % Neut # (Auto) (1.4-6.5) K/uL Lymph # (Auto) (1.2-3.4) K/uL [place] # (Auto) (0.11-0.59) K/uL Eos # (Auto) (0-0.5) K/uL Baso # (Auto) (0-0.2) K/uL Immature Gran # (Auto) (0.00-0.02) K/uL Absolute Nucleated RBC (0-0) K/uL Nucleated RBC % (auto) % ESR (0-20) mm/hr PT (9.0-12.0) Seconds INR (0.9-1.1) APTT (21.0-31.0) Seconds PTT Ratio Sodium (136-145) mmol/L Potassium (3.5-5.1) mmol/L Chloride (98-107) mmol/L Carbon Dioxide (21-32) mmol/L Anion Gap (3-11) BUN (7-18) mg/dl Creatinine (0.6-1.4) mg/dl Est Cr Clr Drug Dosing ml/min Est GFR ( Amer) ml/min Est GFR (Non-Af Amer) ml/min BUN/Creatinine Ratio (10-20) Glucose (70-99) mg/dl POC Glucose (70-99) mg/dl Calcium (8.5-10.1) mg/dl Magnesium (1.8-2.4) mg/dl Iron (35-175) mcg/dl TIBC (250-450) mcg/dl Transferrin (200-360) mg/dl Transferrin % Sat (20-50) % Ferritin (8-388) ng/ml Total Bilirubin (0.2-1) mg/dl AST (15-37) U/L ALT (12-78) U/L Alkaline Phosphatase (45-117) U/L Troponin I < 0.015 (0-0.045) ng/ml C-Reactive Protein (0-0.29) mg/dl Total Protein (6.4-8.2) gm/dl Albumin (3.4-5.0) gm/dl Globulin (2.5-4.0) gm/dl Albumin/Globulin Ratio (0.9-2) Vitamin B12 (193-986) pg/ml 25-OH Vitamin D Total (30-100) ng/ml Folate (>5.38) ng/ml TSH (0.300-4.500) uIu/ml Specimen Hemolysis Urine Color Dark Yellow Urine Appearance Clear (Clear) Urine pH 5.5 (4.5-7.5) Ur Specific [place] 1.028 (1.000-1.030) Urine Protein Trace H (Negative) Urine Glucose (UA) Negative (Negative) Urine Ketones 1+ H (Negative) Urine Blood Negative (Negative) Urine Nitrite Negative (Negative) Urine Bilirubin Negative (Negative) Urine Urobilinogen Negative (Negative) Ur Leukocyte Esterase Negative (Negative) Urine WBC (Auto) 5-10 H (0-5) /hpf Urine RBC (Auto) 0-4 (0-4) /hpf U Hyaline Cast (Auto) 1-5 (0-5) /lpf U Epithel Cells (Auto) 10-20 H (0-5) /lpf Urine Bacteria (Auto) Negative (Negative) Ur Renal Epithelial Cell Not Reportable Urine Mucus Present A (None Prsent) Urine Yeast Lyme Disease IgG Ab Negative (Negative) Lyme Disease IgM Ab Negative (Negative) COVID-19 Eval Order SARS-CoV-2 (PCR) (Negative) Blood Type Antibody Screen 09/19/20 09/19/20 09/19/20 Range/Units 06:58 06:58 08:49 WBC 17.11 H (4.8-10.8) K/uL RBC 2.96 L (4.7-6.1) M/uL Hgb 9.6 L D (14.0-18.0) g/dL Hct 28.7 L (42-52) % MCV 97.0 (80-100) fL MCH 32.4 (25-34) pg MCHC 33.4 (32-36) g/dL RDW Std Deviation 45.4 (36.4-46.3) fL RDW Coeff of Tri 12.9 (11.5-14.5) % Plt Count 197 (130-400) K/uL MPV 8.8 (7.4-10.4) fL Immature Gran % (Auto) 0.2 % Neut % (Auto) 80.9 % Lymph % (Auto) 8.8 % [place] % (Auto) 10.0 % Eos % (Auto) 0.0 % Baso % (Auto) 0.1 % Neut # (Auto) 13.85 H (1.4-6.5) K/uL Lymph # (Auto) 1.50 (1.2-3.4) K/uL [place] # (Auto) 1.71 H (0.11-0.59) K/uL Eos # (Auto) 0.00 (0-0.5) K/uL Baso # (Auto) 0.01 (0-0.2) K/uL Immature Gran # (Auto) 0.04 H (0.00-0.02) K/uL Absolute Nucleated RBC (0-0) K/uL Nucleated RBC % (auto) % ESR 18 (0-20) mm/hr PT (9.0-12.0) Seconds INR (0.9-1.1) APTT (21.0-31.0) Seconds PTT Ratio Sodium 139 (136-145) mmol/L Potassium 4.5 (3.5-5.1) mmol/L Chloride 108 H (98-107) mmol/L Carbon Dioxide 27 (21-32) mmol/L Anion Gap 4.0 (3-11) BUN 17 (7-18) mg/dl Creatinine 0.89 (0.6-1.4) mg/dl Est Cr Clr Drug Dosing 55.7 ml/min Est GFR ( Amer) 88.5 ml/min Est GFR (Non-Af Amer) 76.3 ml/min BUN/Creatinine Ratio 18.8 (10-20) Glucose 106 H (70-99) mg/dl POC Glucose (70-99) mg/dl Calcium 8.1 L (8.5-10.1) mg/dl Magnesium (1.8-2.4) mg/dl Iron (35-175) mcg/dl TIBC (250-450) mcg/dl Transferrin (200-360) mg/dl Transferrin % Sat (20-50) % Ferritin (8-388) ng/ml Total Bilirubin 0.7 (0.2-1) mg/dl AST 49 H (15-37) U/L ALT 18 (12-78) U/L Alkaline Phosphatase 60 (45-117) U/L Troponin I (0-0.045) ng/ml C-Reactive Protein (0-0.29) mg/dl Total Protein 5.5 L (6.4-8.2) gm/dl Albumin 2.6 L (3.4-5.0) gm/dl Globulin 2.9 (2.5-4.0) gm/dl Albumin/Globulin Ratio 0.9 (0.9-2) Vitamin B12 (193-986) pg/ml 25-OH Vitamin D Total (30-100) ng/ml Folate (>5.38) ng/ml TSH (0.300-4.500) uIu/ml Specimen Hemolysis Urine Color Urine Appearance (Clear) Urine pH (4.5-7.5) Ur Specific [place] (1.000-1.030) Urine Protein (Negative) Urine Glucose (UA) (Negative) Urine Ketones (Negative) Urine Blood (Negative) Urine Nitrite (Negative) Urine Bilirubin (Negative) Urine Urobilinogen (Negative) Ur Leukocyte Esterase (Negative) Urine WBC (Auto) (0-5) /hpf Urine RBC (Auto) (0-4) /hpf U Hyaline Cast (Auto) (0-5) /lpf U Epithel Cells (Auto) (0-5) /lpf Urine Bacteria (Auto) (Negative) Ur Renal Epithelial Cell Urine Mucus (None Prsent) Urine Yeast Lyme Disease IgG Ab (Negative) Lyme Disease IgM Ab (Negative) COVID-19 Eval Order SARS-CoV-2 (PCR) (Negative) Blood Type Antibody Screen 09/19/20 09/19/20 09/19/20 Range/Units 08:55 08:55 15:54 WBC 15.06 H (4.8-10.8) K/uL RBC 2.80 L (4.7-6.1) M/uL Hgb 9.1 L (14.0-18.0) g/dL Hct 27.4 L (42-52) % MCV 97.9 (80-100) fL MCH 32.5 (25-34) pg MCHC 33.2 (32-36) g/dL RDW Std Deviation 46.0 (36.4-46.3) fL RDW Coeff of Tri 12.8 (11.5-14.5) % Plt Count 193 (130-400) K/uL MPV 8.8 (7.4-10.4) fL Immature Gran % (Auto) % Neut % (Auto) % Lymph % (Auto) % [place] % (Auto) % Eos % (Auto) % Baso % (Auto) % Neut # (Auto) (1.4-6.5) K/uL Lymph # (Auto) (1.2-3.4) K/uL [place] # (Auto) (0.11-0.59) K/uL Eos # (Auto) (0-0.5) K/uL Baso # (Auto) (0-0.2) K/uL Immature Gran # (Auto) (0.00-0.02) K/uL Absolute Nucleated RBC (0-0) K/uL Nucleated RBC % (auto) % ESR (0-20) mm/hr PT (9.0-12.0) Seconds INR (0.9-1.1) APTT (21.0-31.0) Seconds PTT Ratio Sodium (136-145) mmol/L Potassium (3.5-5.1) mmol/L Chloride (98-107) mmol/L Carbon Dioxide (21-32) mmol/L Anion Gap (3-11) BUN (7-18) mg/dl Creatinine (0.6-1.4) mg/dl Est Cr Clr Drug Dosing ml/min Est GFR ( Amer) ml/min Est GFR (Non-Af Amer) ml/min BUN/Creatinine Ratio (10-20) Glucose (70-99) mg/dl POC Glucose (70-99) mg/dl Calcium (8.5-10.1) mg/dl Magnesium (1.8-2.4) mg/dl Iron 20 L (35-175) mcg/dl TIBC 181 L (250-450) mcg/dl Transferrin 141 L (200-360) mg/dl Transferrin % Sat 10 L (20-50) % Ferritin 138.8 (8-388) ng/ml Total Bilirubin (0.2-1) mg/dl AST (15-37) U/L ALT (12-78) U/L Alkaline Phosphatase (45-117) U/L Troponin I (0-0.045) ng/ml C-Reactive Protein 11.30 H (0-0.29) mg/dl Total Protein (6.4-8.2) gm/dl Albumin (3.4-5.0) gm/dl Globulin (2.5-4.0) gm/dl Albumin/Globulin Ratio (0.9-2) Vitamin B12 255 (193-986) pg/ml 25-OH Vitamin D Total (30-100) ng/ml Folate 7.20 (>5.38) ng/ml TSH (0.300-4.500) uIu/ml Specimen Hemolysis Urine Color Urine Appearance (Clear) Urine pH (4.5-7.5) Ur Specific [place] (1.000-1.030) Urine Protein (Negative) Urine Glucose (UA) (Negative) Urine Ketones (Negative) Urine Blood (Negative) Urine Nitrite (Negative) Urine Bilirubin (Negative) Urine Urobilinogen (Negative) Ur Leukocyte Esterase (Negative) Urine WBC (Auto) (0-5) /hpf Urine RBC (Auto) (0-4) /hpf U Hyaline Cast (Auto) (0-5) /lpf U Epithel Cells (Auto) (0-5) /lpf Urine Bacteria (Auto) (Negative) Ur Renal Epithelial Cell Urine Mucus (None Prsent) Urine Yeast Lyme Disease IgG Ab (Negative) Lyme Disease IgM Ab (Negative) COVID-19 Eval Order SARS-CoV-2 (PCR) (Negative) Blood Type Antibody Screen 09/19/20 09/19/20 09/19/20 Range/Units 16:58 20:26 Unknown WBC (4.8-10.8) K/uL RBC (4.7-6.1) M/uL Hgb (14.0-18.0) g/dL Hct (42-52) % MCV (80-100) fL MCH (25-34) pg MCHC (32-36) g/dL RDW Std Deviation (36.4-46.3) fL RDW Coeff of Tri (11.5-14.5) % Plt Count (130-400) K/uL MPV (7.4-10.4) fL Immature Gran % (Auto) % Neut % (Auto) % Lymph % (Auto) % [place] % (Auto) % Eos % (Auto) % Baso % (Auto) % Neut # (Auto) (1.4-6.5) K/uL Lymph # (Auto) (1.2-3.4) K/uL [place] # (Auto) (0.11-0.59) K/uL Eos # (Auto) (0-0.5) K/uL Baso # (Auto) (0-0.2) K/uL Immature Gran # (Auto) (0.00-0.02) K/uL Absolute Nucleated RBC (0-0) K/uL Nucleated RBC % (auto) % ESR (0-20) mm/hr PT (9.0-12.0) Seconds INR (0.9-1.1) APTT (21.0-31.0) Seconds PTT Ratio Sodium (136-145) mmol/L Potassium (3.5-5.1) mmol/L Chloride (98-107) mmol/L Carbon Dioxide (21-32) mmol/L Anion Gap (3-11) BUN (7-18) mg/dl Creatinine (0.6-1.4) mg/dl Est Cr Clr Drug Dosing ml/min Est GFR ( Amer) ml/min Est GFR (Non-Af Amer) ml/min BUN/Creatinine Ratio (10-20) Glucose (70-99) mg/dl POC Glucose 117 H 113 H (70-99) mg/dl Calcium (8.5-10.1) mg/dl Magnesium (1.8-2.4) mg/dl Iron (35-175) mcg/dl TIBC (250-450) mcg/dl Transferrin (200-360) mg/dl Transferrin % Sat (20-50) % Ferritin (8-388) ng/ml Total Bilirubin (0.2-1) mg/dl AST (15-37) U/L ALT (12-78) U/L Alkaline Phosphatase (45-117) U/L Troponin I (0-0.045) ng/ml C-Reactive Protein (0-0.29) mg/dl Total Protein (6.4-8.2) gm/dl Albumin (3.4-5.0) gm/dl Globulin (2.5-4.0) gm/dl Albumin/Globulin Ratio (0.9-2) Vitamin B12 (193-986) pg/ml 25-OH Vitamin D Total (30-100) ng/ml Folate (>5.38) ng/ml TSH (0.300-4.500) uIu/ml Specimen Hemolysis Urine Color [place] Urine Appearance Clear (Clear) Urine pH 5.5 (4.5-7.5) Ur Specific [place] 1.036 H (1.000-1.030) Urine Protein 1+ H (Negative) Urine Glucose (UA) Negative (Negative) Urine Ketones Trace H (Negative) Urine Blood 2+ H (Negative) Urine Nitrite Negative (Negative) Urine Bilirubin Negative (Negative) Urine Urobilinogen Negative (Negative) Ur Leukocyte Esterase 1+ H (Negative) Urine WBC (Auto) 10-30 H (0-5) /hpf Urine RBC (Auto) 5-10 H (0-4) /hpf U Hyaline Cast (Auto) 10-30 H (0-5) /lpf U Epithel Cells (Auto) 20-30 H (0-5) /lpf Urine Bacteria (Auto) Negative (Negative) Ur Renal Epithelial Cell Urine Mucus Present A (None Prsent) Urine Yeast Not Reportable Lyme Disease IgG Ab (Negative) Lyme Disease IgM Ab (Negative) COVID-19 Eval Order SARS-CoV-2 (PCR) (Negative) Blood Type Antibody Screen 09/20/20 09/20/20 09/21/20 Range/Units 06:53 06:53 07:58 WBC 10.40 10.58 (4.8-10.8) K/uL RBC 2.76 L 2.63 L (4.7-6.1) M/uL Hgb 8.8 L 8.5 L (14.0-18.0) g/dL Hct 27.0 L 25.6 L (42-52) % MCV 97.8 97.3 (80-100) fL MCH 31.9 32.3 (25-34) pg MCHC 32.6 33.2 (32-36) g/dL RDW Std Deviation 46.7 H 45.1 (36.4-46.3) fL RDW Coeff of Tri 13.0 12.9 (11.5-14.5) % Plt Count 194 206 (130-400) K/uL MPV 8.9 8.8 (7.4-10.4) fL Immature Gran % (Auto) 0.5 0.7 % Neut % (Auto) 74.1 74.8 % Lymph % (Auto) 12.9 12.1 % [place] % (Auto) 12.0 11.7 % Eos % (Auto) 0.4 0.5 % Baso % (Auto) 0.1 0.2 % Neut # (Auto) 7.71 H 7.92 H (1.4-6.5) K/uL Lymph # (Auto) 1.34 1.28 (1.2-3.4) K/uL [place] # (Auto) 1.25 H 1.24 H (0.11-0.59) K/uL Eos # (Auto) 0.04 0.05 (0-0.5) K/uL Baso # (Auto) 0.01 0.02 (0-0.2) K/uL Immature Gran # (Auto) 0.05 H 0.07 H (0.00-0.02) K/uL Absolute Nucleated RBC 0.03 H (0-0) K/uL Nucleated RBC % (auto) 0.3 % ESR (0-20) mm/hr PT (9.0-12.0) Seconds INR (0.9-1.1) APTT (21.0-31.0) Seconds PTT Ratio Sodium 139 (136-145) mmol/L Potassium 4.3 (3.5-5.1) mmol/L Chloride 107 (98-107) mmol/L Carbon Dioxide 27 (21-32) mmol/L Anion Gap 4.0 (3-11) BUN 17 (7-18) mg/dl Creatinine 0.84 (0.6-1.4) mg/dl Est Cr Clr Drug Dosing 59.1 ml/min Est GFR ( Amer) 90.6 ml/min Est GFR (Non-Af Amer) 78.2 ml/min BUN/Creatinine Ratio 20.6 H (10-20) Glucose 96 (70-99) mg/dl POC Glucose (70-99) mg/dl Calcium 8.1 L (8.5-10.1) mg/dl Magnesium (1.8-2.4) mg/dl Iron (35-175) mcg/dl TIBC (250-450) mcg/dl Transferrin (200-360) mg/dl Transferrin % Sat (20-50) % Ferritin (8-388) ng/ml Total Bilirubin 0.6 (0.2-1) mg/dl AST 68 H (15-37) U/L ALT 20 (12-78) U/L Alkaline Phosphatase 60 (45-117) U/L Troponin I (0-0.045) ng/ml C-Reactive Protein (0-0.29) mg/dl Total Protein 5.6 L (6.4-8.2) gm/dl Albumin 2.4 L (3.4-5.0) gm/dl Globulin 3.2 (2.5-4.0) gm/dl Albumin/Globulin Ratio 0.8 L (0.9-2) Vitamin B12 (193-986) pg/ml 25-OH Vitamin D Total (30-100) ng/ml Folate (>5.38) ng/ml TSH (0.300-4.500) uIu/ml Specimen Hemolysis Urine Color Urine Appearance (Clear) Urine pH (4.5-7.5) Ur Specific [place] (1.000-1.030) Urine Protein (Negative) Urine Glucose (UA) (Negative) Urine Ketones (Negative) Urine Blood (Negative) Urine Nitrite (Negative) Urine Bilirubin (Negative) Urine Urobilinogen (Negative) Ur Leukocyte Esterase (Negative) Urine WBC (Auto) (0-5) /hpf Urine RBC (Auto) (0-4) /hpf U Hyaline Cast (Auto) (0-5) /lpf U Epithel Cells (Auto) (0-5) /lpf Urine Bacteria (Auto) (Negative) Ur Renal Epithelial Cell Urine Mucus (None Prsent) Urine Yeast Lyme Disease IgG Ab (Negative) Lyme Disease IgM Ab (Negative) COVID-19 Eval Order SARS-CoV-2 (PCR) (Negative) Blood Type Antibody Screen 09/21/20 09/21/20 Range/Units 07:58 10:24 WBC (4.8-10.8) K/uL RBC (4.7-6.1) M/uL Hgb (14.0-18.0) g/dL Hct (42-52) % MCV (80-100) fL MCH (25-34) pg MCHC (32-36) g/dL RDW Std Deviation (36.4-46.3) fL RDW Coeff of Tri (11.5-14.5) % Plt Count (130-400) K/uL MPV (7.4-10.4) fL Immature Gran % (Auto) % Neut % (Auto) % Lymph % (Auto) % [place] % (Auto) % Eos % (Auto) % Baso % (Auto) % Neut # (Auto) (1.4-6.5) K/uL Lymph # (Auto) (1.2-3.4) K/uL [place] # (Auto) (0.11-0.59) K/uL Eos # (Auto) (0-0.5) K/uL Baso # (Auto) (0-0.2) K/uL Immature Gran # (Auto) (0.00-0.02) K/uL Absolute Nucleated RBC (0-0) K/uL Nucleated RBC % (auto) % ESR (0-20) mm/hr PT (9.0-12.0) Seconds INR (0.9-1.1) APTT (21.0-31.0) Seconds PTT Ratio Sodium 138 (136-145) mmol/L Potassium 4.4 (3.5-5.1) mmol/L Chloride 107 (98-107) mmol/L Carbon Dioxide 27 (21-32) mmol/L Anion Gap 4.0 (3-11) BUN 20 H (7-18) mg/dl Creatinine 0.82 (0.6-1.4) mg/dl Est Cr Clr Drug Dosing 60.5 ml/min Est GFR ( Amer) 91.5 ml/min Est GFR (Non-Af Amer) 79.0 ml/min BUN/Creatinine Ratio 24.5 H (10-20) Glucose 91 (70-99) mg/dl POC Glucose (70-99) mg/dl Calcium 8.0 L (8.5-10.1) mg/dl Magnesium (1.8-2.4) mg/dl Iron (35-175) mcg/dl TIBC (250-450) mcg/dl Transferrin (200-360) mg/dl Transferrin % Sat (20-50) % Ferritin (8-388) ng/ml Total Bilirubin (0.2-1) mg/dl AST (15-37) U/L ALT (12-78) U/L Alkaline Phosphatase (45-117) U/L Troponin I (0-0.045) ng/ml C-Reactive Protein (0-0.29) mg/dl Total Protein (6.4-8.2) gm/dl Albumin (3.4-5.0) gm/dl Globulin (2.5-4.0) gm/dl Albumin/Globulin Ratio (0.9-2) Vitamin B12 (193-986) pg/ml 25-OH Vitamin D Total 27.0 L (30-100) ng/ml Folate (>5.38) ng/ml TSH (0.300-4.500) uIu/ml Specimen Hemolysis Urine Color Urine Appearance (Clear) Urine pH (4.5-7.5) Ur Specific [place] (1.000-1.030) Urine Protein (Negative) Urine Glucose (UA) (Negative) Urine Ketones (Negative) Urine Blood (Negative) Urine Nitrite (Negative) Urine Bilirubin (Negative) Urine Urobilinogen (Negative) Ur Leukocyte Esterase (Negative) Urine WBC (Auto) (0-5) /hpf Urine RBC (Auto) (0-4) /hpf U Hyaline Cast (Auto) (0-5) /lpf U Epithel Cells (Auto) (0-5) /lpf Urine Bacteria (Auto) (Negative) Ur Renal Epithelial Cell Urine Mucus (None Prsent) Urine Yeast Lyme Disease IgG Ab (Negative) Lyme Disease IgM Ab (Negative) COVID-19 Eval Order SARS-CoV-2 (PCR) (Negative) Blood Type Antibody Screen Coagulation 09/17/20 Range/Units 18:15 INR 0.9 (0.9-1.1) Diagnostic Findings . PG Care Time/CCT Total # of Minutes Spent Total Time Spent with Patient: Total time spent is greater than 50% in coordination of care (as documented) at patient's floor/unit and/or counseling patient: Coding Level of Care Code 57023 Post Operative Follow-Up Diagnoses Closed left hip fracture S72.002A
[2020-09-21] MEDS: cefTRIAXone SODIUM 1,000 MG in DEXTROSE 5% 50 ML IV SCH (17:41)
[2020-09-21] MEDS: ENOXAPARIN INJ 40 MG/0.4 ML SYR SQ SCH (20:07)
[2020-09-21] MEDS: DOCUSATE SODIUM/SENNA 50/8.6MG TAB PO SCH (20:12)
[2020-09-21] MEDS: MELATONIN 3 MG TAB PO SCH (20:12)
[2020-09-21] MEDS: bisacodyL 10 MG SUPP PR SCH (20:12)
[2020-09-22] MEDS: cephALEXin 500 MG CAP PO SCH ×5 (05:56→21:56)
[2020-09-22] MEDS: CHOLECALCIFEROL 1,000 UNITS 25 MCG TAB PO SCH (08:16)
[2020-09-22] MEDS: ATORVASTATIN 20 MG TAB PO SCH (08:17)
[2020-09-22] MEDS: CYANOCOBALAMIN 500 MCG TABLET (VITAMIN B-12) PO SCH (08:17)
[2020-09-22] MEDS: ASPIRIN 81 MG ECTAB PO SCH (08:17)
[2020-09-22] MEDS: PANTOprazole 40 MG TAB PO SCH (08:17)
[2020-09-22] MEDS: POLYETHYLENE (MIRALAX) 17 GM PACK PO SCH (08:18)
[2020-09-22] MEDS: bisacodyL 10 MG SUPP PR SCH (08:18)
[2020-09-22] MEDS: FAMOTIDINE 20 MG TAB PO SCH ×2 (08:18→19:21)
[2020-09-22] MEDS: DOCUSATE SODIUM 100 MG CAP PO SCH ×2 (08:18→19:23)
--- NOTE | 2020-09-22 08:34 | Hospitalist Progress Note ---
Date of Service September 22, 2020 Assessment & Plan (1) Closed left hip fracture: Plan: Mechanical fall. CXR without acute process. UA without evidence of infection POD# 3 Left Hip Fracture Closed Reduction Internal Fixation with long cephalomedullary nail (Left) - Vlad Lujan MD EBL 100cc H/h 15 on admission (but suspect some hemoconcentration), was 12 prior to surgery (dilutional and acute blood loss from fx) Hgb improved to 8.9 today (low iron and got Venofer x 3 doses). Also continuing on B12 supplementation and would continue at discharge. Once able to have more substantial BM would start on daily dosing for next couple of weeks with appropriate bowel regimen Ceftriaxone IV given x 3 days. Urine cx with mixed otis but had received abx prior to cx. changed to Keflex 500mg QID and will complete 5 day course ( to be completed after tomorrows dose) WBC wnl, afebrile Several small BM --> KUB non-obstructive. Less distension today, + BS. No pain. Mag citrate for today x 1 and continue to monitor Vit D low 27 -- supplementation started and continued at d/c DVT Proph --> Lovenox SQ while inpatient and plan ASA BID for 6 weeks at d/c Continue to monitor. SNF planned for d/c but unable to have bed until next week. Updated POA on phone last evening (2) Urinary retention: Plan: likely secondary to constipation/possible UTI (Working on bowel regimen -- BM x 2) +Rocephin 09/19 for pus around Llamas inserted pre-op. Culture pending but would treat given improvement in cognition although suspect some aspect of delirium compounded in patient with dementia. (Of note, pt received abx operative period and cx may be negative) Cx with pin-point growth, re-incubating Llamas was discontinued, required st cath x 1. Has been voiding since without need for additional st cath Bladder scan as needed Suspect constipation playing role in retention Switched from Rocephin to Keflex to complete 5 day course (3) Constipation: Plan: No BM since admission prior to 09/20 -- several small, one incontinent last evening Mag citrate today as above Continue bowel regimen at discharge as well (4) Acute blood loss anemia: Plan: see above per ortho, nailing with significant bleeding -- also with bleeding in bed yesterday and saturated dressing today has gotten IVF so suspect some dilutional, however did check iron stores which were low --> received 3 doses IV venofer while inpatient B12 also low normal -- given IM x1 and continued on oral supplementation Hgb improved today to 8.9 today -- continue to monitor No CP/SOB would order 1 unit if needed CBC in AM (5) Fall: Plan: Status post mechanical fall with closed head injury CT head negative. No focal deficit. Some confusion as to where he is --> frequent reorientation- - IMPROVED and appears at baseline per conversation with SHANTAL on phone during her visits Can add seroquel or other if needed for -->from [facility] (6) Hyperlipidemia: Plan: Atorvastatin 20 mg daily (7) GERD (gastroesophageal reflux disease): Plan: PPI (8) Insomnia: Plan: Melatonin 1 mg p.o. at bedtime as needed (9) Closed head injury: Plan: CT of head and cervical spine negative Some confusion regarding where he is at but quickly reoriented --> CT head negative on admission. Chronic microvascular changes. Continue ASA 81mg daily --> plans for BID at d/c for DVT proph for 6 weeks as above Plan: Continue to monitor blood counts, bowel regimen. CM following and ref sent to SNF -- likely no bed until next week as [place] [facility] [place] are unable to take back at this time due to level of care. also resides in memory unit Niesha BLACK [id number] [phone] cell, home --> Updated evening 09/21 Dispo: continued inpatient stay Admission and Anticipated Discharge Date Admission Date: September 17, 2020 Subjective BM overnight, small, liquid reported by RN. Dressing change without blood this morning but did note some last evening. Needing 3 for ambulation. Attempting to have BM but tolerating orals without issue. No pain reported. Will order mag citrate for today and continue to monitor. Hgb stable and improved. will remain inpatient through weekend while awaiting bed at SNF next week. Leeroy BLACK updated by phone last night. Review of Systems Review of Systems: All systems reviewed & are unremarkable except as noted in HPI & below Physical Exam Physical Exam: The patient is awake, alert and oriented to person (at time, did know in hospital, that he had surgery, year incorrect 2019 but did state August as month -- from Memory Unit [place]), well developed and well nourished, normocephalic and atraumatic, lying in bed and in no acute distress. HEENT--PERRL, EOMI, mucous membranes and oropharynx slightly moist. Neck--supple. No JVD. No bruits. Thyroid normal, trachea midline, no adenopathy. Heart--HR 98bpm, normal S1 and S2. No murmurs, rubs or gallops. Lungs--clear bilaterally, no respiratory distress, no accessory muscle use. Abdomen--+BS, slightly hypoactive but present, distended (less), non-tender. no hernias or masses, no organomegaly. Extremities--no cyanosis or clubbing. Edema to left thigh from surgery as expected (decreased today), dressing c/d/i, more mobile. magalis intact. no surrounding erythema or purulent drainage. There are good distal pulses B/L. NVI Dermatologic--normal skin turgor, normal color Neurologic--cranial nerves II through XII grossly intact Urologic--condom cath without urine Rheumatologic--normal range of motion. Psychiatric--alert and oriented to person only, normal affect Results & Data Results & Data ([facility]) Vital Signs (Past 12 Hours) Vital Signs Temp Pulse Resp BP Pulse Ox 09/22/20 07:30 36.5 C 107 H 20 131/70 95 09/21/20 22:54 36.9 C 108 H 18 109/67 94 Laboratory Results 09/22/20 09/22/20 09/21/20 Range/Units 08:49 08:49 10:24 WBC 9.35 (4.8-10.8) K/uL RBC 2.72 L (4.7-6.1) M/uL Hgb 8.9 L (14.0-18.0) g/dL Hct 26.9 L (42-52) % MCV 98.9 (80-100) fL MCH 32.7 (25-34) pg MCHC 33.1 (32-36) g/dL RDW Std Deviation 46.7 H (36.4-46.3) fL RDW Coeff of Tri 13.5 (11.5-14.5) % Plt Count 259 (130-400) K/uL MPV 8.4 (7.4-10.4) fL Immature Gran % (Auto) 0.9 % Neut % (Auto) 60.4 % Lymph % (Auto) 23.0 % [place] % (Auto) 13.3 % Eos % (Auto) 2.2 % Baso % (Auto) 0.2 % Neut # (Auto) 5.65 (1.4-6.5) K/uL Lymph # (Auto) 2.15 (1.2-3.4) K/uL [place] # (Auto) 1.24 H (0.11-0.59) K/uL Eos # (Auto) 0.21 (0-0.5) K/uL Baso # (Auto) 0.02 (0-0.2) K/uL Immature Gran # (Auto) 0.08 H (0.00-0.02) K/uL Absolute Nucleated RBC 0.04 H (0-0) K/uL Nucleated RBC % (auto) 0.4 % Sodium 138 (136-145) mmol/L Potassium 4.0 (3.5-5.1) mmol/L Chloride 107 (98-107) mmol/L Carbon Dioxide 26 (21-32) mmol/L Anion Gap 5.0 (3-11) BUN 20 H (7-18) mg/dl Creatinine 0.82 (0.6-1.4) mg/dl Est Cr Clr Drug Dosing 60.5 ml/min Est GFR ( Amer) 91.5 ml/min Est GFR (Non-Af Amer) 79.0 ml/min BUN/Creatinine Ratio 24.6 H (10-20) Glucose 95 (70-99) mg/dl Calcium 8.3 L (8.5-10.1) mg/dl Total Bilirubin 0.8 (0.2-1) mg/dl AST 59 H (15-37) U/L ALT 28 (12-78) U/L Alkaline Phosphatase 66 (45-117) U/L Total Protein 5.9 L (6.4-8.2) gm/dl Albumin 2.4 L (3.4-5.0) gm/dl Globulin 3.5 (2.5-4.0) gm/dl Albumin/Globulin Ratio 0.7 L (0.9-2) 25-OH Vitamin D Total 27.0 L (30-100) ng/ml Diagnostic Findings KUB X-Ray 09/21/20 08:45 KUB HISTORY: Recent hip surgery. f/u constipation COMPARISON: KUB 09/20/2020. FINDINGS: Borderline dilated gas and stool-filled colon remains unchanged. No dilated loops of small bowel identified. Prior cholecystectomy. Left hip postoperative changes are again noted. No renal calculi. No ureteral calculi. No pneumoperitoneum or pneumatosis. IMPRESSION: No change in the borderline dilated gas and stool-filled colon. ACT 112: Negative or not required by law. Electronically signed by: Haroon Escalante M.D. 09/21/2020 11:46 AM PG Care Time/CCT Total # of Minutes Spent Total Time Spent with Patient: Total time spent is greater than 50% in coordination of care (as documented) at patient's floor/unit and/or counseling patient: Coding Level of Care Code 61757 Subseq Hosp Care Lvl 2 Diagnoses Closed left hip fracture S72.002A Urinary retention R33.9 Constipation K59.00 Acute blood loss anemia D62 Fall W19.XXXA Encounter type: initial encounter Hyperlipidemia E78.5 GERD (gastroesophageal reflux disease) K21.9 Insomnia G47.00 Closed head injury S09.90XA Encounter type: initial encounter (1) Closed head injury Encounter type: initial encounter Qualified Code(s): S09.90XA - Unspecified injury of head, initial encounter (2) Fall Encounter type: initial encounter Qualified Code(s): W19.XXXA - Unspecified fall, initial encounter
[2020-09-22] MEDS ORDERED: CHOLECALCIFEROL 1,000 UNITS 25 MCG TAB PO SCH (09:00)
[2020-09-22 09:10] LABS: Basophils # (auto) 0.02 K/uL (0-0.2); Basophils % (auto) 0.2 %; Eosinophils # (auto) 0.21 K/uL (0-0.5); Eosinophils % (auto) 2.2 %; Hematocrit (blood only) 26.9 % (42-52); Hemoglobin 8.9 g/dL (14.0-18.0); Immature Granulocytes # (auto) 0.08 K/uL (0.00-0.02); Immature Granulocytes % (auto) 0.9 %; Lymphocytes # (auto) 2.15 K/uL (1.2-3.4); Mean Corpuscular Hemoglobin 32.7 pg (25-34); Mean Corpuscular Hgb Conc 33.1 g/dL (32-36); Mean Corpuscular Volume 98.9 fL (80-100); Mean Platelet Volume 8.4 fL (7.4-10.4); Monocytes # (auto) 1.24 K/uL (0.11-0.59); Monocytes % (auto) 13.3 %; Neutrophils # (auto) 5.65 K/uL (1.4-6.5); Neutrophils % (auto) 60.4 %; Nucleated RBC # (auto) 0.04 K/uL (0-0); Nucleated RBC % (auto) 0.4 %; Platelet Count 259 K/uL (130-400); RDW Coefficient of Variation 13.5 % (11.5-14.5); RDW Standard Deviation 46.7 fL (36.4-46.3); Red Blood Count 2.72 M/uL (4.7-6.1); White Blood Count 9.35 K/uL (4.8-10.8)
[2020-09-22 09:27] LABS: Albumin Level 2.4 gm/dl (3.4-5.0); BUN Creatinine Ratio 24.6 (10-20); Calcium 8.3 mg/dl (8.5-10.1); Creatinine Clr Calc Pharmacy 60.5 ml/min; Est GFR (African American) 91.5 ml/min
[2020-09-22 09:30] LABS: Albumin Globulin Ratio 0.7 (0.9-2); Bilirubin,Total 0.8 mg/dl (0.2-1); Globulin 3.5 gm/dl (2.5-4.0); Total Protein 5.9 gm/dl (6.4-8.2)
--- NOTE | 2020-09-22 09:37 | XRay Report ---
KUB CLINICAL HISTORY: Constipation. FINDINGS: 2 AP supine abdominal radiographs are compared to study dated 09/21/2020. There is a nonobst ructed abdominal bowel gas pattern. Moderate fecal retention is seen throughout the colon. This is si milar to yesterday. No evidence of intraperitoneal free air is seen on these supine images. Cholecyst ectomy clips are noted in the right upper quadrant. Prostatic calcifications are seen in the pelvis. The skeletal structures are osteopenic. There is advanced lumbosacral spondylosis. Postoperative wise ge is noted in the partially imaged left femur. IMPRESSION: Nonobstructed abdominal bowel gas pattern. No significant change from yesterday. Electronically signed by: Blaine Rios M.D. 09/22/2020 9:36 AM
[2020-09-22] MEDS ORDERED: MINERAL OIL ENEMA 133 ML BTL PR ONE (09:48)
--- NOTE | 2020-09-22 10:41 | Orthopedic Progress Note ---
Date of Service September 22, 2020 Assessment & Plan (1) Closed left hip fracture: Postop day 4 s/p left cephalomedullary nail for peritrochanteric fracture. Making expected progress Keep dressing in place while hospitalized. Change daily or prn. May be open to air if dry for 24 hours after 7 days postop Continue plan of care. Weightbearing as tolerated and range of motion as tolerated, continue gait training VTE prophylaxis per primary team at this point Dispo: Will need orthopedic follow-up in 2-3 weeks for wound check, staple removal, and repeat x-rays. Stable for transition next level of care from an orthopedic perspective. Please contact with further questions Subjective Reports that the Left hip and thigh 'feel good'. Review of Systems All systems reviewed & are unremarkable except as noted in HPI & below. Physical Exam Left lower extremity: Lying supine. Dressing was clean dry and intact. Thigh compartments full but soft and minimally tender. No knee effusion. Distally neurovascularly intact. Constitutional WD/WN, vitals as above no acute distress and not intoxicated appearing Respiratory normal respiratory effort; no labored breathing Cardiovascular Extremities: normal capillary refill Results & Data Results & Data Laboratory Results Laboratory Tests 09/21/20 09/22/20 07:58 08:49 Hgb 8.5 L Hct 25.6 L 26.9 L Diagnostic Findings . PG Care Time/CCT Total # of Minutes Spent Total Time Spent with Patient: Total time spent is greater than 50% in coordination of care (as documented) at patient's floor/unit and/or counseling patient: Coding Level of Care Code 38138 Post Operative Follow-Up Diagnoses Closed left hip fracture S72.002A
[2020-09-22] MEDS ORDERED: MAGNESIUM CITRATE 296 ML/BTL PO STA (11:51)
[2020-09-22] MEDS ORDERED: SODIUM CHLORIDE 0.9% 500 ML IV SCH (17:30)
[2020-09-22] MEDS: ENOXAPARIN INJ 40 MG/0.4 ML SYR SQ SCH (19:21)
[2020-09-22] MEDS: DOCUSATE SODIUM/SENNA 50/8.6MG TAB PO SCH (19:23)
[2020-09-22] MEDS: MELATONIN 3 MG TAB PO SCH (21:56)
[2020-09-23 05:59] LABS: Hematocrit (blood only) 28.4 % (42-52); Hemoglobin 9.3 g/dL (14.0-18.0); Mean Corpuscular Hemoglobin 32.9 pg (25-34); Mean Corpuscular Hgb Conc 32.7 g/dL (32-36); Mean Corpuscular Volume 100.4 fL (80-100); Mean Platelet Volume 8.5 fL (7.4-10.4); Platelet Count 312 K/uL (130-400); RDW Coefficient of Variation 13.6 % (11.5-14.5); RDW Standard Deviation 47.8 fL (36.4-46.3); Red Blood Count 2.83 M/uL (4.7-6.1); White Blood Count 9.01 K/uL (4.8-10.8)
[2020-09-23 06:30] LABS: BUN Creatinine Ratio 24.2 (10-20); Calcium 8.8 mg/dl (8.5-10.1); Creatinine Clr Calc Pharmacy 62.8 ml/min; Est GFR (African American) 92.9 ml/min; Est GFR (Non-African American) 80.2 ml/min; Potassium 4.1 mmol/L (3.5-5.1)
[2020-09-23] MEDS ORDERED: SODIUM CHLORIDE 0.9% 500 ML IV SCH (08:00)
--- NOTE | 2020-09-23 08:00 | Hospitalist Progress Note ---
Date of Service September 23, 2020 Assessment & Plan (1) Closed left hip fracture: Plan: Mechanical fall. CXR without acute process. UA without evidence of infection POD# 4 Left Hip Fracture Closed Reduction Internal Fixation with long cephalomedullary nail (Left) - Vlad Lujan MD EBL 100cc H/h 15 on admission (but suspect some hemoconcentration), was 12 prior to surgery (dilutional and acute blood loss from fx) Hgb improved to 9.3 today (low iron and got Venofer x 3 doses during admission)-- consider oral daily at d/c but will need bowel regimen as well Also continuing on B12 supplementation (increased today and also added folic acid low dose/low normal) --would continue at discharge. Ceftriaxone IV given x 3 days. Urine cx with mixed otis but had received abx prior to cx. changed to Keflex 500mg QID and will complete 5 day course, to be completed today Morris inserted today for urinary retention (worsened by constipation which has been improved)-- will need to monitor given likely UTI from prior morris insertion on admission for hip fx WBC wnl, afebrile Vit D low 27 -- supplementation started and continued at d/c DVT Proph --> Lovenox SQ while inpatient and plan ASA BID for 6 weeks at d/c per ortho recs Continue to monitor. SNF planned for d/c but unable to have bed until next week. Updated POA on phone 09/21 (2) Urinary retention: Plan: likely secondary to constipation/possible UTI (Working on bowel regimen -- BM x 2) +Rocephin 09/19 for pus around Morris inserted pre-op. Culture pending but would treat given improvement in cognition although suspect some aspect of delirium compounded in patient with dementia. (Of note, pt received abx operative period and cx may be negative) Switched from Rocephin to Keflex to complete 5 day course, to be completed 09/23 Cx with pin-point growth, re-incubating --> low counts mixed otis Morris inserted 09/23 for retention --> monitor for now as above Voiding trial prior to d/c vs urology? (3) Constipation: Plan: No BM since admission prior to 09/20 -- several small, one incontinent last evening Mag citrate 09/22 with large BM reported Continue bowel regimen (4) Acute blood loss anemia: Plan: see above per ortho, nailing with significant bleeding -- also with bleeding in bed and saturated dressings has gotten IVF so suspect some dilutional, however did check iron stores which were low --> received 3 doses IV venofer while inpatient B12 also low normal -- given IM x1 and continued on oral supplementation (increased today) Hgb improved today to 9.3 today -- continue to monitor No CP/SOB reported CBC in AM (5) Fall: Plan: Status post mechanical fall with closed head injury CT head negative. No focal deficit. At baseline cognitively per SHANTAL on prior conversations. Remains oriented at baseline From [facility] --> needing SNF prior to return there where his also resides (6) Hyperlipidemia: Plan: Atorvastatin 20 mg daily (7) GERD (gastroesophageal reflux disease): Plan: PPI (8) Insomnia: Plan: Melatonin 1 mg p.o. at bedtime as needed (9) Closed head injury: Plan: CT of head and cervical spine negative Some confusion regarding where he is at but quickly reoriented --> CT head negative on admission. Chronic microvascular changes. Continue ASA 81mg daily --> plans for BID at d/c for DVT proph for 6 weeks as above Plan: Continue to monitor blood counts, bowel regimen. CM following and ref sent to SNF -- likely no bed until next week as patient from [facility] [place] and they are unable to take back at this time due to level of care. also resides in [facility] unit Niesha BLACK [id number] [phone] cell, home Dispo: continued inpatient stay, awaiting placement Admission and Anticipated Discharge Date Admission Date: September 17, 2020 Subjective Patient doing well. Hgb improved. Pain reported as controlled. Dressing changed by RN with some purulent greenish discharge to corner of dressing --> alerted Dr Lujan to have provider evaluate at some point today. No surrounding erythema or drainage apparent from staple line. Had large BM after mag citrate and much less distended. Unfortunately had urinary retention requiring morris insertion today but as discussed, will keep in for today and consider voiding trial possibly tomorrow or next day. Eating/drinking without issue. No fever, chills Review of Systems Review of Systems: All systems reviewed & are unremarkable except as noted in HPI & below Physical Exam Physical Exam: The patient is awake, alert and oriented to person, place, time (at times--from [facility] [place]), well developed and well nourished, normocephalic and atraumatic, lying in bed and in no acute distress. HEENT--PERRL, EOMI, mucous membranes and oropharynx slightly dry. Neck--supple. No JVD. No bruits. Thyroid normal, trachea midline, no adenopathy. Heart--HR 96bpm, regular, normal S1 and S2. No murmurs, rubs or gallops. Lungs--clear bilaterally, no respiratory distress, no accessory muscle use. Abdomen--+BS, less distended, non-tender Extremities--no cyanosis or clubbing. Edema to left thigh from surgery as expected (decreased today), dressing with green/brown discharge in hazard bin --> surgical incision looks good currently without purulent discharge able to be expressed. magalis intact There are good distal pulses B/L. NVI Dermatologic--normal skin turgor, normal color Neurologic--cranial nerves II through XII grossly intact Urologic--morris catheter with concentrated urine Rheumatologic--normal range of motion. Psychiatric--alert and oriented to person, place, intermittently to time, pleasant affect Results & Data Results & Data ([facility]) Vital Signs (Past 12 Hours) Vital Signs Temp Pulse Resp BP Pulse Ox 09/22/20 23:13 36.7 C 111 H 16 128/69 95 Laboratory Results 09/23/20 09/23/20 Range/Units 05:17 05:17 WBC 9.01 (4.8-10.8) K/uL RBC 2.83 L (4.7-6.1) M/uL Hgb 9.3 L (14.0-18.0) g/dL Hct 28.4 L (42-52) % MCV 100.4 H (80-100) fL MCH 32.9 (25-34) pg MCHC 32.7 (32-36) g/dL RDW Std Deviation 47.8 H (36.4-46.3) fL RDW Coeff of Tri 13.6 (11.5-14.5) % Plt Count 312 (130-400) K/uL MPV 8.5 (7.4-10.4) fL Sodium 140 (136-145) mmol/L Potassium 4.1 (3.5-5.1) mmol/L Chloride 108 H (98-107) mmol/L Carbon Dioxide 27 (21-32) mmol/L Anion Gap 5.0 (3-11) BUN 19 H (7-18) mg/dl Creatinine 0.79 (0.6-1.4) mg/dl Est Cr Clr Drug Dosing 62.8 ml/min Est GFR ( Amer) 92.9 ml/min Est GFR (Non-Af Amer) 80.2 ml/min BUN/Creatinine Ratio 24.2 H (10-20) Glucose 100 H (70-99) mg/dl Calcium 8.8 (8.5-10.1) mg/dl PG Care Time/CCT Total # of Minutes Spent Total Time Spent with Patient: Total time spent is greater than 50% in coordination of care (as documented) at patient's floor/unit and/or counseling patient: Coding Level of Care Code 77504 Subseq Hosp Care Lvl 3 Diagnoses Closed left hip fracture S72.002A Urinary retention R33.9 Constipation K59.00 Acute blood loss anemia D62 Fall W19.XXXA Encounter type: initial encounter Hyperlipidemia E78.5 GERD (gastroesophageal reflux disease) K21.9 Insomnia G47.00 Closed head injury S09.90XA Encounter type: initial encounter (1) Closed head injury Encounter type: initial encounter Qualified Code(s): S09.90XA - Unspecified injury of head, initial encounter (2) Fall Encounter type: initial encounter Qualified Code(s): W19.XXXA - Unspecified fall, initial encounter
[2020-09-23] MEDS: CYANOCOBALAMIN 500 MCG TABLET (VITAMIN B-12) PO SCH (09:06)
[2020-09-23] MEDS: FAMOTIDINE 20 MG TAB PO SCH ×2 (09:06→20:29)
[2020-09-23] MEDS: cephALEXin 500 MG CAP PO SCH ×3 (09:06→20:29)
[2020-09-23] MEDS: CHOLECALCIFEROL 1,000 UNITS 25 MCG TAB PO SCH (09:06)
[2020-09-23] MEDS: ASPIRIN 81 MG ECTAB PO SCH (09:06)
[2020-09-23] MEDS: ATORVASTATIN 20 MG TAB PO SCH (09:06)
[2020-09-23] MEDS: bisacodyL 10 MG SUPP PR SCH (09:06)
[2020-09-23] MEDS: DOCUSATE SODIUM 100 MG CAP PO SCH ×2 (09:06→20:34)
[2020-09-23] MEDS: FOLIC ACID 400 MCG TAB PO SCH (09:07)
[2020-09-23] MEDS: PANTOprazole 40 MG TAB PO SCH (09:07)
[2020-09-23] MEDS: POLYETHYLENE (MIRALAX) 17 GM PACK PO SCH (09:07)
--- NOTE | 2020-09-23 16:02 | Orthopedic Progress Note ---
Date of Service September 23, 2020 Assessment & Plan (1) Closed left hip fracture: Postop day 5 s/p left cephalomedullary nail for peritrochanteric fracture. Making expected progress. Wound drainage evaluated - no overt sign of infection. Covered with Cephalexin for UTI. Cont POC. Will monitor. Keep dressing in place while hospitalized. Change daily or prn. May be open to air if dry for 24 hours after 7 days postop Weightbearing as tolerated and range of motion as tolerated, continue gait training VTE prophylaxis per primary team at this point Dispo: Will need orthopedic follow-up in 2-3 weeks for wound check, staple removal, and repeat x-rays. Stable for transition next level of care from an orthopedic perspective. Please contact with further questions Subjective Called to evaluate wound due to discharge Patient reports no significant pain. Said his day is 'going slow'. No other issues. Review of Systems All systems reviewed & are unremarkable except as noted in HPI & below. Physical Exam LLE: Dressing c/d/i and appears fresh. Peeled back to show mild spotting of serous drainage at the most proximal two wounds. Distal knee wound is dry. Thigh softening. DNVI. Constitutional WD/WN, vitals as above no acute distress and not intoxicated appearing Respiratory normal respiratory effort; no labored breathing Cardiovascular Extremities: normal capillary refill Results & Data Results & Data Laboratory Results H & H 09/17/20 09/18/20 09/19/20 Range/Units 18:15 06:04 06:58 Hgb 15.2 12.9 L 9.6 L D (14.0-18.0) g/dL Hct 44.3 38.1 L 28.7 L (42-52) % 09/19/20 09/20/20 09/21/20 Range/Units 15:54 06:53 07:58 Hgb 9.1 L 8.8 L 8.5 L (14.0-18.0) g/dL Hct 27.4 L 27.0 L 25.6 L (42-52) % 09/22/20 09/23/20 Range/Units 08:49 05:17 Hgb 8.9 L 9.3 L (14.0-18.0) g/dL Hct 26.9 L 28.4 L (42-52) % Coagulation 07/26/21 Range/Units 18:15 INR 0.9 (0.9-1.1) . Laboratory Tests 09/23/20 05:17 WBC 9.01 Diagnostic Findings . PG Care Time/CCT Total # of Minutes Spent Total Time Spent with Patient: Total time spent is greater than 50% in coordination of care (as documented) at patient's floor/unit and/or counseling patient: Coding Level of Care Code 26160 Post Operative Follow-Up Diagnoses Closed left hip fracture S72.002A
[2020-09-23] MEDS: DOCUSATE SODIUM/SENNA 50/8.6MG TAB PO SCH (20:34)
[2020-09-23] MEDS: ENOXAPARIN INJ 40 MG/0.4 ML SYR SQ SCH (20:36)
[2020-09-23] MEDS: MELATONIN 3 MG TAB PO SCH (20:36)
[2020-09-24] MEDS: cephALEXin 500 MG CAP PO SCH (01:11)
[2020-09-24 07:35] LABS: Hematocrit (blood only) 28.6 % (42-52); Hemoglobin 9.3 g/dL (14.0-18.0); Mean Corpuscular Hgb Conc 32.5 g/dL (32-36); Mean Corpuscular Volume 101.4 fL (80-100); Mean Platelet Volume 8.6 fL (7.4-10.4); Platelet Count 322 K/uL (130-400); RDW Coefficient of Variation 14.4 % (11.5-14.5); RDW Standard Deviation 48.9 fL (36.4-46.3); Red Blood Count 2.82 M/uL (4.7-6.1); White Blood Count 8.45 K/uL (4.8-10.8)
[2020-09-24 07:58] LABS: BUN Creatinine Ratio 20.7 (10-20); Calcium 8.5 mg/dl (8.5-10.1); Creatinine Clr Calc Pharmacy 55.7 ml/min; Est GFR (African American) 88.5 ml/min; Est GFR (Non-African American) 76.3 ml/min; Potassium 4.3 mmol/L (3.5-5.1)
[2020-09-24] MEDS: ASPIRIN 81 MG ECTAB PO SCH (09:14)
[2020-09-24] MEDS: FOLIC ACID 400 MCG TAB PO SCH (09:14)
[2020-09-24] MEDS: bisacodyL 10 MG SUPP PR SCH (09:15)
[2020-09-24] MEDS: ATORVASTATIN 20 MG TAB PO SCH (09:15)
[2020-09-24] MEDS: CHOLECALCIFEROL 1,000 UNITS 25 MCG TAB PO SCH (09:15)
[2020-09-24] MEDS: PANTOprazole 40 MG TAB PO SCH (09:15)
[2020-09-24] MEDS: POLYETHYLENE (MIRALAX) 17 GM PACK PO SCH (09:16)
[2020-09-24] MEDS: FERROUS SULFATE 325 MG TAB PO SCH (09:16)
[2020-09-24] MEDS: CYANOCOBALAMIN 500 MCG TABLET (VITAMIN B-12) PO SCH (09:16)
[2020-09-24] MEDS: DOCUSATE SODIUM 100 MG CAP PO SCH ×2 (09:21→19:59)
[2020-09-24] MEDS: FAMOTIDINE 20 MG TAB PO SCH ×2 (09:21→19:59)
[2020-09-24] MEDS: HYDROCODONE/ACETAMOPHEN 5/325MG TAB PO PRN (09:30)
--- NOTE | 2020-09-24 16:53 | Orthopedic Progress Note ---
Date of Service September 24, 2020 Assessment & Plan (1) Closed left hip fracture: Postop day 6 s/p left cephalomedullary nail for peritrochanteric fracture. Making expected progress. Cont POC. Stable with his wound/hip for transition to next level of care. Keep dressing in place while hospitalized. Change daily or prn. May be open to air if dry for 24 hours after 7 days postop Weightbearing as tolerated and range of motion as tolerated, continue gait training VTE prophylaxis per primary team at this point Dispo: Will need orthopedic follow-up in 2-3 weeks for wound check, staple removal, and repeat x-rays. Please contact with further questions Subjective Seen and evaluated this afternoon. No new issues. RN reported that she had changed the dressing and no new drainage. Patient reports that he 'feels good.' Review of Systems All systems reviewed & are unremarkable except as noted in HPI & below. Physical Exam LLE: Dressing c/d/i. Compartments further softened. No active drainage onto new dressing. Constitutional WD/WN, vitals as above no acute distress and not intoxicated appearing Respiratory normal respiratory effort; no labored breathing Cardiovascular Extremities: normal capillary refill Results & Data Results & Data Laboratory Results . Diagnostic Findings . PG Care Time/CCT Total # of Minutes Spent Total Time Spent with Patient: Total time spent is greater than 50% in coordination of care (as documented) at patient's floor/unit and/or counseling patient: Coding Level of Care Code 21047 Post Operative Follow-Up Diagnoses Closed left hip fracture S72.002A
--- NOTE | 2020-09-24 17:44 | Hospitalist Progress Note ---
Date of Service September 24, 2020 Assessment & Plan (1) Closed left hip fracture: Plan: Mechanical fall. CXR without acute process. UA without evidence of infection POD# 5 Left Hip Fracture Closed Reduction Internal Fixation with long cephalomedullary nail (Left) - Vlad Lujan MD EBL 100cc H/h 15 on admission (but suspect some hemoconcentration), was 12 prior to surgery (dilutional and acute blood loss from fx) Hgb stable to 9.3 today (low iron and got Venofer x 3 doses during admission)-- consider oral daily but holding for now given recent constipation/ileus Also continuing on B12 supplementation (increased today and also added folic acid low dose/low normal) --would continue at discharge. Vit D low 27 -- supplementation started and continued at d/c DVT Proph --> Lovenox SQ while inpatient. Given this being a fracture, would advise Xarelto X 30 to 35 days; however, drug, dose, duration are at the discretion of orthopedics SNF planned for d/c--awaiting bed/authorization. Case management on board (2) Urinary retention: Plan: likely secondary to constipation/possible UTI/and postsurgical Ceftriaxone IV given x 3 days which was then transitioned to Keflex which patie nt completed a full course Of antibiotic therapy Urine cx with mixed otis but had received abx prior to cx. Given the fact that patient needed to be straight cathed multiple times, will leave Llamas indwelling. Ask nursing staff to initiate bladder training. We will start Flomax. consider urology referral as an outpatient. (3) Constipation: Plan: Patient with postoperative ileus. Treated with bowel regimen. Last BM last e vening. Normal and formed. Mag citrate 09/22 with large BM reported Continue bowel regimen (4) Acute blood loss anemia: Plan: see above per ortho, nailing with significant bleeding -- also with bleeding in bed and saturated dressings has gotten IVF so suspect some dilutional, however did check iron stores which were low --> received 3 doses IV venofer while inpatient Patient is on Lovenox for DVT prophylaxis. Hold maintenance aspirin while on Lovenox. B12 also low normal -- given IM x1 and continued on oral supplementation Hgb improved today to 9.3 today -- continue to monitor No CP/SOB reported CBC in AM (5) Fall: Plan: Status post mechanical fall with closed head injury CT head negative. No focal deficit. At baseline cognitively per SHANTAL on prior conversations. Remains oriented at baseline From [facility] --> needing SNF prior to return there where his also resides (6) Hyperlipidemia: Plan: Atorvastatin 20 mg daily (7) GERD (gastroesophageal reflux disease): Plan: PPI (8) Insomnia: Plan: Melatonin 1 mg p.o. at bedtime as needed (9) Closed head injury: Plan: CT of head and cervical spine negative Some confusion regarding where he is at but quickly reoriented --> CT head negative on admission. Chronic microvascular changes. Continue ASA 81mg daily --> plans for BID at d/c for DVT proph for 6 weeks as above Plan: Continue to monitor blood counts, bowel regimen. CM following and ref sent to SNF -- likely no bed until next week as patient from [facility] and they are unable to take back at this time due to level of care. also resides in [facility] Niesha BLACK [id number] [phone] cell, home Dispo: continued inpatient stay, awaiting placement Admission and Anticipated Discharge Date Admission Date: September 17, 2020 Subjective Patient seen on daily rounds today. Pleasantly confused. Hospitalized 09/18 following a left hip fracture. Underwent IM nailing later that evening. Had an uneventful perioperative course. Postoperatively, had some urinary retention requiring multiple straight caths. Now with indwelling Llamas catheter. Thought to be due to constipation as patient also had a postoperative ileus. Subsequently, has had multiple BMs. Typically resides at [facility] personal care. Case management on board for placement to [facility] facility. As stated above, patient pleasantly confused but demented. Review of Systems Review of Systems: unobtainable Physical Exam Physical Exam: General: Resting comfortably in his bedside chair eating lunch. NAD. Neck: No JVD. Negative hepatojugular reflex Cardiac: RRR without M/G/R Lungs: CTA without W/R/R Abdomen: Normoactive X4. Soft and nontender in all quadrants. Extremities: Surgical dressing to left hip. No indwelling drains. Distal pulses to the bilateral extremities are intact and symmetrical bilaterally. Capillary refill +2. Negative Homans' sign. No calf tenderness. Neuro: Awake. Oriented to self but not to place/time/situation. Cranial nerves II through XII are grossly intact no focal neuro deficits Skin: No obvious skin lesions or rashes Results & Data Results & Data ([facility]) Vital Signs (Past 12 Hours) Vital Signs Temp Pulse Resp BP Pulse Ox 09/24/20 16:18 36.7 C 95 H 18 135/77 97 09/24/20 07:49 36.9 C 102 H 16 118/64 96 Laboratory Results 09/24/20 06:40 09/24/20 06:40 PG Care Time/CCT Total # of Minutes Spent Total Time Spent with Patient: Total time spent is greater than 50% in coordination of care (as documented) at patient's floor/unit and/or counseling patient: Coding [place] [address] Subseq Hosp Care Lvl 2 Patient Type Established History Expanded Problem Focused Exam Expanded Problem Focused Medical Decision Making Moderate Complexity Diagnoses Closed left hip fracture S72.002A Urinary retention R33.9 Constipation K59.00 Acute blood loss anemia D62 Fall W19.XXXA Encounter type: initial encounter Hyperlipidemia E78.5 GERD (gastroesophageal reflux disease) K21.9 Insomnia G47.00 Closed head injury S09.90XA Encounter type: initial encounter (1) Fall Encounter type: initial encounter Qualified Code(s): W19.XXXA - Unspecified fall, initial encounter (2) Closed head injury Encounter type: initial encounter Qualified Code(s): S09.90XA - Unspecified injury of head, initial encounter
[2020-09-24] MEDS: MELATONIN 3 MG TAB PO SCH (19:59)
[2020-09-24] MEDS: DOCUSATE SODIUM/SENNA 50/8.6MG TAB PO SCH (19:59)
[2020-09-24] MEDS: ENOXAPARIN INJ 40 MG/0.4 ML SYR SQ SCH (19:59)
[2020-09-24] MEDS: TAMSULOSIN HCL 0.4 MG CAP PO SCH (19:59)
[2020-09-25] MEDS: TAMSULOSIN HCL 0.4 MG CAP PO SCH (08:10)
[2020-09-25] MEDS: POLYETHYLENE (MIRALAX) 17 GM PACK PO SCH (08:10)
[2020-09-25] MEDS: CHOLECALCIFEROL 1,000 UNITS 25 MCG TAB PO SCH (08:11)
[2020-09-25] MEDS: CYANOCOBALAMIN 500 MCG TABLET (VITAMIN B-12) PO SCH (08:11)
[2020-09-25] MEDS: FERROUS SULFATE 325 MG TAB PO SCH (08:12)
[2020-09-25] MEDS: FAMOTIDINE 20 MG TAB PO SCH (08:12)
[2020-09-25] MEDS: PANTOprazole 40 MG TAB PO SCH (08:12)
[2020-09-25] MEDS: FOLIC ACID 400 MCG TAB PO SCH (08:12)
[2020-09-25] MEDS: ATORVASTATIN 20 MG TAB PO SCH (08:13)
[2020-09-25] MEDS: bisacodyL 10 MG SUPP PR SCH (08:14)
[2020-09-25] MEDS: DOCUSATE SODIUM 100 MG CAP PO SCH (08:17)
--- NOTE | 2020-09-25 17:26 | Discharge Summary ---
Date of Service September 25, 2020 Admission HPI Per Admitting Provider The patient is a 89-year-old male with a past medical history including hyperlipidemia, GERD, insomnia, and vitamin D deficiency, who presents with symptoms as noted above. Work-up in the emergency department included x-ray of pelvis and hip, which showed a closed left hip fracture. CT scan of head, cervical spine and abdomen pelvis were all normal. COVID-19 test was negative Admission Exam Per Admitting Provider The patient is awake, alert and oriented 3, well developed and well nourished, normocephalic and atraumatic, lying in bed and in no acute distress. HEENT--PERRL, EOMI, mucous membranes and oropharynx dry. Neck--supple. No JVD. No bruits. Thyroid normal, trachea midline, no adenopathy. Heart--normal S1 and S2. No murmurs, rubs or gallops. Lungs--clear bilaterally, no respiratory distress, no accessory muscle use. Abdomen--normal bowel sounds and soft. Nontender. Nondistended, no hernias or masses, no organomegaly. Extremities--no cyanosis or clubbing. No edema. There are good distal pulses b/l. Dermatologic--normal skin turgor, normal color, no abnormal lymph nodes, no rash. Neurologic--cranial nerves II through XII grossly intact. Rheumatologic--normal range of motion. Psychiatric--normal affect. Principal Diagnosis Working diagnosis: 1. Left hip fractures/p IM nailing 2. Postop ileusresolved 3. Postop anemiastable 4. Urinary retentionindwelling Llamas catheter in place with bladder training Chronic medical conditions: 1. Dementia 2. HLD 3. GERD Discharge Exam General: Resting comfortably in his bedside chair eating lunch. NAD. Neck: No JVD. Negative hepatojugular reflex Cardiac: RRR without M/G/R Lungs: CTA without W/R/R Abdomen: Normoactive X4. Soft and nontender in all quadrants. Extremities: Surgical dressing to left hip. No indwelling drains. Distal pulses to the bilateral extremities are intact and symmetrical bilaterally. Capillary refill +2. Negative Homans' sign. No calf tenderness. Neuro: Awake. Oriented to self but not to place/time/situation. Cranial nerves II through XII are grossly intact no focal neuro deficits Skin: No obvious skin lesions or rashes Discharge Data Allergies Allergy/AdvReac Type Severity Reaction Status Date / Time No Known Allergies Allergy Mild Verified 09/18/20 14:38 Consultations 09/17/20 20:00 ED Decision to Admit Stat 09/17/20 22:13 Consult Orthopedic Surgery Routinefor surgical intervention. Patient s/p IM nailing of left hip Procedures Performed Operation Date: 09/18/20 08:40 Actual Procedures p Internal Fixation with Left Long Cephalomedullary Nail (Left) - Vlad Lujan MD s Left Hip Fracture Closed Reduction(Left) - Vlad Lujan MD Ordered Studies XR hip LT 2V w pelvis X-ray of hip and pelvis 09/17: FINDINGS: Mild to moderate osteoarthritis of the there is an acute comminuted intertrochanteric fracture of the left femur with mild impaction and mild apex superior lateral angulation. The greater trochanteric fracture fragment is displaced laterally 2.5 cm. The lesser trochanteric fracture fragment is displaced a few millimeters medially. Moderate adjacent soft tissue swelling. IMPRESSION: Acute comminuted intertrochanteric fracture of the left femur with mild impaction, angulation and displacement. CXR 09/17: No acute cardiopulmonary process CT of the C-spine 09/17: FINDINGS: Severe degeneration at C1-C2. Mild multilevel intervertebral disc space narrowing with moderate spondylitic spurring and moderate to severe facet arthrosis. No acute fracture or subluxation. No endplate erosions. Evaluation of the central canal and neuroforamina is better assessed by MRI. Multilevel neural foraminal narrowing is noted. Mastoid air cells are clear. Pleural parenchymal scarring of the lung apices. No prevertebral edema. Calcified plaque of the carotid bulbs. IMPRESSION: No acute fracture or subluxation. CT of the head: No acute intracranial process CT of the abdomen and pelvis 09/17: IMPRESSION: 1. Acute mildly impacted, comminuted, displaced and angulated intratrochanteric fracture of the left femur. 2. No acute intra-abdominal or intrapelvic abnormality. 3. Trace left pleural effusion with left lung base pleural thickening. 4. Small to moderate hiatal hernia. 5. Small fat and small bowel containing right inguinal hernia. No bowel obstruction. 6. Additional findings as above. X-ray of the hip 09/18: IMPRESSION: Fluoroscopy provided for internal fixation of a left femoral fracture. X-ray of left femur 09/18: IMPRESSION: Status post internal fixation of a left femoral intertrochanteric fracture. The hardware appears intact. CXR 09/19: No acute intracardiac process KUB 09/20: IMPRESSION: 1. Moderate well-formed stool within the colon. The colon is borderline distended and gas-filled raising the possibility of a postoperative ileus. 2. Status post internal fixation of a left femoral intertrochanteric fracture. KUB 09/21: IMPRESSION: No change in the borderline dilated gas and stool-filled colon. KUB 09/22: IMPRESSION: Nonobstructed abdominal bowel gas pattern. No significant change from yesterday. Hospital Course (1) Closed left hip fracture: Mechanical fall. CXR without acute process. UA without evidence of infection POD# 6 Left Hip Fracture Closed Reduction Internal Fixation with long cephalomedullary nail (Left) - Vlad Lujan MD EBL 100cc H/h 15 on admission (but suspect some hemoconcentration), was 12 prior to stefan kanwal (dilutional and acute blood loss from fx) Hgb stable to 9.3 today (low iron and got Venofer x 3 doses during admission)--continue oral daily X 30 days Also continuing on B12 supplementation (increased today and also added folic acid low dose/low normal) --we will continue Vit D low 27 -- supplementation started and continued at d/c DVT Proph --> Lovenox SQ while inpatient. Given this being a fracture, would advise Xarelto X 30 to 35 days. Drug, dose, duration has been defaulted to primary team rather than orthopedics. Will discharge with Xarelto. Patient to hold aspirin while on Xarelto Discharge to [facility] for continued inpatient PT/OT (2) Urinary retention: likely secondary to constipation/possible UTI/and postsurgical Ceftriaxone IV given x 3 days which was then transitioned to Keflex which patient completed a full course Of antibiotic therapy Urine cx with mixed otis but had received abx prior to cx. Given the fact that patient needed to be straight cathed multiple times, will leave Llamas indwelling. Bladder training initiatedwould recommend this be continued per protocol and removal of Llamas at discretion of house physician Patient now on Flomax. consider urology referral as an outpatient. (3) Constipation: Patient with postoperative ileus. Treated with bowel regimen. Having daily BMs. normal and formed. Mag citrate 09/22 with large BM reported Continue bowel regimen (4) Acute blood loss anemia: see above per ortho, nailing with significant bleeding -- also with bleeding in bed and saturated dressings has gotten IVF so suspect some dilutional, however did check iron stores which were low --> received 3 doses IV venofer while inpatient Patient is on Lovenox for DVT prophylaxis. Hold maintenance aspirin while on Lovenox. B12 also low normal -- given IM x1 and continued on oral supplementation Hgb improved today to 9.3 today -- continue to monitor No CP/SOB reported CBC in AM (5) Fall: Status post mechanical fall with closed head injury CT head negative. No focal deficit. At baseline cognitively per SHANTAL on prior conversations. Remains oriented at baseline From [facility] unit --> needing SNF prior to return there where his also resides (6) Hyperlipidemia: Atorvastatin 20 mg daily (7) GERD (gastroesophageal reflux disease): PPI (8) Insomnia: Melatonin 1 mg p.o. at bedtime as needed (9) Closed head injury: CT of head and cervical spine negative Some confusion regarding where he is at but quickly reoriented --> CT head negative on admission. Chronic microvascular changes. Continue ASA 81mg daily --> plans for BID at d/c for DVT proph for 6 weeks as above Dispo: Discharged to [facility] for continued inpatient rehabilitation Follow-up with orthopedics as outlined by them Recommend follow-up by house physician within 24 to 48 hours Recommend repeat CBC in 1 week to continue trending H&H. Would hold aspirin while on Xarelto Trial of bladder training prior to removal of Llamas catheter. May consider urology referral. Flomax on board Continue bowel regimen Total Time Total Time Spent Total Time Spent (In Minutes): 45 Discharge Plan Discharge Items Patient Disposition: Transfer [facility] Reason For Visit: CLOSED LEFT HIP FRACTURE Discharge Diagnosis: 1. Left Hip Fracture s/p IM nailing 2. Urinary Retention 3. Constipation/Postop Ileus-- resolved 4. Post-op Anemia- stable Activity: Resume your previous activity Weightbearing: Full weightbearing Non-emergency contact: Primary Care Provider Call non-emergency contact if: you have any medication questions and your symptoms worsen Follow-up/Referrals: Vlad Lujan MD [Surgeon] - [facility] [Primary Care Provider] - Diet: Heart Healthy [facility] Attending Provider Instructions: Orthopaedic Instructions after Hip Fracture Surgery: Please keep your wound clean and dry. Do not remove any of the mel. [place] were removed at your follow-up appointment with orthopedic surgery. Please continue daily dressing changes until your follow-up appointment. If there is no drainage onto the dressing for total of 24 hours, you may shower after 5 days from surgery. Allow soap and water to run over the incision, no scrubbing, and pat dry. Do not submerse (sitting in bathtub, hot tub, jacuzzi, pool, etc) the wound for at least 3 weeks. You may bear weight on your lower extremities as tolerated. Please use the walker or as instructed by physical therapy. For pain control please use Tylenol as needed. You may also have a stronger pain medication prescribed to you at discharge. You can also apply ice to the surgical site. To reduce the risk of dangerous blood clots please continue aspirin 325 mg by mouth daily or the medication for blood clots recommended by your medical team. Orthopedic clinic follow-up should be in 2-3 weeks after surgery for repeat x- ray. Mel can be removed at the orthopedic follow-up. If necessary, mel can be removed by a nurse at home or at a nursing facility upon our order. Pl ease contact the clinic. Add Investigation Clerk Provider Instructions: - Patient to take all medications as outlined - Follow recommendations (regarding post-surgical state) as outlined above - Xarelto on board for DVT prophylaxis (x24 more days) - while on Xarelto, hold ASA. Once completed-- may resume ASA - Patient being discharged with Llamas Catheter for urinary retention. Has since been started on Flomax (BID x 1 week then daily). Recommend continuation of Bladder training (as per house protocol) and removal of Llamas per House Physician. May consider urology consult - Take B12/Iron/Folate as outlined - Recommend FU labs in 1 week (CBC-- to trend hemaglobin). Labs at discretion of house Physician - note Bowel Regimen on board. - Follow up with House Physician within 24-48 horus - Follow up with Ortho: as outlined Pending Studies at Discharge: No Stand-Alone Forms: My [facility] Skilled Items Patient informed of condition?: Yes DNR: No Discharge Level of Care: Skilled Communicable Disease: No Discharge Prognosis: Stable Lines: None Urinary Catheter: Yes Medications and DC Order Prescriptions: New tamsulosin 0.4 mg Capsule 0.4 mg PO BID Qty: 45 RF: 0 ferrous sulfate 325 mg (65 mg iron) Tablet,Delayed Release (Dr/Ec) 325 mg PO QAM Qty: 30 RF: 0 Xarelto 10 mg tablet 10 mg PO DAILY Qty: 24 RF: 0 polyethylene glycol 3350 [Miralax] 17 gram Powder In Packet 17 g PO DAILY PRN (Reason: constipation) Qty: 30 RF: 0 hydrocodone-acetaminophen 5-325 mg Tablet 1 tab PO Q4H PRN (Reason: pain) Qty: 36 RF: 0 folic acid 400 mcg Tablet 400 mcg PO QAM Qty: 30 RF: 0 cyanocobalamin (vitamin B-12) 500 mcg Tablet 1,000 mcg PO QAM Qty: 30 RF: 0 bisacodyl 10 mg Suppository 10 mg NM Q3D PRN (Reason: constipation) Qty: 30 RF: 0 pantoprazole 40 mg Tablet,Delayed Release (Dr/Ec) 40 mg PO QAM Qty: 30 RF: 0 Continued atorvastatin 20 mg tablet 20 mg PO DAILY RF: 0 famotidine 20 mg tablet 20 mg PO BID RF: 0 docusate sodium 100 mg Capsule 100 mg PO BID RF: 0 melatonin 1 mg Tablet 1 mg PO HS RF: 0 cholecalciferol (vitamin D3) [Vitamin D3] 25 mcg (1,000 unit) Tablet 25 mcg PO DAILY RF: 0 acetaminophen 500 mg Tablet 1,000 mg PO Q6H MDD 4g PRN (Reason: Fever Or Pain) RF: 0 Discontinued aspirin [Aspirin Low Dose] 81 mg Tablet,Delayed Release (Dr/Ec) 81 mg PO DAILY RF: 0 Discharge Orders: Discharge Order (Routine); Ordered 09/25/20 Ordered By: Claudette Roa/Other Patient Handouts: After a Hip Fracture: Common Questions Admission Data Admit Date/Time: 09/17/20 20:50 Attending Provider: Swapnil Kelly Admit Provider: Chaka Casillas Primary Care Provider: Brii oglesbyColton Other Providers: Chaka Casillas ; Vlad Lujan ; Uvaldo Rouse [facility] [place] ; [facility] Other Interventions: Discharge Summary Assessment (RN) Last Done: 09/25/20 10:10 Coding Level of Care Code Established Pt D/C DAY MANAGEMENT >30 MINS Patient Type Established Diagnoses Closed left hip fracture S72.002A Urinary retention R33.9 Constipation K59.00 Acute blood loss anemia D62 Fall W19.XXXA Encounter type: initial encounter Hyperlipidemia E78.5 GERD (gastroesophageal reflux disease) K21.9 Insomnia G47.00 Closed head injury S09.90XA Encounter type: initial encounter Time Spent (min) 45
[2020-10-02] MEDS ORDERED: TAMSULOSIN HCL 0.4 MG CAP PO SCH (09:00)
--- NOTE | 2020-10-04 06:49 | Coding Query ---
Your help is needed for correct coding of this account; please clarify if the patients Post-operative Ileus was: (x ) expected out of the surgery: this is a common post op complication ( ) unexpected complication from the surgery ( )other please specifiy Thank you Ibrahima CORDOVA
== END 2020-09-25 15:16 | DRG 481 ==
LOC: ED 17:59 → SUATTDRO 20:50 → 3W 20:50